=== PATIENT | male | born 1955 | race Caucasian/White ===

== ENCOUNTER 2024-09-28 07:15 | Inpatient (IN) | payer OTHER, SELFPAY ==
[2024-09-28] VITALS (26 sets, daily range): BP systolic 95–140; BP diastolic 50–89; BMI 22.9
[2024-09-28 04:53] LABS: % Basophils 0.2 % (0-2); % Eosinophils 0.4 % (0-6); % Immature Granulocytes 0.4 % (0-0.5); % Lymphocytes 11.3 % (20.5-51.1); % Monocytes 15.5 % (1.7-9.3); % Neutrophils 72.2 % (42.2-75.2); Absolute Lymphocytes 1.2 10^3/uL (1.2-3.4); Absolute Monocytes 1.6 10^3/uL (0.1-0.6); Absolute Neutrophils 7.4 10^3/uL (1.4-6.5); Hematocrit 37.2 % (39.0-52.0); Hemoglobin 13.2 g/dL (13.0-18.0); Mean Corp Hgb Conc. 35.5 g/dL (33.0-37.0); Mean Corpuscular Hgb 31.2 pg (27.0-31.0); Mean Corpuscular Volume 87.9 fL (80.0-94.0); Nucleated Red Blood Cells % 0 % (-); Platelet Count 163 10^3/uL (130-400); Red Blood Cell Count 4.23 10^6/uL (4.70-6.10); Red Cell Dist. Width 13.3 % (11.5-14.5); White Blood Cell Count 10.2 10^3/uL (4.8-10.8)
[2024-09-28 05:00] LABS: ALT (SGPT) 34 U/L (0-50); AST (SGOT) 115 U/L (17-59); Albumin 3.8 g/dl (3.5-5.0); Alkaline Phosphatase 61 U/L (38-126); Blood Urea Nitrogen 19 mg/dl (9-20); Calcium 9.4 mg/dl (8.4-10.2); Carbon Dioxide 24 mmol/L (22-30); Chloride 108 mmol/L (98-107); Estimated Creatinine Clearance 59 ml/min; Glucose 196 mg/dl (70-99); Potassium 3.9 mmol/L (3.5-5.1); Sodium 141 mmol/L (135-145); Total Bilirubin 0.7 mg/dl (0.2-1.3); Total Protein 6.3 g/dl (6.3-8.2); eGFR > 60.00
--- NOTE | 2024-09-28 05:30 | ED.GENMED ---
History of Present Illness
General
Chief Complaint: Chest Pain
Source: patient and ambulance crew
Exam Limitations: none
Time Seen by Provider: 09/28/24 05:29
Nursing documentation reviewed up to this point in time: agreed with
History of Present Illness
History of Present Illness:
Pleasant 68-year-old male presents to the emergency department with substernal chest pain that is present for the last 2 days. He states that it feels like that he has gas. He did not come into the emergency department because he thought that the
gas would resolve. Last evening the pain increased so he called 911. Patient states that he was using a rowing machine on Sunday morning when the pain developed. He went out to dinner on Sunday night and stated that the pain worsened. Patient
denies previous cardiac history. Has not seen a psychology assistant. He does have a history of hypertension. He is diabetic.
Past History
Past History
ED Past Medical History: HTN, NIDDM and Other (Kidney stones, Melanoma L upper arm)
ED Past Surgical History: None
Social History
Tobacco: Non-smoker
Alcohol: None
Personal:
Living: with family
Review of Systems
Review of Systems
Allergies reviewed?: Yes
All Other Systems: ROS reviewed and negative except as documented in HPI and ROS
Constitutional: Reports no symptoms
EENT: Reports no symptoms
Respiratory: Reports no symptoms
Cardiac: Reports chest pain
ABD/GI: Reports no symptoms
: Reports no symptoms
Musculoskeletal: Reports no symptoms
Skin: Reports no symptoms
Neurological: Reports no symptoms
Endocrine: Reports no symptoms
Hematologic/Lymphatic: Reports no symptoms
Psychiatric: Reports no symptoms
Phy Exam
General Physical Exam
General Presentation: well appearing and mild distress
General age: appears stated age
General Skin: warm and dry
General Habitus: normal
General Mental: alert
General Hydration: appears well hydrated
ENT Exam
ENT Exam: EOMI, pharynx normal, neck supple and normocephalic
Eye Exam
Eye Exam: PERRL, cornea clear and conjunctiva normal
Cardiovascular Exam
Cardiovascular Exam: regular rate/rhythm, no edema, no murmur and normal peripheral pulses
Pulmonary Exam
Pulmonary Exam: lungs clear, no respiratory distress, no rales, no crackles, no rhonchi, no stridor, no wheezing and no cough
Gastrointestinal Exam
Gastrointestinal Exam: normal bowel sounds, non tender, soft, no organomegaly, no pulsatile mass and non distended
Neurological Exam
Neurological Exam: alert, oriented x3, no motor deficits and speech normal
Musculoskeletal Exam
Musculoskeletal Exam: full ROM and no edema
Skin Exam
Skin Exam: normal color, warm/dry, no rash and no petechia
Psychiatric Exam
Psychiatric Exam: normal mood/affect
Scores
Heart Score for Chest Pain Patients
STEMI patient?: No
History: Highly Suspicious
ECG: Nonspecific Repolarization
Age: >/= 65 years
Risk Factors: >/= 3 Risk Factors or History of CAD
Troponin: >/= 3 x Normal Limit
Heart Score for Chest Pain Patients: 9
Heart Score Risk: 72.7 % MACE over next 6 weeks
Course
Orders/Labs/Results
Orders:
Orders
09/28/24 04:21
Electrocardiogram (*1) Urgent
Reason for Study: Chest Pain
09/28/24 04:22
EKG- Treatment ONCE
09/28/24 04:36
Complete Blood Count/With Diff Urgent
Comprehensive Metabolic Panel Urgent
Troponin I Urgent
09/28/24 05:29
EKG [Electrocardiogram (*1)] Urgent
Reason for Study: Chest Pain
EKG- Treatment ONCE
Aspirin 325 mg PO NOW STA
Heparin 4,000 units IV NOW STA
09/28/24 05:31
PTT Urgent
09/28/24 05:43
Nitroglycerin Sublingual [Nitrostat (Sublingual)] 0.4 mg SL NOW STA
09/28/24 05:[address] Non Medication Order As Directed
Physician Order: PTT 6 hours after initial start of Heparin infusion
Above order entered?: Yes
09/28/24 05:48
CR Chest Portable - 1 View Urgent
Comment:
Reason For Exam: cp
Reason Study Needs to be Portable: Patient Unstable
09/28/24 Breakfast
NPO
Allow oral meds: Yes
Allow clear liquids: Sips of Clears
Flush (0.9% Sodium Chloride) [Flush (Nss)] See Dose Instructions IV PER PROTOCOL
Heparin 35640 Units/250 ml 25,000 units in 250 ml IV PER PROTOCOL
Weight to be used for heparin protocol in kilograms (kg):: 72.3
Protocol:: Cardiac Tx/Acute Coronary
PTT Goal Range to be used:: PTT 73 to 111 seconds
Order type:: Initial
INITIAL Infusion Dose (UNITS/KG/hr) & then follow protocol:: 15 units/kg/hr
Infusion Dose in UNITS/hr & then follow protocol (UNITS/hr):: 1,100
INFUSION RATE in mL/hr & then follow protocol (mL/hr):: 11
PTT less than or equal to 64 seconds:: Increase rate by 200 units/hr (+ 2 mL/hr)
PTT 64.1 to 72.9 seconds:: Increase rate by 100 units/hr (+ 1 mL/hr)
PTT 73 to 111 seconds:: Target Range. No change in rate.
PTT 111.1 to 130.9 seconds:: Decrease rate by 100 units/hr (- 1 mL/hr)
PTT 131 to 199.9 seconds:: HOLD for 1 hr. Then decrease rate by 200 units/hr (- 2 mL/hr)
PTT greater than or equal to 200 seconds:: HOLD for 2 hrs & Notify Provider. Then decrease by 200 units/hr (-
2 mL/hr)
Lab follow-up:: Each change, PTT q6h until 2 consecutive are therapeutic. Then PTT
daily.
Nitroglycerin Sublingual [Nitrostat (Sublingual)] 0.4 mg SL NOW STA
09/28/24 06:34
Heparin 1000 Units/500 ml [Heparin] 1,000 units in 500 ml .ROUTE .STK-MED
Heparin Sodium,Porcine/Ns/Pf [Heparin 2000 Units/1000 ml] 2,000 unit in 1,000 ml .ROUTE .STK-MED
Lidocaine HCl/Pf [Xylocaine-Mpf 1% Vial] 100 mg .ROUTE .STK-MED ONE
Verapamil Injectable [Isoptin/Verapamil Injection] 5 mg .ROUTE .STK-MED ONE
09/28/24 06:35
Nitroglycerin [Tridil] 1,500 mcg .ROUTE .STK-MED ONE
09/28/24 06:42
Fentanyl Citrate/Pf [Sublimaze] 100 mcg .ROUTE .STK-MED ONE
Midazolam HCl [Versed] 2 mg .ROUTE .STK-MED ONE
09/28/24 06:45
Heparin 10,000 units .ROUTE .STK-MED ONE
09/28/24 06:51
Admit/Transfer Patient As Directed
Co-Sign Provider:
Level of Care: Inpatient admission
Assign to:: IVU
Physician / Group: hospitalist
Diagnosis: NSTEMI
Reason for Hospitalization: NSTEMI
Expected length of stay greater than two midnights?: Yes
ELOS- Estimated Length of Stay in days: 2
I certify the patient meets the requirements for IP care: Yes
Code Status As Directed
Resuscitation Status: Full Code
PRN Pain Medication Management As Directed
May give lesser potent ordered pain med per pt: Yes
preference::
Protocol:: Medication orders for pain may be administered in a
manner that supports deferring to patient preference
when the pt is:
- Requesting an ordered lesser potent pain medication.
Least to most potent pain medications are defined
as: acetaminophen < NSAID < tramadol < opioids
(morphine, oxycodone, hydromorphone).
- Requesting a lesser dose of the same medication IF
ORDERED.
- Requesting a less intrusive route of administration
if both routes are prescribed by the provider (PO <
IV).
09/28/24 08:18
Electrocardiogram (*1) Q6H
Reason for Study: Chest Pain
Comment: at admission and Q3H for total of 3, to be done with each troponin
Acetaminophen [Tylenol] 650 mg PO Q4HPRN PRN
Docusate Sodium [Colace] 100 mg PO BID
Insulin Aspart Corrective Low [Novolog Flexpen-Low Resistance] See Protocol SC AC
Mag Hydrox/Al Hydrox/Simeth [Maalox] 30 ml PO Q4HPRN PRN
Nitroglycerin Sublingual [Nitrostat (Sublingual)] 0.4 mg SL [id number] PRN
Ondansetron Injectable [Zofran] 4 mg IV Q6HPRN PRN
09/28/24 08:18
CARDIOLOGY CONSULT Routine
Consulting Provider: Tessy Epstein
Was physician already notified: Yes
Heparin Protocol- PTT Orders As Directed
PTT per Heparin protocol: -Obtain CBC and baseline PTT - if not already collected.
-Obtain PTT 6 hours from start of infusion. Then, every 6 hours until 2 consecutive
PTT's are therapeutic. Then, PTT Daily.
-With each rate change, obtain PTT every 6 hours until 2 consecutive PTT's are
therapeutic. Then, PTT Daily.
Activity As Directed
Activity Level: With Assistance
Bedside Glucose Monitoring As Directed
Frequency: Q6H
INT (Intravenous Needle Therapy) As Directed
Comment: maintain peripheral IV access
Intake/ Output As Directed
Frequency: Per unit guidelines
Notify MD As Directed
Notify physician if: PTT is greater than or equal to 200.
Pneumatic Compression Sleeves As Directed
Type: Knee high
Vital Signs As Directed
Frequency: q4h
Weight As Directed
Frequency: Daily
O2 Therapy [RESP] Routine
Nasal Cannula Liter Flow: 2 LPM
Titrate/Wean O2 to maintain O2 sat greater than (%): 95
Pulse Ox/spot Check [RESP] Routine
Quantity: 1
Special Instructions: on admission and then every shift if on oxygen
DX Deep Vein Thrombosis Video Routine
09/28/24 08:53
Basic Metabolic Panel Routine
Cardiovascular Evaluation Routine
Troponin I Q3H
Comment: at admit & Q3H for 3 total including ED draws, obtain ECG with each level
09/28/24 11:47
PTT Urgent
09/28/24 14:18
Electrocardiogram (*1) Q6H
Reason for Study: Chest Pain
Comment: at admission and Q3H for total of 3, to be done with each troponin
09/28/24 18:00
Atorvastatin [Lipitor] 40 mg PO QPM
09/28/24 20:18
Electrocardiogram (*1) Q6H
Reason for Study: Chest Pain
Comment: at admission and Q3H for total of 3, to be done with each troponin
09/29/24 08:00
Aspirin Chewable [Low Strength Aspirin] 81 mg PO DAILY
09/30/24 06:00
Complete Blood Count/No Diff Q2D
Comment: notify provider: Platelet count < 130,000 or decrease by 50% from baseline
10/02/24 06:00
Complete Blood Count/No Diff Q2D
Comment: notify provider: Platelet count < 130,000 or decrease by 50% from baseline
10/04/24 06:00
Complete Blood Count/No Diff Q2D
Comment: notify provider: Platelet count < 130,000 or decrease by 50% from baseline
10/06/24 06:00
Complete Blood Count/No Diff Q2D
Comment: notify provider: Platelet count < 130,000 or decrease by 50% from baseline
10/08/24 06:00
Complete Blood Count/No Diff Q2D
Comment: notify provider: Platelet count < 130,000 or decrease by 50% from baseline
10/10/24 06:00
Complete Blood Count/No Diff Q2D
Comment: notify provider: Platelet count < 130,000 or decrease by 50% from baseline
10/12/24 06:00
Complete Blood Count/No Diff Q2D
Comment: notify provider: Platelet count < 130,000 or decrease by 50% from baseline
10/14/24 06:00
Complete Blood Count/No Diff Q2D
Comment: notify provider: Platelet count < 130,000 or decrease by 50% from baseline
Abnormal Lab Results
09/28/24
04:36
RBC 4.23 L 10^6/uL
(4.70-6.10)
Hct 37.2 L %
(39.0-52.0)
MCH 31.2 H pg
(27.0-31.0)
MPV 11.0 H fL
(7.4-10.4)
Absolute Neuts (auto) 7.4 H 10^3/uL
(1.4-6.5)
Absolute Monos (auto) 1.6 H 10^3/uL
(0.1-0.6)
Lymphocytes % 11.3 L %
(20.5-51.1)
Monocytes % 15.5 H %
(1.7-9.3)
Chloride 108 H mmol/L
(98-107)
Glucose 196 H mg/dl
(70-99)
AST 115 H U/L
(17-59)
Troponin I 20.200 H* ng/ml
09/28/24 04:36
09/28/24 04:36
Vital Signs
Initial and Last Documented VS:
Initial Vital Signs
Temp Pulse Resp BP Pulse Ox
97.8 F 74 18 140/76 100
09/28/24 04:18 09/28/24 04:18 09/28/24 04:18 09/28/24 04:18 09/28/24 04:18
Last Documented Vital Signs
Temp Pulse Resp BP Pulse Ox
98.5 F 57 16 106/59 99
09/28/24 22:06 09/28/24 22:30 09/28/24 22:06 09/28/24 22:05 09/28/24 22:06
*Critical Care Note
Total Time (30-74mins, 75-104mins- exclusive of procedures): 41 (Critical care statement: A total of 41 minutes of critical care time was provided for this patient. This time is separate from time utilized to perform the aforementioned documented
procedures. Aggregate critical care time includes only time during which I was engaged in work directl)
Update Note
Update Note:
Spoke with Dr. Sadie Epstein, and Dr. Vitaliy Daugherty. The plan is to get the patient chest pain free. He has already received aspirin and heparin. He is getting nitroglycerin. His pain is currently rated at '0.25 out of 10'.
6:03 AM�at the advice of Dr. Epstein, heart risk non-STEMI Child Day Care Teacher activated.
Patient's pain is still less than 1 despite multiple nitroglycerin
ED Attending Note
-
Portions of this chart may have been created with voice recognition software.� Occasional wrong word or��sound alike� substitutions may have occurred due to the inherent limitations of voice recognition software.
Discharge Plan
Departure
Patient Disposition: RESTORATIVE ART EMBALMER
Date of Disposition: 09/28/24
Time of Disposition: 06:06
Presentation/result/management discussed w/ accepting MD/DO: Hospitalist
Condition: Fair
Discharge Problem:
Non-ST elevated myocardial infarction (non-STEMI)
Interventions
Interventions:
*Risk Screen - Suicide Last Done: 09/28/24 10:52
*General Assessment Last Done: 09/28/24 04:35
*Neglect/Abuse Screening Last Done: 09/28/24 04:18
*ED- Fall Risk Assessment Last Done: 09/28/24 04:35
*ED COVID-19 Vaccine History Last Done: 09/28/24 04:35
*Nursing Disposition Last Done: 09/28/24 07:16
BP-Jivcyg-Kuzgwqxbjy Assessment Last Done: 09/28/24 05:06
ED- Cardiac Assessment Last Done: 09/28/24 05:06
ED-Musculoskeletal Assessment Last Done: 09/28/24 05:06
Discharge Date and Time
Discharge Date/Time: 09/28/24 07:00
[2024-09-28] MEDS: ASPIRIN 325 MG PO (05:47)
[2024-09-28] MEDS: NITROSTAT (SUBLINGUAL) 0.4 MG SL ×2 (05:47→06:01)
[2024-09-28 05:48] LABS: APTT 28.8 Sec (23.4-35.0)
[2024-09-28] MEDS: HEPARIN 4000 UNITS IV (05:48)
[2024-09-28] MEDS: HEPARIN 25000 UNITS/250 ML IV ×2 (06:03→12:18)
--- NOTE | 2024-09-28 06:43 | HPS.HSE ---
Family Physician
-
Family Physician: Anand Mercado
Chief Complaint
-
Chest pain
History of Present Illness
This is a 68-year-old male with past medical history significant for hsp-hhmbqbe-tkigsjsua diabetes, hypertension, Parkinson presenting to the emergency department following a 1 day history of intermittent chest pain.
The patient reported that he had a vigorous rowing exercise in the morning. Afterwards he developed what he called epigastric discomfort which he thought was squeezing type pain. Patient thought this may be related to his heartburn and took some
heartburn remedies. He did have some improvement and decided not to be evaluated in the hospital. Later on during the day and through the night he continued to have pain in his chest. He then felt weak and not his usual self. He denied having
any diaphoresis. He denies any radiation of the pain to his back neck jaws or arms. Denies feeling dizzy or lightheaded.
Patient denies history of exertional chest pain or exertional dyspnea. He denies any recent episodes of palpitations lightheadedness dizziness. He denies any lower extremity swelling. He denies orthopnea or PND. He reports family history with
mother and father with MIs in the 70s. He reports that his last A1c was 9. He denies personal history of coronary artery disease. Denies alcohol use. Denies tobacco.
This pain was improved after sublingual nitroglycerin. He reports that his pain was as high as a 2 out of 10 and currently describes the pain that is 0.1 out of 10. He still feels that there is something painful going on but was mostly negligible.
On arrival in the emergency department blood pressure was in the 110s over 60s with a pulse in the 60s. He was satting 98% on room air and was afebrile. ECG shows T wave inversions in the inferior and lateral leads. His troponin was 20. CBC was
unremarkable stop electrolytes BUN/creatinine were normal. Glucose was 190 but otherwise unremarkable.
Space Technologist activated.
Medical History
Past Medical History
Past Medical History: Reports HTN, NIDDM and Other (Parkinson disease)
Past Surgical History: Reports Other (Hernia repair)
Social History
Tobacco: Non-smoker
Alcohol: Occasional
Drug: None
Personal:
Living: With Family
Employment: Retired
Family History
Family History: Not pertinent
Allergies / Home Medications
Allergies reflects when Allergies were last updated in [facility].
Home Medications with original date entered in [facility]
Allergy/Medication List:
Allergies
Allergy/AdvReac Type Severity Reaction Status Date / Time
No Known Allergies Allergy Verified 09/09/20 07:24
Home Medications
benazepril 5 mg tablet (Lotensin) 5 mg PO DAILY 02/18/20
metformin 500 mg tablet 500 mg PO BID 02/18/20
amlodipine 5 mg tablet 5 mg PO DAILY 09/28/24
empagliflozin 10 mg tablet (Jardiance) 10 mg PO DAILY 09/28/24
Review of Systems
-
History Source: Patient
Constitutional: Reports No Symptoms
EENT: Reports No Symptoms
Respiratory: Reports No Symptoms
Cardiac: Reports Chest Pain
Abdomen/GI: Reports No Symptoms
: Reports No Symptoms
Musculoskeletal: Reports No Symptoms
Skin: Reports No Symptoms
Neurological: Reports No Symptoms
Endocrine: Reports No Symptoms
Hematologic/Lymphatic: Reports No Symptoms
Psych: Reports No Symptoms
Physical Exam
Vital Signs
Vital Signs
Temp Pulse Resp BP Pulse Ox
97.8 F 68 9 109/60 98
09/28/24 04:18 09/28/24 06:00 09/28/24 06:00 09/28/24 06:01 09/28/24 06:00
Physical Exam
General: Well Developed, Well Nourished, No Apparent Distress and Comfortable
HEENT: NormoCephalic, Anicteric, Moist mucous membranes and Atraumatic
Respiratory: Clear
Cardiac: S1/S2 and Regular Rhythm
Breast: Deferred by me
GI: Soft, Non Tender, Non Distended and Normal Bowel Sounds
Rectal: Deferred by Provider
Genito-urinary: Deferred by me
Musculoskeletal: No Clubbing, No Cyanosis and No Edema
Skin: Warm and Dry
Neuro: AO x 3 and Nonfocal/grossly intact
Hematologic/Lymphatic: No Lymphadenopathy
Psych: Calm
Laboratory Results
-
09/28/24 04:36
09/28/24 04:36
Laboratory Results
APTT 28.8 Sec (23.4-35.0) 09/28/24 05:31
Total Bilirubin 0.7 mg/dl (0.2-1.3) 09/28/24 04:36
AST 115 U/L (17-59) H 09/28/24 04:36
ALT 34 U/L (0-50) 09/28/24 04:36
Alkaline Phosphatase 61 U/L (38-126) 09/28/24 04:36
Troponin I 20.200 ng/ml H* 09/28/24 04:36
Data Reviewed
-
Medical Tests (Nuc Med, Echo, EKG etc): Image Personally Visualized and interpreted
Lab Data: Labs Reviewed by me
Old Records: Reviewed
Impression/Plan
-
IMPRESSION:
68-year-old male with history of ivo-dxuhahu-iflpkxrcb diabetes coming in with chest pain found to have elevated troponin of 20 consistent with NSTEMI. Patient is currently chest pain-free with a level that is mostly negligible at 0.1 out of 10.
ECG shows T wave inversions in the inferior leads without any recent priors to compare but compared to older priors this is a significant change. He also has PVCs. BPs in the low 100s after sublingual nitroglycerin. Electrolyte BUN/creatinine are
stable. CBC is unremarkable.
PLAN:
NSTEMI -hemodynamically stable and currently chest pain-free
-Admit to IVU
-Continue aspirin and statin
-N.p.o.
-Space Technologist activated
-Holding antihypertensives
-Interventional cardiology aware taking patient to the Space Technologist immediately
- Echo
- Lipid panel and A1c
Hypertension
-Holding amlodipine and RHIANNON inhibitor for now, restart RHIANNON inhibitor once stable after cath
Diabetes
-Check A1c as above
-Hold metformin sliding scale insulin for now
-Hold Jardiance, restart once stable left cath
DVT prophylaxis -currently on heparin drip
CODE STATUS�full code
--- NOTE | 2024-09-28 07:06 | ITS.CL.CATH ---
Cannery Worker - Catheterization
Cardiac Catheterization
Procedure Report:
LEFT HEART CATHETERIZATION
Date of Procedure: September 28, 2024
Referring: [facility] emergency department
PROCEDURES:
1. Left heart catheterization, coronary angiogram.
2. Moderate sedation
INDICATION: Noe is a 68-year-old gentleman with past medical history of hypertension, hyperlipidemia, xbm-ijramgk-cihyvugxz type 2 diabetes mellitus, mild Parkinson's disease not on chronic medications, non-smoker, prior hernia surgery, melanoma
who presents today with off-and-on substernal chest discomfort that started Sunday going into Sunday after using a rowing machine. He has newly started using the rowing machine for aerobic exercise and has used this 4 times over the last 3 weeks.
He did his normal rowing on Sunday and later that day started appreciating some substernal chest discomfort that he was not sure was potentially related to gas pain given he also had a large [place] meal around similar timing. He then at some
point also noted very mild right jaw pain which made him concerned that it may be cardiac in nature and therefore he presented to the emergency room for evaluation. He received 2 sublingual nitroglycerin in the emergency room and became chest
pain-free he tells me. He has ongoing ' acid reflux' in his abdominal region which was concerning for the emergency room for ongoing cardiac pain and therefore patient was activated as a high risk NSTEMI. He was given full dose aspirin along with
unfractionated heparin and 2 sublingual nitro's in the emergency room. ECG showed sinus rhythm with Q waves inferiorly and posteriorly with nonspecific ST-T wave changes, not meeting STEMI criteria. Initial troponin I was elevated at 20.
ACCESS: Right radial artery, 6Fr. sheath, under US guidance
Ultrasound was utilized for vascular access. The radial artery was visualized under ultrasound, and the vessel was patent and pulsatile. An image was stored permanently in the patient's medical record. Under direct ultrasound guidance, a 6 Greek
sheath was inserted into the artery using a micropuncture kit through a modified Seldinger technique.
HEMODYNAMICS : (mmHg)
AO (s/d) : 85/50
LVEDP : 22
CORONARY FINDINGS
DOMINANCE: Right
LEFT MAIN: The left main artery is a medium caliber vessel which gives rise to the left anterior descending artery and the left circumflex artery. There is 50 to 60% diffuse mid to distal left main stenosis.
LEFT ANTERIOR DESCENDING: The left anterior descending artery is a medium caliber vessel which gives rise to multiple small caliber diagonal branches as it courses to the anterior interventricular groove and wraps around the apex. Proximal to mid
LAD has smooth 70-75% stenosis with distal LAD appearing to be a good bypass target. There is robust jmly-cc-zndhu collaterals.
CIRCUMFLEX: The left circumflex artery is a medium caliber vessel which gives rise to 1 major obtuse marginal branch. Mid left circumflex has a 80 to 85% stenosis. Proximal OM1 has diffuse 50 to 60% stenosis. Distal OM is a good bypass target.
RIGHT CORONARY ARTERY: The right coronary artery is a medium caliber, dominant vessel with 100% proximal RCA chronic total occlusion with robust ryoi-rq-afzgf collaterals.
SEDATION: 37 minutes of procedural sedation was utilized. An independent medical information specialist was present to assist with and help manage the patient's level of consciousness and physiologic status.
RADIATION SUMMARY: Fluoro Time (min): 1.9, Dose (mGy): 325.1, DAP (Gy.cm2) : 24 point
Closure Device: Vascular band over right radial artery, 10 cc of air.
CONCLUSIONS
1. Significant multivessel coronary artery disease involving the left main, LAD, mid circumflex and RCA CHANNEL TURNER.
2. Significantly elevated LVEDP at 22 mmHg.
RECOMMENDATIONS
1. Continue management for acute coronary syndrome with daily baby aspirin, high intensity statin, beta-harry as tolerated and IV unfractionated heparin.
2. Wean radial band per protocol.
3. Check full echocardiogram to assess biventricular function and rule out any significant valvular abnormalities. Trend troponins and EKGs while closely monitoring on telemetry.
4. Consult CT surgery for consideration for coronary artery bypass grafting with bypasses to LAD, OM, RPDA
5. Continued aggressive management of cardiovascular risk factors.
6. Eventual referral for outpatient cardiac rehab.
Tessy Epstein MD, FACC, [facility]
--- NOTE | 2024-09-28 07:11 | CON.CAR ---
Consultation
Consultation Request
Date/Time Consultation Requested: September 28, 2024
Date/Time Consultation Performed: September 28, 2024
Requesting Provider: [facility]
Performing Provider: Tessy Epstein
Reason for Consultation: CP
Medical History
-
Chief Complaint: Chest Pain
History of Present Illness:
Noe is a 68-year-old gentleman with past medical history of hypertension, hyperlipidemia, rtr-ozgyrtb-dembvvpag type 2 diabetes mellitus, mild Parkinson's disease not on chronic medications, non-smoker, prior hernia surgery, melanoma who presents
today with off-and-on substernal chest discomfort that started Sunday going into Sunday after using a rowing machine. He has newly started using the rowing machine for aerobic exercise and has used this 4 times over the last 3 weeks. He did his
normal rowing on Sunday and later that day started appreciating some substernal chest discomfort that he was not sure was potentially related to gas pain given he also had a large [place] meal around similar timing. He then at some point also noted
very mild right jaw pain which made him concerned that it may be cardiac in nature and therefore he presented to the emergency room for evaluation. He received 2 sublingual nitroglycerin in the emergency room and became chest pain-free he tells me.
He has ongoing ' acid reflux' in his abdominal region which was concerning for the emergency room for ongoing cardiac pain and therefore patient was activated as a high risk NSTEMI. He was given full dose aspirin along with unfractionated heparin
and 2 sublingual nitro's in the emergency room. ECG showed sinus rhythm with Q waves inferiorly and posteriorly with nonspecific ST-T wave changes, not meeting STEMI criteria. Initial troponin I was elevated at 20.
Past Medical History
Past Medical History: HTN, Hypercholesterolemia and NIDDM
Social History
Tobacco: Non-Smoker
Alcohol: None
Drug: None
Personal:
Living: With Family
Employment: Retired ([employer])
Family History
Family History: CAD (At the age of 75)
Allergies / Home Medications
Allergy/AdvReac Type Severity Reaction Status Date / Time
No Known Allergies Allergy Verified 09/09/20 07:24
�Medication �Instructions �Recorded �Confirmed �Type
benazepril 5 mg tablet (Lotensin) 5 mg PO DAILY 02/18/20 09/28/24 History
metformin 500 mg tablet 500 mg PO BID 02/18/20 09/28/24 History
amlodipine 5 mg tablet 5 mg PO DAILY 09/28/24 09/28/24 History
empagliflozin 10 mg tablet 10 mg PO DAILY 09/28/24 09/28/24 History
(Jardiance)
Review of Systems
-
All other systems: Negative unless noted
Physical Exam
Vital Signs
Temp Pulse Resp BP Pulse Ox
97.8 F 68 9 109/60 98
09/28/24 04:18 09/28/24 06:00 09/28/24 06:00 09/28/24 06:01 09/28/24 06:00
Lab Results
09/28/24 04:36
09/28/24 04:36
Troponin I 20.200 ng/ml H* 09/28/24 04:36
Physical Exam
General: Well Developed, Well Nourished, No Apparent Distress and Comfortable
Respiratory: Clear and Non Labored Respirations
Cardiac: S1/S2 and Regular Rhythm; Negative Murmur, Peripheral Edema or JVD
GI: Soft, Non Tender, Non Distended and Normal Bowel Sounds
Musculoskeletal: No Clubbing, No Cyanosis and No Edema
Skin: Warm and Dry
Neuro: Alert and AO x 3
Psych: Calm
Impression / Plan
-
Noe is a 68-year-old gentleman with past medical history of hypertension, hyperlipidemia, wso-ztumolt-wpxopxcyz type 2 diabetes mellitus, mild Parkinson's disease not on chronic medications, non-smoker, prior hernia surgery, melanoma who presents
today with off-and-on substernal chest discomfort that started Sunday going into Sunday after using a rowing machine. He has newly started using the rowing machine for aerobic exercise and has used this 4 times over the last 3 weeks. He did his
normal rowing on Sunday and later that day started appreciating some substernal chest discomfort that he was not sure was potentially related to gas pain given he also had a large [place] meal around similar timing. He then at some point also noted
very mild right jaw pain which made him concerned that it may be cardiac in nature and therefore he presented to the emergency room for evaluation. He received 2 sublingual nitroglycerin in the emergency room and became chest pain-free he tells me.
He has ongoing ' acid reflux' in his abdominal region which was concerning for the emergency room for ongoing cardiac pain and therefore patient was activated as a high risk NSTEMI. He was given full dose aspirin along with unfractionated heparin
and 2 sublingual nitro's in the emergency room. ECG showed sinus rhythm with Q waves inferiorly and posteriorly with nonspecific ST-T wave changes, not meeting STEMI criteria. Initial troponin I was elevated at 20.
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
Impression:
Concern for high risk NSTEMI however he tells me he has been chest pain-free since after 2 sublingual nitroglycerin
Hypertension
Hyperlipidemia
Rqb-fjlpudo-odfoafule type 2 diabetes mellitus
Mild Parkinson's disease, not on chronic medication
Melanoma
Non-smoker
Prior hernia repair
Retired
Family history of CAD at the age of 75
Recommendations:
1. As discussed with the emergency room continue treatment for presumed acute coronary syndrome in the setting of initial troponin of 20 with full dose aspirin, IV heparin, high intensity statin. Hold off on a second antiplatelet agent until after
the heart catheterization given his history of diabetes until we rule out multivessel coronary artery disease.
2. Given in the emergency room there was concern about ongoing chest discomfort, decision was made to bring patient to the heart catheterization lab urgently due to concern for high risk NSTEMI and ongoing chest discomfort.
3. Continue to trend troponins and EKGs.
4. Full echocardiogram to assess biventricular function and rule out any significant valvular abnormalities.
5. Aggressive management of cardiovascular risk factors.
6. Further recommendations based on findings on the heart catheterization.
Tessy Epstein MD, [facility], [facility]
Data Reviewed
-
EKG: Tracing Personally Visualized and interpreted
Radiology: Report Reviewed by me
Medical Tests (Nuc Med, Echo etc): Image Personally Visualized and interpreted
Labs: Labs Reviewed by me
Old Records: Reviewed
--- NOTE | 2024-09-28 07:16 | EDRN ---
Report to manager laboratory and patient transported upstairs to cathlab.
[2024-09-28 07:31] LABS: ACT-LR - POC 199 Seconds (116-155)
--- NOTE | 2024-09-28 08:39 | PTCARENOTE ---
Rec'd Pt 0815, s/p card cath, A,A+Ox3. Denies pain. R radial band in place. good radial pulse. VSS
[2024-09-28 09:16] LABS: PT 14.5 Sec (11.4-14.6)
[2024-09-28 09:30] LABS: APTT > 200.0 Sec (23.4-35.0)
[2024-09-28 10:01] LABS: Blood Urea Nitrogen 18 mg/dl (9-20); Calcium 9.6 mg/dl (8.4-10.2); Carbon Dioxide 24 mmol/L (22-30); Chloride 108 mmol/L (98-107); Estimated Creatinine Clearance 54 ml/min; Glucose 180 mg/dl (70-99); HDL Cholesterol 45 mg/dl; LDL Cholesterol, Calculated 103 mg/dl; Potassium 4.4 mmol/L (3.5-5.1); Sodium 141 mmol/L (135-145); Total Cholesterol 157 mg/dl (50-199); Triglyceride 45 mg/dl (10-149); Very Low Density Lipoprotein 9 mg/dl (0-30)
[2024-09-28] MEDS: COLACE 100 MG PO ×2 (10:14→19:48)
[2024-09-28] MEDS: CRESTOR 40 MG PO ×2 (10:14→10:17)
[2024-09-28] MEDS: NOVOLOG FLEXPEN-LOW RESISTANCE 1 UNITS SC (10:14)
[2024-09-28] MEDS: NSS 1000 IV (10:22)
[2024-09-28] MEDS: LASIX 40 MG IV (10:32)
--- NOTE | 2024-09-28 11:53 | W.PN.HOSP.TC ---
Today's Communication/Plan
-
- follow up cardiology
- restart meds tomm
Assessment / Plan
Assessment / Plan
NSTEMI status post catheterization day 1:
- Patient's vitals are stable, monitor on telemetry
- Cath report shows significant coronary artery disease involving the left main, LAD, mid circumflex and RCA, significantly elevated left ventricular diastolic pressure 22 mmHg
- Continue aspirin 81 for secondary prevention of cardiovascular events
- High intensity statin to reduce LDL and stabilize coronary plaques
- Metoprolol succinate 25 Mg for reducing the heart rate and the blood pressure thereby reducing overall workload on the heart, prevent arrhythmias
- Heparin for DVT prophylaxis
- Nitroglycerin, Zofran as needed
-Echo to assess biventricular function is pending
-Trend troponins (most recent troponin is 25 and elevated) and EKGs
- Cardiology is following
Essential hypertension:
-Blood pressures 104/89
- Hold amlodipine and RHIANNON inhibitor's for now, will restart once patient is stable after cath
Bru-hpxxrhy-nvtqlmsks diabetes type 2:
- A1c of 8, patient needs tighter glucose control as he is now in secondary prevention category
- Jardiance and metformin are on hold, will restart after patient is stable after cath
DVT prophylaxis heparin
Full code
Anticipated Discharge: 24 - 48 hours
Subjective/Interval History
-
Date of Service: September 28, 2024
Patient is s/p catheterization this afternoon.
68-year-old male with a past medical history of hypertension, ewo-zkxheau-eicqsokvk diabetes mellitus, Parkinson's disease he reported substernal chest discomfort and that started Sunday after using a row machine at home. The pain was an
uncomfortable sensation which he rated as a 2 out of 10. He thought the pain was related to gas and took some medication to relieve what he thought was gas. The pain got worse on Sunday, 4 of 10, with exertional dyspnea and mild radiation to the
jaw, weakness which prompted him to present to the emergency room for evaluation. He received 2 nitroglycerin in the emergency room and the chest pain went away. Initial troponin 1 elevated at 20. EKG did not meet STEMI criteria however patient
was complaining of ongoing abdominal pain, which was concerning for NSTEMI and and thus Button Reclaimer was activated.
Objective Data
-
Labs:
Laboratory Results
09/28/24 09/28/24 09/28/24
04:36 05:31 08:53
WBC 10.2
Hgb 13.2
Hct 37.2 L
Plt Count 163
PT 14.5
INR 1.10
APTT 28.8 > 200.0 H*
Sodium 141 141
Potassium 3.9 4.4
Chloride 108 H 108 H
Carbon Dioxide 24 24
BUN 19 18
Creatinine 1.2 1.3
Glucose 196 H 180 H
Calcium 9.4 9.6
Total Bilirubin 0.7
AST 115 H
ALT 34
Alkaline Phosphatase 61
09/28/24
11:47
WBC
Hgb
Hct
Plt Count
PT
INR
APTT Pending
Sodium
Potassium
Chloride
Carbon Dioxide
BUN
Creatinine
Glucose
Calcium
Total Bilirubin
AST
ALT
Alkaline Phosphatase
Vital Signs:
Vital Signs
Temp Pulse Resp BP Pulse Ox
97.2 F 55 20 104/89 100
09/28/24 11:41 09/28/24 09:45 09/28/24 11:41 09/28/24 09:30 09/28/24 11:41
I&O
09/27/24 09/28/24 09/29/24
06:59 06:59 06:59
Intake Total 324 / 324
Output Total 400 / 400
Balance -76 / -76
Review of Systems
-
History Source: Patient
Constitutional: Denies Fever or Fatigue
Respiratory: Reports No Symptoms
Cardiac: Reports No Symptoms
Abdomen/GI: Reports No Symptoms
Musculoskeletal: Reports No Symptoms
Neuro: Reports No Symptoms
Physical Exam
-
General: Well Developed and Well Nourished
Respiratory: Clear to Auscultation
Cardiac: Regular Rhythm and S1/S2
GI: Soft, Nontender and Nondistended
Musculoskeletal: No Clubbing, No Cyanosis and No Edema
Skin: Warm and Dry
Neuro: Awake, Alert, Oriented and AO x 3
Psych: Calm
Data Reviewed
-
Labs: Labs Reviewed by me and Discussed with Physician
[2024-09-28 12:08] LABS: APTT 36.8 Sec (23.4-35.0)
[2024-09-28] MEDS: TOPROL XL 25 MG PO (12:34)
--- NOTE | 2024-09-28 13:14 | W.PN.UPDATE ---
Update Note
Progress Note Update
I saw and evaluated the patient. I reviewed the resident�s note and agree with findings and plan as documented in the resident�s note.
Currently denies chest pain:
Gen: NAD, AAOx3.
Eyes: EOMI, PERRLA, no scleral icterus.
Neck: supple.
CV: RRR, +S1/S2, no m/r/g.
Resp: CTAB, no rales, wheezes, or rhonchi.
Abd: +BS, soft, NT, ND
Skin: No rashes.
Neuro: CN 2-12 intact, non-focal.
Psych: Normal mood and affect.
CXR: No acute disease of the chest.
Cardiac cath:
1. 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
2. Significantly elevated LVEDP at 22 mmHg.
Acute NSTEMI:
-ECG (read by me): SR with sinus arrhythmia @ 64, TWi II, III, IVF, no acute ST changes
-cath above, c/s CT surgery
-trend trop
-cont heparin gtt
-cont ASA/BB/statin
-check echo
Other problems:
Essential HTN: cont BB
DM2: a1c 8.0, SSI (change to mod resistance)/accuchecks. Start Lantus 10U.
Parkinson's disease
FULL/Heparin gtt
--- NOTE | 2024-09-28 13:55 | CONSULT.CT ---
Consultation
-
Date/Time Consultation Requested: 09/28/24
Date/Time Consultation Performed: 09/28/24
Requesting Provider: Tessy Epstein
Performing Provider: Racheal DE LEON
Reason for Consultation: CABG evaluation
Patient History
Physicians
Family Physician: Anand Mercado
Outpatient Typesetting Machine Operator/Tender: none prior to admission
Inpatient Typesetting Machine Operator/Tender: Tessy Epstein
History of Present Illness
68-year-old male with past medical history of hypertension, hyperlipidemia, type 2 diabetes mellitus, mild Parkinson's disease not on chronic medications, melanoma was admitted to [facility] ER on 09/28/26 with complaint of intermittent substernal chest
discomfort that started Sunday evening after using a rowing machine and eating a large meal. Today patient experienced very mild right jaw pain and epigastric pain associated with substernal discomfort. Denies, nausea, vomiting, dizziness, or
peripheral edema. Patient's chest pain resolved in the emergency room after administration of 2 sublingual nitroglycerin tablets. Patient ruled in for NSTEMI with initial troponin I 20. Patient taken to Slip Cover Estimator for left heart cath which reported
triple-vessel disease. A TTE is pending at this time. Patient currently pain-free on IV heparin.
Pertinent negatives: Denies CVA/TIA, dysphagia, asthma/COPD, radiation to the chest, liver or kidney issues, vein stripping
Past Medical History
Past Medical History: Cancer (melanoma left upper arm), HTN, Hypercholesterolemia, NIDDM (oral agents-MFM, Jardiance) and Other (Nephrolithiasis, mild Parkinson's versus essential tremor)
Past Surgical History
Past Surgical History: Other (Right inguinal hernia repair, right lithotripsy, left upper extremity melanoma resection)
Family History
Mother: N/A
Father: N/A
Social History
Alcohol: None
Drug: None
Tobacco: Non-Smoker
Personal:
Living: With Spouse
Employment: Retired ([employer])
Allergies
Allergy/AdvReac Type Severity Reaction Status Date / Time
No Known Allergies Allergy Verified 09/09/20 07:24
Home Medications
�Medication �Instructions �Recorded �Confirmed �Type
benazepril 5 mg tablet (Lotensin) 5 mg PO DAILY 02/18/20 09/28/24 History
metformin 500 mg tablet 500 mg PO BID 02/18/20 09/28/24 History
amlodipine 5 mg tablet 5 mg PO DAILY 09/28/24 09/28/24 History
empagliflozin 10 mg tablet 10 mg PO DAILY 09/28/24 09/28/24 History
(Jardiance)
Review of Systems
-
History Source: Patient
General: Reports No Symptoms
HEENT: Reports No Symptoms
Respiratory: Reports No Symptoms
Cardiac: Reports Chest Pain (On admission, currently resolved)
Abdomen/GI: Reports Indigestion (Sensation on admission, currently resolved)
: Reports No Symptoms
Musculoskeletal: Reports No Symptoms
Skin: Reports No Symptoms
Neurological: Reports No Symptoms
Vascular: Reports No Symptoms
Physical Exam
Vital Signs
Temp 97.2 F 09/28/24 11:41
Temp route: Oral 09/28/24 11:41
Pulse 73 09/28/24 12:45
Rhythm: Normal sinus rhythm 09/28/24 10:44
With- PVC's Monomorphic 09/28/24 10:44
Resp Rate 20 09/28/24 11:41
Blood pressure 104/82 09/28/24 12:45
Blood pressure extremity used: Left upper arm 09/28/24 11:41
Position: Lying 09/28/24 11:41
MAP (cuff-Chip Monitor) 91 09/28/24 12:45
SaO2 98 09/28/24 12:45
Oxygen Mode of Delivery Room air 09/28/24 11:41
Acceptable pain level during hospitalization? 0 09/28/24 04:18
Can the patient verbally communicate their pain? Yes 09/28/24 10:44
Pain scale ratin 09/28/24 10:38
Actual Weight 72.3 kg 09/28/24 04:35
Body Mass Index (BMI) 22.9 09/28/24 04:35
Labs
09/28/24 04:36
09/28/24 08:53
PT 14.5 Sec (11.4-14.6) 09/28/24 08:53
APTT 36.8 Sec (23.4-35.0) H 09/28/24 11:47
Hemoglobin A1c 8.0 % (4.0-5.6) H 09/28/24 08:53
Troponin I Cancelled 09/28/24 14:18
Diagnostic Studies
LHC 09/28/24 via R radial (Dr. Epstein):
DOMINANCE: Right
LEFT MAIN: 50-60% diffuse mid to distal left main stenosis.
LEFT ANTERIOR DESCENDING: Proximal to mid LAD has smooth 70-75% stenosis with distal LAD appearing to be a good bypass target. There is robust druk-ze-ntjtr collaterals.
CIRCUMFLEX: Mid left circumflex has a 80-85% stenosis. Proximal OM1 has diffuse 50-60% stenosis. Distal OM is a good bypass target.
RIGHT CORONARY ARTERY: 100% proximal RCA chronic total occlusion with robust tndl-re-hmwoy collaterals.
TTE 09/28/24:
EF 45-50%.
Trace AI, mild MR, mild TR, trace PI
Exam
General: Well Developed, Well Nourished and No Apparent Distress
HEENT: Normocephalic, Anicteric, Moist Mucous Membranes and PERRLA
Neck: Trachea Midline
Respiratory: Clear
Cardiac: S1/S2 and Regular Rhythm
GI: Soft, Non Tender, Non Distended and Normal Bowel Sounds
Rectal: Deferred by Provider
Skin: Warm and Dry
Neuro: AO x 3, No Motor Deficits and Tremors (intermittent B/L intentional hand tremor)
Extremities: Pulses (+1/4 B/L DP pulses)
Lymph: No Lymphadenopathy
Psych: Calm
Assessment / Plan
-
68-year-old male admitted with chest pain/epigastric pain and ruled in for NSTEMI (troponin 20). Left heart catheter revealed triple-vessel coronary disease.
- Surgeon to review imaging and discuss risk/benefit of CABG
- Preop diagnostics ordered
-Jardiance will need to be held 3 days prior to surgery
-Benazepril will need to be held 2 days prior to surgery
Data Reviewed
-
EKG: Report Reviewed by me and Discussed with Physician
Slip Cover Estimator: Report Reviewed by me and Discussed with Physician
Echo: Report Reviewed by me and Discussed with Physician
Radiology: Report Reviewed by me and Discussed with Physician
Labs: Labs Reviewed by me and Discussed with Physician
Old Records: Reviewed
[2024-09-28 14:33] LABS: Glucose - Point of Care 220 mg/dl (70-99)
[2024-09-28] MEDS: NOVOLOG FLEXPEN-LOW RESISTANCE SC (14:34)
[2024-09-28] MEDS: LANTUS 0.1 UNITS SC (14:34)
[2024-09-28] MEDS: TYLENOL 650 MG PO ×2 (15:28→22:14)
[2024-09-28 16:07] LABS: Glucose - Point of Care 193 mg/dl (70-99)
[2024-09-28] MEDS: NOVOLOG FLEXPEN-MODERATE RESISTANCE 1 UNITS SC (16:08)
--- NOTE | 2024-09-28 16:16 | PTCARENOTE ---
Pt c/o cramping in L thigh, requested Tylenol. Med with Tylenol 650 mg po as ordered with relief noted.
[2024-09-28 18:11] LABS: APTT 43.6 Sec (23.4-35.0)
[2024-09-28 22:04] LABS: Glucose - Point of Care 132 mg/dl (70-99)
--- NOTE | 2024-09-28 23:19 | PTCARENOTE ---
Pt rec'd at shift change awake,alert no c/o cp. Heparin at 1300 units/hr. Right radial site DDI. Education regarding preop testing given to pt.
[2024-09-29 01:30] LABS: APTT 68.3 Sec (23.4-35.0)
[2024-09-29 04:54] VITALS: BP 104/63
[2024-09-29] MEDS: HEPARIN 25000 UNITS/250 ML IV ×2 (05:15→22:47)
[2024-09-29 05:18] VITALS: BMI 21.5
[2024-09-29 06:57] VITALS: BP 105/68
[2024-09-29 07:02] LABS: Glucose - Point of Care 124 mg/dl (70-99)
[2024-09-29 07:31] LABS: % Basophils 0.4 % (0-2); % Eosinophils 0.6 % (0-6); % Immature Granulocytes 0.4 % (0-0.5); % Lymphocytes 16.2 % (20.5-51.1); % Neutrophils 67.4 % (42.2-75.2); Absolute Eosinophils 0.1 10^3/uL (0-0.7); Absolute Lymphocytes 1.4 10^3/uL (1.2-3.4); Absolute Monocytes 1.3 10^3/uL (0.1-0.6); Absolute Neutrophils 5.8 10^3/uL (1.4-6.5); Hematocrit 36.1 % (39.0-52.0); Hemoglobin 12.7 g/dL (13.0-18.0); Mean Corp Hgb Conc. 35.2 g/dL (33.0-37.0); Mean Platelet Volume 12.1 fL (7.4-10.4); Nucleated Red Blood Cells % 0 % (-); Platelet Count 135 10^3/uL (130-400); Red Cell Dist. Width 13.2 % (11.5-14.5); White Blood Cell Count 8.5 10^3/uL (4.8-10.8)
--- NOTE | 2024-09-29 07:47 | W.PN.UPDATE ---
Update Note
Progress Note Update
I saw and evaluated the patient. I reviewed the resident�s note and agree with findings and plan as documented in the resident�s note.
Denies CP/SOB.
Gen: NAD, AAOx3.
Eyes: EOMI, PERRLA, no scleral icterus.
Neck: supple.
CV: RRR, +S1/S2, no m/r/g.
Resp: CTAB, no rales, wheezes, or rhonchi.
Abd: +BS, soft, NT, ND
Skin: No rashes.
Neuro: CN 2-12 intact, non-focal.
Psych: Normal mood and affect.
CXR: No acute disease of the chest.
Cardiac cath:
1. 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
2. Significantly elevated LVEDP at 22 mmHg.
Acute NSTEMI:
-ECG (read by me): SR with sinus arrhythmia @ 64, TWi II, III, IVF, no acute ST changes
-cath above
-CT surgery following
-trop trending down
-cont heparin gtt
-cont ASA/BB/statin
-check echo
Other problems:
Essential HTN: cont BB
DM2: a1c 8.0, SSI/accuchecks/Lantus
Parkinson's disease
FULL/Heparin gtt
[2024-09-29 07:49] LABS: APTT 85.2 Sec (23.4-35.0)
[2024-09-29 08:06] LABS: ALT (SGPT) 31 U/L (0-50); AST (SGOT) 72 U/L (17-59); Albumin 3.8 g/dl (3.5-5.0); Alkaline Phosphatase 60 U/L (38-126); Blood Urea Nitrogen 28 mg/dl (9-20); Calcium 9.2 mg/dl (8.4-10.2); Carbon Dioxide 22 mmol/L (22-30); Chloride 105 mmol/L (98-107); Estimated Creatinine Clearance 52 ml/min; Glucose 130 mg/dl (70-99); HDL Cholesterol 41 mg/dl; LDL Cholesterol, Calculated 88 mg/dl; Potassium 3.8 mmol/L (3.5-5.1); Sodium 139 mmol/L (135-145); Total Bilirubin 0.9 mg/dl (0.2-1.3); Total Cholesterol 149 mg/dl (50-199); Total Protein 6.1 g/dl (6.3-8.2); Triglyceride 101 mg/dl (10-149); Very Low Density Lipoprotein 20 mg/dl (0-30)
--- NOTE | 2024-09-29 08:11 | W.PN.CARDCBS ---
Addendum entered and electronically signed by Shiv Zimmerman MD 09/29/24 12:50:
I saw and examined the patient.
The STORE MGR or PA's note was reviewed and I agree with the note.
Comment: General: Well developed, well nourished in NAD.
Neck: Supple, no JVD, HJR, carotids +2 B/L, no bruits bilaterally.
Heart: Non displaced PMI, RRR, no murmurs, No S3, S4, no rubs.
Lungs: Clear to auscultation bilaterally, no wheeze, rhonchi, rubs bilaterally,
normal expiratory phase.
Extremities: No clubbing, cyanosis or edema bilaterally.
Neuro: Grossly nonfocal, awake, alert and oriented x3.
Ejection fraction 45 to 50%, inferior wall hypokinesis, basal inferolateral akinesis.
Stable cardiology status. Continue IV heparin. For CABG later this week. Discussed with patient and at bedside.
Original Note:
Today's Communication / Plan
-
-echo today
-tentative plan for CABG later this week
Impression / Plan
-
Noe is a 68-year-old gentleman with past medical history of hypertension, hyperlipidemia, lsn-nzwjfva-cqiowhegu type 2 diabetes mellitus, mild Parkinson's disease not on chronic medications, non-smoker, prior hernia surgery, melanoma who
presented to ED 09/28/2024 with off-and-on substernal chest discomfort that started Sunday going into Sunday after using a rowing machine. He has newly started using the rowing machine for aerobic exercise and has used this 4 times over the last 3
weeks. He did his normal rowing on Sunday and later that day started appreciating some substernal chest discomfort that he was not sure was potentially related to gas pain given he also had a large [place] meal around similar timing. He then at
some point also noted very mild right jaw pain which made him concerned that it may be cardiac in nature and therefore he presented to the emergency room for evaluation. He received 2 sublingual nitroglycerin in the emergency room and became chest
pain-free he tells me. He has ongoing ' acid reflux' in his abdominal region which was concerning for the emergency room for ongoing cardiac pain and therefore patient was activated as a high risk NSTEMI. He was given full dose aspirin along with
unfractionated heparin and 2 sublingual nitro's in the emergency room. ECG showed sinus rhythm with Q waves inferiorly and posteriorly with nonspecific ST-T wave changes, not meeting STEMI criteria. Initial troponin I was elevated at 20.
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
PCP: Anand Mercado
Impression:
NSTEMI
MV CAD
Hypertension
Hyperlipidemia
Fgz-tryhtkn-teyueumtk type 2 diabetes mellitus
Mild Parkinson's disease, not on chronic medication
Melanoma
Non-smoker
Prior hernia repair
Retired
Family history of CAD at the age of 75
Cardiovascular diagnostic testing:
Left heart cath 09/28/2024:
Left main: 56% mid to distal disease
LAD: Proximal to mid LAD 7075% stenosis with distal LAD good bypass target, robust pdhy-jw-mquvv collaterals
Left circumflex: Mid left circumflex 80 to 85% stenosis. Proximal OM1 diffuse 50 to 60% stenosis. Distal OM good bypass target.
RCA: 100% proximal RCA CAN CRIMPER with robust qcfm-jf-gmgmt collaterals
Plan:
- Cath with multivessel CAD, CT surgery evaluation for CABG
- Troponin peak 26.8, trending down 20.9
- Continue aspirin, high intensity statin, beta-harry
-Echo today
- Jardiance to be held for 3 days prior to surgery
- RHIANNON inhibitor to be held 2 days prior to surgery
-cont Heparin gtt
-Aggressive management of cardiovascular risk factors
-EKG NSR with first degree AVB, inf OK, PACs
-telem personally reviewed: NSR HRs 50-70s, pacs, pvcs
Progress Note - Account Resolution Expert
Subjective
Date of Service: September 29, 2024
-no CP
-'feel better than I've felt in a long time'
Objective
Labs:
09/29/24 07:17
09/29/24 07:17
Labs
Hgb 12.7 g/dL (13.0-18.0) L 09/29/24 07:17
Hct 36.1 % (39.0-52.0) L 09/29/24 07:17
Plt Count 135 10^3/uL (130-400) 09/29/24 07:17
PT 14.5 Sec (11.4-14.6) 09/28/24 08:53
INR 1.10 09/28/24 08:53
APTT 85.2 Sec (23.4-35.0) H 09/29/24 07:17
Sodium 139 mmol/L (135-145) 09/29/24 07:17
Potassium 3.8 mmol/L (3.5-5.1) 09/29/24 07:17
BUN 28 mg/dl (9-20) H 09/29/24 07:17
Creatinine 1.3 mg/dL (0.7-1.3) 09/29/24 07:17
Glucose 130 mg/dl (70-99) H 09/29/24 07:17
Troponins
09/28/24 09/28/24 09/28/24
04:36 08:15 08:53
Troponin I 20.200 H* Cancelled 25.000 H*
09/28/24 09/28/24 09/28/24
11:18 14:18 14:22
Troponin I Cancelled Cancelled 26.000 H*
09/28/24 09/29/24
20:38 07:17
Troponin I 26.800 H* 20.900 H*
Vital Signs and I&O:
Vital Signs
Temp Pulse Resp BP Pulse Ox
97.7 F 63 16 105/68 100
09/29/24 06:59 09/29/24 07:30 09/29/24 06:59 09/29/24 06:57 09/29/24 06:59
Vital Signs
Temp Pulse Resp BP Pulse Ox
97.7 F 63 16 105/68 100
09/29/24 06:59 09/29/24 07:30 09/29/24 06:59 09/29/24 06:57 09/29/24 06:59
Intake & Output
09/27/24 09/28/24 09/29/24 09/30/24
06:59 06:59 06:59 06:59
Intake Total 324 / 324
Output Total 2845 / 2845
Balance -2521 / -2521
Physical Exam
Physical Exam
GEN: No distress, awake, Ox3
HEENT: supple, anicteric, mmm
LUNGS: CTA, no wheezes/rales
CV: Reg, S1/S2, no murmur
ABD: soft, BS+, NT/ND
EXT: No edema
NEURO: Gross non-focal
SKIN: No rash
--- NOTE | 2024-09-29 08:14 | W.PN.HOSP.TC ---
Today's Communication/Plan
-
- f/u with cardiology and cardiovascular surgery
Assessment / Plan
Assessment / Plan
NSTEMI status post catheterization day 1:
- Patient's vitals are stable, monitor on telemetry
- Cath report shows significant coronary artery disease involving the left main, LAD, mid circumflex and RCA, significantly elevated left ventricular diastolic pressure 22 mmHg
- Continue aspirin 81 for secondary prevention of cardiovascular events
- High intensity statin to reduce LDL and stabilize coronary plaques
- Metoprolol succinate 25 Mg for reducing the heart rate and the blood pressure thereby reducing overall workload on the heart, prevent arrhythmias
- Heparin for DVT prophylaxis
- Nitroglycerin, Zofran as needed
-Echo to assess biventricular function is pending
-Trend troponins (most recent troponin is 28 and elevated) and EKGs
- Cardiology is following
- Cardiovascular surgeon is yet to discuss plan for CABG
Essential hypertension:
-Blood pressures 105/68
- Hold amlodipine and RHIANNON inhibitor's for now, will restart once patient is stable after CABG
Bar-ssugkmw-lgmxpayec diabetes type 2:
- A1c of 8, patient needs tighter glucose control as he is now in secondary prevention category
- Jardiance and metformin are on hold for anticipated CABG, patient is on insulin for now
DVT prophylaxis heparin
Full code
Anticipated Discharge: 24 - 48 hours
Subjective/Interval History
-
Date of Service: September 29, 2024
No acute medical complaints.
Objective Data
-
Labs:
Laboratory Results
09/29/24 09/29/24
01:08 07:17
WBC 8.5
Hgb 12.7 L
Hct 36.1 L
Plt Count 135
APTT 68.3 H 85.2 H
Sodium 139
Potassium 3.8
Chloride 105
Carbon Dioxide 22
BUN 28 H
Creatinine 1.3
Glucose 130 H
Calcium 9.2
Total Bilirubin 0.9
AST 72 H
ALT 31
Alkaline Phosphatase 60
Vital Signs:
Vital Signs
Temp Pulse Resp BP Pulse Ox
97.7 F 63 16 105/68 100
09/29/24 06:59 09/29/24 07:30 09/29/24 06:59 09/29/24 06:57 09/29/24 06:59
I&O
09/28/24 09/29/24 09/30/24
06:59 06:59 06:59
Intake Total 324 / 324
Output Total 2845 / 2845
Balance -2521 / -2521
Review of Systems
-
History Source: Patient
All other systems: Reviewed and negative
Physical Exam
-
General: Well Developed
Respiratory: Clear to Auscultation
Cardiac: Regular Rhythm and S1/S2
GI: Soft, Nontender, Nondistended and Normal Bowel Sounds
Musculoskeletal: No Clubbing, No Cyanosis and No Edema
Skin: Warm and Dry
Neuro: Awake, Alert, Oriented and AO x 3
Psych: Calm
Data Reviewed
-
Labs: Labs Reviewed by me and Discussed with Physician
[2024-09-29] MEDS: TOPROL XL 25 MG PO (08:17)
[2024-09-29] MEDS: LOW STRENGTH ASPIRIN 81 MG PO (08:18)
[2024-09-29] MEDS: LANTUS 0.1 UNITS SC (08:18)
[2024-09-29] MEDS: COLACE 100 MG PO ×2 (08:18→20:36)
[2024-09-29] MEDS: NOVOLOG FLEXPEN-MODERATE RESISTANCE SC ×2 (08:34→12:32)
--- NOTE | 2024-09-29 08:34 | PTCARENOTE ---
Rec'd pt this shift awake and alert in bed. Pt NSR with 1st degree HB and PAC's. Pt on RA, lungs clear. ABO sent. AM meds given. Heparin infusing at 1400 units/hr. See worklist for VS/I and O and assessments.
--- NOTE | 2024-09-29 11:37 | CM ---
Chart reviewed. Patient is independent of ADLS, lives with his in a 1 STH, 1 YARY, 0 DME. Patient is being worked up for a CABG. Timing to TBD. Plan is for the patient to return home. CM to follow
[2024-09-29 11:52] LABS: Urine Albumin 1+ (Neg - Trace); Urine Bilirubin Negative (Negative); Urine Character Clear (Clear); Urine Color Yellow; Urine Glucose 4+ (Negative); Urine Ketone 2+ (Negative); Urine Leukocyte Negative (Negative); Urine Nitrite Negative (Negative); Urine Occult Blood Negative (Negative); Urine Urobilinogen Negative (Neg - 1+)
[2024-09-29 11:56] VITALS: BP 104/65
[2024-09-29 12:27] LABS: Urine Mucus Few
[2024-09-29 12:28] LABS: Urine Bacteria Few (Negative); Urine Red Blood Cell 0-2 /HPF (0-2); Urine White Cell 0-2 /HPF (0-5)
[2024-09-29 12:32] LABS: Glucose - Point of Care 140 mg/dl (70-99)
[2024-09-29 13:35] LABS: Glucose - Point of Care 131 mg/dl (70-99)
--- NOTE | 2024-09-29 14:08 | CM ---
Reviewed preoperative and postoperative instructions and restrictions, along with showering guidelines. Gave patient a Cardiac Surgery Book. Patient is agreeable to a home visit by CT Transitional RN. Plan is for the patient to return home with
CT Transitional RN.
[2024-09-29 14:25] LABS: APTT 75.7 Sec (23.4-35.0)
--- NOTE | 2024-09-29 15:01 | PTCARENOTE ---
pt sent for CT chest and ultrasound of carotids. Pt NSR with 1st degree HB and PAC's. Urine sent. Heparin remains at 1400 units/hr. Pt denies chest pain, denies sob.
[2024-09-29 15:22] VITALS: BP 119/65
--- NOTE | 2024-09-29 16:26 | W.PN.UPDATE ---
Update Note
Progress Note Update
STS RISK SCORE
Procedure Type:�Isolated CABG
Perioperative Outcome Estimate %
Operative Mortality 2.06%
Morbidity & Mortality 8.43%
Stroke 1.72%
Renal Failure 2.08%
Reoperation 2.93%
Prolonged Ventilation 3.95%
Deep Sternal Wound Infection 0.128%
Long Hospital Stay (>14 days) 6.32%
Short Hospital Stay (<6 days)* 40.7%
Clinical Summary
Planned Surgery: Isolated CABG, Urgent, First cardiovascular surgery
Demographics: 68 year old, male, 72.3kg, 178cm, BMI: 22.8 kg/m�
Lab Values: Creatinine: 1.3 mg/dL, Hematocrit: 36.1%, WBC Count: 8.5 10�/�L, Platelet Count: 276471 cells/�L
PreOp Medications: Oral diabetes control
Substance Abuse: Never smoker
Risk Factors / Comorbidities: Diabetes Mellitus , Hypertension
Cardiac Status: Acute heart failure, NYHA Class II, Ejection Fraction = 47%
Coronary Artery Disease: 3 vessels diseased, Proximal LAD Stenosis >=70%, Non-ST Elevation MN, MN: 1 to 7 Days
Valve Disease: Trivial/Trace AR, Mild MR, Mild TR
[2024-09-29 16:56] LABS: Glucose - Point of Care 183 mg/dl (70-99)
[2024-09-29] MEDS: NOVOLOG FLEXPEN-MODERATE RESISTANCE 1 UNITS SC (16:58)
--- NOTE | 2024-09-29 17:31 | W.PN.UPDATE ---
Update Note
Progress Note Update
Plan for surgery on , I will meet with Mr. Harvey Sunday to review and discuss.
--- NOTE | 2024-09-29 21:30 | PTCARENOTE ---
Received pt resting in bed, aaox3, family at bedside, pain free. NSR/SB on the monitor with 1st degree HB. Heparin infusing at 1400 units/hr. Pt ambulating in the room without issues, showered. Call matos within reach. POC ongoing.
[2024-09-29 22:44] VITALS: BP 110/65
[2024-09-29 22:47] LABS: Glucose - Point of Care 133 mg/dl (70-99)
[2024-09-30] VITALS (10 sets, daily range): BP systolic 95–130; BP diastolic 52–67; BMI 21.6
[2024-09-30 04:06] LABS: Hematocrit 33.3 % (39.0-52.0); Hemoglobin 11.6 g/dL (13.0-18.0); Mean Corp Hgb Conc. 34.8 g/dL (33.0-37.0); Mean Corpuscular Hgb 30.9 pg (27.0-31.0); Mean Corpuscular Volume 88.6 fL (80.0-94.0); Platelet Count 131 10^3/uL (130-400); Red Blood Cell Count 3.76 10^6/uL (4.70-6.10); Red Cell Dist. Width 13.1 % (11.5-14.5); White Blood Cell Count 7.9 10^3/uL (4.8-10.8)
--- NOTE | 2024-09-30 04:17 | PTCARENOTE ---
Pt with second degree Mobitz type 1 on am ecg 0327. Cardiac PA Ed Boatang made aware. Pt without complaint b/p /
[2024-09-30 04:32] LABS: ALT (SGPT) 24 U/L (0-50); AST (SGOT) 38 U/L (17-59); Albumin 3.4 g/dl (3.5-5.0); Alkaline Phosphatase 60 U/L (38-126); Blood Urea Nitrogen 36 mg/dl (9-20); Calcium 9.2 mg/dl (8.4-10.2); Carbon Dioxide 22 mmol/L (22-30); Chloride 106 mmol/L (98-107); Direct Bilirubin 0.2 mg/dl (0.0-0.4); Estimated Creatinine Clearance 52 ml/min; Glucose 131 mg/dl (70-99); Magnesium 1.9 mg/dl (1.6-2.3); Potassium 3.7 mmol/L (3.5-5.1); Sodium 138 mmol/L (135-145); Total Bilirubin 0.6 mg/dl (0.2-1.3); Total Protein 5.7 g/dl (6.3-8.2)
[2024-09-30 06:07] LABS: APTT 62.5 Sec (23.4-35.0)
--- NOTE | 2024-09-30 07:26 | W.PN.CT ---
Today's Communication / Plan
-
-Cont. current medical management per primary team
-Cont. current meds (ASA, Heparin gtt, Crestor)
-Placed BB on hold this AM as pt noted to be bradycardic (35 bpm) with AM EKG showing 2nd deg HB/Mobitz 1)
-Will replete K, 3.7
-Avoid RHIANNON-I/ARBs/CCB 48hrs prior to CABG
-Ongoing preop workup/medical optimization
-Tentatively on schedule for 10/02/[address] Alanis
-Will cont. to closely monitor
Assessment / Plan
-
Assessment:
-Severe 3v CAD including 50-60% distal LM
-NSTEMI (peak trop 26.8)
-Family history of CAD at the age of 73
-LVEF 45-50%
-No significant valvular disease
-Hypertension
-Hyperlipidemia
-T2DM (hgb A1C 8.0)
-Mild Parkinson's disease/essential tremors, not on chronic medication
-Melanoma
-Non-smoker
-S/p Right inguinal herniorrhaphy
-S/p Right lithotripsy
-S/p Left upper extremity melanoma resection
Discussed patient care with: Cardiology, Nursing, Respiratory Therapy, Pharmacy and Care Team
Subjective
-
Date of Service: September 30, 2024
No major issues overnight. Denies CP/SOB
Objective Data
-
Lab Results
09/30/24 03:40
09/30/24 03:49
PT 14.5 Sec (11.4-14.6) 09/28/24 08:53
INR 1.10 09/28/24 08:53
APTT 62.5 Sec (23.4-35.0) H 09/30/24 04:26
Vital Signs
Vital Signs
Temp Pulse Resp BP Pulse Ox
98.9 F 42 18 109/60 96
09/30/24 03:46 09/30/24 06:40 09/30/24 03:46 09/30/24 06:40 09/30/24 03:46
CT Intake/Output/Weight
09/29/24 09/30/24 09/30/24
18:59 06:59 18:59
Intake Total 1782 / 1782
Output Total 600 / 800 200 / 800
Balance 1182 / 982 -200 / 982
SaO2: 96 (RA)
Physical Exam
-
General: Awake, Oriented and AOx3
Cardiovascular: Regular rate & rhythm (bradycardia)
Respiratory: Clear
Extremities: No Edema
Data Reviewed
-
Lab Results: Results Reviewed
Medications: Active Meds Reviewed
Chest X-Ray: Report Reviewed and Image Reviewed
ECG: Report Reviewed and Image Reviewed
[2024-09-30 07:31] LABS: Glucose - Point of Care 132 mg/dl (70-99)
--- NOTE | 2024-09-30 08:22 | W.PN.UPDATE ---
Update Note
Progress Note Update
I saw and evaluated the patient. I reviewed the resident�s note and agree with findings and plan as documented in the resident�s note.
Denies CP/SOB.
Gen: NAD, AAOx3.
Eyes: EOMI, PERRLA, no scleral icterus.
Neck: supple.
CV: bob, reg rhythm, +S1/S2, no m/r/g.
Resp: CTAB anteriorly, no rales, wheezes, or rhonchi.
Abd: +BS, soft, NT, ND
Skin: No rashes.
Neuro: remains CN 2-12 intact, non-focal.
Psych: Normal mood and affect.
CXR: No acute disease of the chest.
Cardiac cath:
1. 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
2. Significantly elevated LVEDP at 22 mmHg.
Echo: EF 45-50%. Inferior wall is hypokinetic. Basal inferolateral akinesis. G1DD. Mild MR.
Acute NSTEMI:
-ECG (read by me): SR with sinus arrhythmia @ 64, TWi II, III, IVF, no acute ST changes
-cath/echo above
-CT surgery following, plan for CABG 10/02/24
-trop trending down
-cont heparin gtt
-cont ASA/statin
-BB stopped with bob/Mobitz I
Other problems:
Essential HTN: cont BB
DM2: a1c 8.0, SSI/accuchecks/Lantus
Parkinson's disease
FULL/Heparin gtt
--- NOTE | 2024-09-30 08:45 | W.PN.HOSP.TC ---
Today's Communication/Plan
-
- f/u cardiology and cardiothoracic surgery
- Hold required medications before surgery
- Monitor patients heart rate and vitals
Assessment / Plan
Assessment / Plan
NSTEMI status post catheterization day 1:
- Patient's vitals are stable, monitor on telemetry
- Cath report shows significant coronary artery disease involving the left main, LAD, mid circumflex and RCA, significantly elevated left ventricular diastolic pressure 22 mmHg
- Continue aspirin 81 for secondary prevention of cardiovascular events, hold 48 hours before surgery
- High intensity statin to reduce LDL and stabilize coronary plaques, hold 48 hours before surgery
- Heparin for DVT prophylaxis
- Nitroglycerin, Zofran as needed
-Echo shows left ventricular ejection fraction of 45-50%. Stage 1 diastolic dysfunction.
-Trend troponin (most recent troponin is 20.9 and trending down)
- Most recent EKG shows sinus rhythm with 2nd degree AV block, so beta harry held
- Cardiology is following
- Cardiovascular surgeon is planning for surgery on , will meet and dicuss with patient today
Essential hypertension:
-Blood pressures 105/68
- Hold amlodipine and RHIANNON inhibitor's for now, will restart once patient is stable after CABG
Cmf-tugjjds-dpgbosklp diabetes type 2:
- A1c of 8, patient needs tighter glucose control as he is now in secondary prevention category
- Jardiance and metformin are on hold for anticipated CABG, patient is on insulin for now
- glucose is 131 and well controlled
DVT prophylaxis heparin
Full code
Anticipated Discharge: 24 - 48 hours
Subjective/Interval History
-
Date of Service: September 30, 2024
No acute medical complaints.
Objective Data
-
Labs:
Laboratory Results
09/30/24 09/30/24 09/30/24
03:40 03:49 04:26
WBC 7.9
Hgb 11.6 L
Hct 33.3 L
Plt Count 131
APTT Cancelled 62.5 H
Sodium 138
Potassium 3.7
Chloride 106
Carbon Dioxide 22
BUN 36 H
Creatinine 1.3
Glucose 131 H
Calcium 9.2
Total Bilirubin 0.6
AST 38
ALT 24
Alkaline Phosphatase 60
09/30/24
12:30
WBC
Hgb
Hct
Plt Count
APTT Pending
Sodium
Potassium
Chloride
Carbon Dioxide
BUN
Creatinine
Glucose
Calcium
Total Bilirubin
AST
ALT
Alkaline Phosphatase
Vital Signs:
Vital Signs
Temp Pulse Resp BP Pulse Ox
98.5 F 42 20 109/60 96
09/30/24 07:30 09/30/24 06:40 09/30/24 07:30 09/30/24 06:40 09/30/24 07:34
I&O
09/29/24 09/30/24 10/01/24
06:59 06:59 06:59
Intake Total 324 / 324 1782 / 1782 408 / 408
Output Total 2845 / 2845 800 / 800 150 / 150
Balance -2521 / -2521 982 / 982 258 / 258
Review of Systems
-
History Source: Patient
All other systems: Reviewed and negative
Physical Exam
-
General: Well Developed
Respiratory: Clear to Auscultation
Cardiac: Regular Rhythm and S1/S2
GI: Soft, Nontender, Nondistended and Normal Bowel Sounds
Musculoskeletal: No Clubbing, No Cyanosis and No Edema
Skin: Warm and Dry
Neuro: Awake, Alert, Oriented, AO x 3 and Other (tremor in left hand )
Psych: Calm
Data Reviewed
-
Labs: Labs Reviewed by me and Discussed with Physician
[2024-09-30] MEDS: KCL 20 MEQ PO (09:12)
[2024-09-30] MEDS: COLACE 100 MG PO ×2 (09:13→21:52)
[2024-09-30] MEDS: LOW STRENGTH ASPIRIN 81 MG PO (09:13)
[2024-09-30] MEDS: NOVOLOG FLEXPEN-MODERATE RESISTANCE SC (09:13)
[2024-09-30] MEDS: LANTUS 0.1 UNITS SC (09:18)
--- NOTE | 2024-09-30 11:54 | W.PN.CARDCBS ---
Addendum entered and electronically signed by Reji Pérez MD 09/30/24 12:10:
I saw and examined the patient.
The Funeral Planning Counselor's note was reviewed and I agree with the note.
Comment: Briefly, 68-year-old man past medical history of hypertension, hyperlipidemia and hob-rlerdjn-lokaiwdas diabetes presents with substernal chest discomfort relieved with sublingual nitroglycerin. Troponin initally 20.2 and he was taken
urgently for cardiac catheterization as high risk NSTEMI which revealed multivessel CAD.
Resting comfortably in bed this morning, no further chest discomfort
Agree with aspirin and high intensity statin
Beta-harry on hold for bradycardia and 2nd degree AV block - CTM on tele
Given mildly reduced LVEF 45 to 50% plan for eventual RHIANNON/ARB
Tentative plan for surgical revascularization later this week
Rest per Augusta Myers
Original Note:
Today's Communication / Plan
-
Will review telemetry with EP. Holding beta-harry
Continue aspirin, statin, IV heparin
Tentatively planned for CABG 10/02/2024
Impression / Plan
-
Noe is a 68-year-old gentleman with past medical history of hypertension, hyperlipidemia, uta-fywrtta-onkarwjfo type 2 diabetes mellitus, mild Parkinson's disease not on chronic medications, non-smoker, prior hernia surgery, melanoma who
presented to ED 09/28/2024 with off-and-on substernal chest discomfort that started Sunday going into Sunday after using a rowing machine. He has newly started using the rowing machine for aerobic exercise and has used this 4 times over the last 3
weeks. He did his normal rowing on Sunday and later that day started appreciating some substernal chest discomfort that he was not sure was potentially related to gas pain given he also had a large [place] meal around similar timing. He then at
some point also noted very mild right jaw pain which made him concerned that it may be cardiac in nature and therefore he presented to the emergency room for evaluation. He received 2 sublingual nitroglycerin in the emergency room and became chest
pain-free he tells me. He has ongoing ' acid reflux' in his abdominal region which was concerning for the emergency room for ongoing cardiac pain and therefore patient was activated as a high risk NSTEMI. He was given full dose aspirin along with
unfractionated heparin and 2 sublingual nitro's in the emergency room. ECG showed sinus rhythm with Q waves inferiorly and posteriorly with nonspecific ST-T wave changes, not meeting STEMI criteria. Initial troponin I was elevated at 20.
No outpatient medical transcription
PCP: Anand Mercado
Impression:
NSTEMI
MV CAD by cath 09/28/24
ICM, EF 45-50% by echo 09/28/24
Hypertension
Hyperlipidemia
Fef-ftdrruy-nftynttzh type 2 diabetes mellitus
Mild Parkinson's disease, not on chronic medication
Melanoma
Non-smoker
Prior hernia repair
Retired
Family history of CAD at the age of 75
Left heart cath 09/28/2024:
Left main: 56% mid to distal disease
LAD: Proximal to mid LAD 7075% stenosis with distal LAD good bypass target, robust frty-yy-kyene collaterals
Left circumflex: Mid left circumflex 80 to 85% stenosis. Proximal OM1 diffuse 50 to 60% stenosis. Distal OM good bypass target.
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
ECHO 09/28/24: EF 45 to 50%, hypokinesis of inferior wall and basal inferolateral akinesis, mild septal hypertrophy, stage I diastolic dysfunction, mild MR
Plan:
- He presented with chest pain and ruled in for NSTEMI with peak troponin of 26.8. Cath on 09/28 showed multivessel CAD and is tentatively planned for CABG 10/02/2024
- He was started on Toprol 25mg daily, however on telemetry overnight noted to have Wenckebach as well as brief 2-1 AV block. Relatively asymptomatic. Heart rates remain in 40s.
- Will discuss with EP as with upcoming CABG, has indication for beta-harry moving forward.
- Continue IV heparin, aspirin, statin
- Echocardiogram with EF 45 to 50%
- Cr stable at 1.3
- K repleted
- CUS negative for significant carotid stenosis
- Prior to admission was on amlodipine 5 mg daily, benazepril 5 mg daily, Jardiance 10 mg daily, metformin 500 mg twice daily. Presently on hold with upcoming surgery
- Discussed with nursing. Discussed with CT surgery
Progress Note - Set Painter
Subjective
Date of Service: September 30, 2024
Reported some fatigue after walking. No chest pain
Objective
Labs:
09/30/24 03:40
09/30/24 03:49
Labs
Hgb 11.6 g/dL (13.0-18.0) L 09/30/24 03:40
Hct 33.3 % (39.0-52.0) L 09/30/24 03:40
Plt Count 131 10^3/uL (130-400) 09/30/24 03:40
PT 14.5 Sec (11.4-14.6) 09/28/24 08:53
INR 1.10 09/28/24 08:53
APTT 62.5 Sec (23.4-35.0) H 09/30/24 04:26
Sodium 138 mmol/L (135-145) 09/30/24 03:49
Potassium 3.7 mmol/L (3.5-5.1) 09/30/24 03:49
BUN 36 mg/dl (9-20) H 09/30/24 03:49
Creatinine 1.3 mg/dL (0.7-1.3) 09/30/24 03:49
Glucose 131 mg/dl (70-99) H 09/30/24 03:49
Troponins
09/28/24 09/28/24 09/28/24
04:36 08:15 08:53
Troponin I 20.200 H* Cancelled 25.000 H*
09/28/24 09/28/2409/28/25
11:18 14:18 14:22
Troponin I Cancelled Cancelled 26.000 H*
09/28/24 09/29/24
20:38 07:17
Troponin I 26.800 H* 20.900 H*
Vital Signs and I&O:
Vital Signs
Temp Pulse Resp BP Pulse Ox
98.6 F 44 16 100/54 100
09/30/24 11:21 09/30/24 09:45 09/30/24 11:21 09/30/24 07:27 09/30/24 11:21
Vital Signs
Temp Pulse Resp BP Pulse Ox
98.6 F 44 16 100/54 100
09/30/24 11:21 09/30/24 09:45 09/30/24 11:21 09/30/24 07:27 09/30/24 11:21
Intake & Output
09/28/24 09/29/24 09/30/24 10/01/24
07:59 07:59 07:59 07:59
Intake Total 324 / 324 2190 / 2190
Output Total 2845 / 2845 950 / 950 400 / 400
Balance -2521 / -2521 1240 / 1240 -400 / -400
Physical Exam
Physical Exam
GEN: No distress, awake, alert, oriented x3
HEENT: supple, anicteric, mmm, EOMI
LUNGS: CTA bilaterally, no wheezes/rales
CV: Reg and bradycardia, S1/S2, no murmur
ABD: soft, BS+, NT/ND
EXT: No cyanosis, clubbing, Edema
NEURO: Gross non-focal
SKIN: Warm, pink, dry. No rash. Right wrist site clean dry and intact, NTTP
--- NOTE | 2024-09-30 11:54 | CM ---
Chart reviewed. Patient is independent of ADLS, lives with his in a 1 STH, 1 YARY, 0 DME. Patient going for a CABG on 10/02. Plan is for the patient to return home with CT Transitional RN. CM to follow
[2024-09-30 12:33] LABS: Glucose - Point of Care 233 mg/dl (70-99)
--- NOTE | 2024-09-30 13:02 | PTCARENOTE ---
Discussed upcoming CT surgery w/ pt and his . Discussed CT surgery team will be in to discuss further questions. Will monitor.
[2024-09-30 13:11] LABS: APTT 68.3 Sec (23.4-35.0)
--- NOTE | 2024-09-30 13:25 | W.PN.UPDATE ---
Update Note
Progress Note Update
d/w EP. would plan for BB washout and continued observation of rhythm at this time. would recommend temp pacing wires be placed for this patient at time of CABG. will continue to monitor post op, however may need eventual PPM. d/w CT surgery
[2024-09-30] MEDS: NOVOLOG FLEXPEN-MODERATE RESISTANCE 3 UNITS SC (13:53)
[2024-09-30] MEDS: HEPARIN 25000 UNITS/250 ML IV (15:21)
--- NOTE | 2024-09-30 16:58 | W.PN.UPDATE ---
Update Note
Progress Note Update
Patient met with Dr. Alanis this afternoon. Consent obtained. Surgery is scheduled for October 02.
--- NOTE | 2024-09-30 17:00 | PTCARENOTE ---
Pt noted to be in second degree heart block, types 1 and 2. Pt also noted to be in 3rd degree heart block. Cardiology MD notified and evaluated pt. External defibrillation pads applied. Pt asymptomatic. VSS. Will monitor.
[2024-09-30 17:17] LABS: Glucose - Point of Care 178 mg/dl (70-99)
[2024-09-30] MEDS: NOVOLOG FLEXPEN-MODERATE RESISTANCE 1 UNITS SC (17:34)
--- NOTE | 2024-09-30 17:41 | W.PN.UPDATE ---
Update Note
Progress Note Update
Attending addendum: Nurse Anushka Upton brought me a telemetry strip from Mr. Harvey. He is now in intermittent complete heart block. I reviewed rhythm strips with Dr. Castrejon. We will keep him at bed rest and continue to monitor. No
immediate indication for transvenous pacing. Reviewed with CT surgery
[2024-09-30] MEDS: CRESTOR 40 MG PO (18:12)
--- NOTE | 2024-09-30 19:25 | PTCARENOTE ---
Assumed care of pt from prev nsg shift; Pt AAOx3 w/no c/o CP or SOB. Pt's VSS w/HR in the 50's & BP 115/61 this evening. Pt is SB w/2nd deg AVB, Mobitz type 1 on telemetry monitoring. MD's are aware. Pt is on bedrest per cardiology & pt has
defib/pacer pads in place. Pt w/R radial site CHRISTIN w/no signs or symptoms of bleeding or hematoma. Pt w/IV Heparin drip infusing as ordered through a patent IV line. Pt w/call matos within reach & plan of care ongoing w/no addtl needs at this time.
[2024-09-30 20:21] LABS: APTT 98.5 Sec (23.4-35.0)
[2024-09-30] MEDS: MAALOX 30 ML PO (21:52)
[2024-09-30 22:50] LABS: Glucose - Point of Care 204 mg/dl (70-99)
[2024-10-01] VITALS (7 sets, daily range): BP systolic 103–141; BP diastolic 61–73; BMI 21.7
[2024-10-01] MEDS: MYLICON 80 MG PO ×2 (02:16→14:24)
[2024-10-01 02:59] LABS: APTT 104.4 Sec (23.4-35.0)
[2024-10-01 03:26] LABS: ALT (SGPT) 31 U/L (0-50); AST (SGOT) 32 U/L (17-59); Albumin 3.5 g/dl (3.5-5.0); Alkaline Phosphatase 67 U/L (38-126); Blood Urea Nitrogen 39 mg/dl (9-20); Calcium 9.1 mg/dl (8.4-10.2); Carbon Dioxide 21 mmol/L (22-30); Chloride 108 mmol/L (98-107); Direct Bilirubin 0.3 mg/dl (0.0-0.4); Estimated Creatinine Clearance 52 ml/min; Glucose 147 mg/dl (70-99); Magnesium 2.1 mg/dl (1.6-2.3); Sodium 138 mmol/L (135-145); Total Bilirubin 0.6 mg/dl (0.2-1.3); Total Protein 5.9 g/dl (6.3-8.2)
[2024-10-01] MEDS: HEPARIN 25000 UNITS/250 ML IV ×2 (05:32→20:20)
--- NOTE | 2024-10-01 06:32 | W.PN.CT ---
Today's Communication / Plan
-
-Cont. current medical management per primary team
-Cont. current meds (ASA, Heparin gtt, Crestor)
-Placed BB on hold given EKG changes of bradycardia/2nd deg AVB (Mobitz 1), and CHB
-Currently appears to be 1st deg HB with markedly prolonged VT interval
-Avoid RHIANNON-I/ARBs/CCB 48hrs prior to CABG
-Ongoing preop workup/medical optimization
-For CABG +/- SANTOSH clip by Dr. Alanis tomorrow 10/02/24
-Will cont. to closely monitor
Assessment / Plan
-
Assessment:
-Severe 3v CAD including 50-60% distal LM
-NSTEMI (peak trop 26.8)
-Family history of CAD at the age of 73
-LVEF 45-50%
-No significant valvular disease
-Hypertension
-Hyperlipidemia
-T2DM (hgb A1C 8.0)
-Mild Parkinson's disease/essential tremors, not on chronic medication
-Melanoma
-Non-smoker
-Preop bradycardia, Mobitz 1, CHB
-S/p Right inguinal herniorrhaphy
-S/p Right lithotripsy
-S/p Left upper extremity melanoma resection
Discussed patient care with: Cardiology, Nursing, Pharmacy and Care Team
Subjective
-
Date of Service: October 01, 2024
No issues overnight. Denies CP/SOB
Objective Data
-
Lab Results
09/30/24 03:40
10/01/24 02:31
PT 14.5 Sec (11.4-14.6) 09/28/24 08:53
INR 1.10 09/28/24 08:53
APTT 104.4 Sec (23.4-35.0) H 10/01/24 02:31
Vital Signs
Vital Signs
Temp Pulse Resp BP Pulse Ox
97.8 F 56 18 113/73 98
10/01/24 04:19 10/01/24 03:00 10/01/24 04:19 10/01/24 02:19 10/01/24 04:19
CT Intake/Output/Weight
09/30/24 09/30/24 10/01/24
06:59 18:59 06:59
Intake Total 1255 / 2415 1160 / 2415
Output Total 200 / 800 1350 / 2250 900 / 2250
Balance -200 / 982 -95 / 165 260 / 165
SaO2: 98 (RA)
Physical Exam
-
General: Awake, Oriented and AOx3
Cardiovascular: Regular rate & rhythm and No Murmurs
Respiratory: Clear
Extremities: No Edema
Data Reviewed
-
Lab Results: Results Reviewed
Medications: Active Meds Reviewed
Chest X-Ray: Report Reviewed and Image Reviewed
ECG: Report Reviewed and Image Reviewed
[2024-10-01 07:57] LABS: Glucose - Point of Care 127 mg/dl (70-99)
[2024-10-01 08:22] LABS: Hematocrit 37.3 % (39.0-52.0); Mean Corp Hgb Conc. 34.9 g/dL (33.0-37.0); Mean Corpuscular Hgb 31.2 pg (27.0-31.0); Mean Corpuscular Volume 89.4 fL (80.0-94.0); Mean Platelet Volume 11.7 fL (7.4-10.4); Platelet Count 154 10^3/uL (130-400); Red Blood Cell Count 4.17 10^6/uL (4.70-6.10); Red Cell Dist. Width 13.2 % (11.5-14.5); White Blood Cell Count 7.1 10^3/uL (4.8-10.8)
--- NOTE | 2024-10-01 09:03 | W.PN.UPDATE ---
Update Note
Progress Note Update
I saw and evaluated the patient. I reviewed the resident�s note and agree with findings and plan as documented in the resident�s note.
Denies CP/SOB.
Gen: NAD, AAOx3.
Eyes: EOMI, PERRLA, no scleral icterus.
Neck: supple.
CV: RRR, +S1/S2, no m/r/g.
Resp: remains CTAB anteriorly, no rales, wheezes, or rhonchi.
Abd: +BS, soft, NT, ND
Skin: No rashes.
Neuro: continues to remains CN 2-12 intact, non-focal.
Psych: Normal mood and affect.
CXR: No acute disease of the chest.
Cardiac cath:
1. 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
2. Significantly elevated LVEDP at 22 mmHg.
Echo: EF 45-50%. Inferior wall is hypokinetic. Basal inferolateral akinesis. G1DD. Mild MR.
Acute NSTEMI:
-ECG (read by me): SR with sinus arrhythmia @ 64, TWi II, III, IVF, no acute ST changes
-cath/echo above
-CT surgery following, plan for CABG +/- SANTOSH clip by Dr. Alanis 10/02/24
-trop trending down
-cont heparin gtt
-cont ASA/statin
-BB stopped with bob/Mobitz I/CHB. Note, pt had tele strip with CHB 09/30/24PM. As per Dr. Stout no indication for TVP at this moment. Zol pads in place.
-discussed with Dr. Pérez
Other problems:
Essential HTN: cont BB
DM2: a1c 8.0, SSI/accuchecks/Lantus
Parkinson's disease
FULL/Heparin gtt
Total time spent on today's encounter was 50 minutes which included time spent in counseling the patient/family regarding diagnosis and treatment plan as listed above, goals of care, and symptom management. Case was discussed with nursing staff,
specialists, and care coordinators/case management. All labs and imaging personally reviewed by me. Remainder the time spent in detailed review of previous records, lab data, imaging, and other medical provider documentation.
[2024-10-01] MEDS: NOVOLOG FLEXPEN-MODERATE RESISTANCE SC (09:33)
[2024-10-01] MEDS: LOW STRENGTH ASPIRIN 81 MG PO (09:34)
[2024-10-01] MEDS: COLACE 100 MG PO ×2 (09:34→20:20)
[2024-10-01] MEDS: LANTUS 0.1 UNITS SC (09:36)
--- NOTE | 2024-10-01 10:50 | W.PN.HOSP.TC ---
Today's Communication/Plan
-
- f/u cardiothoracic surgery
Assessment / Plan
Assessment / Plan
NSTEMI status post catheterization day 1:
- Patient's vitals are stable, monitor on telemetry
- Cath report shows significant coronary artery disease involving the left main, LAD, mid circumflex and RCA, significantly elevated left ventricular diastolic pressure 22 mmHg
- Continue aspirin 81 for secondary prevention of cardiovascular events, hold 48 hours before surgery
- High intensity statin to reduce LDL and stabilize coronary plaques, hold 48 hours before surgery
- Heparin for DVT prophylaxis
- Nitroglycerin, Zofran as needed
-Echo shows left ventricular ejection fraction of 45-50%. Stage 1 diastolic dysfunction.
-Trend troponin (most recent troponin is 20.9 and trending down)
- Most recent EKG shows sinus rhythm with 2nd degree AV block, so beta harry held
- Cardiology is following
- Cardiovascular surgeon is planning for surgery on October 02 CABG
Essential hypertension:
-Blood pressures 103/72 and well controlled
-Hold amlodipine and RHIANNON inhibitor's for now, will restart once patient is stable after CABG
Yer-kldxryd-jvxffllfu diabetes type 2:
- A1c of 8, patient needs tighter glucose control as he is now in secondary prevention category
- Jardiance and metformin are on hold for anticipated CABG, patient is on insulin for now
- glucose is 131 and well controlled
DVT prophylaxis heparin
Full code
Anticipated Discharge: 24 - 48 hours
Subjective/Interval History
-
Date of Service: October 01, 2024
patient has no acute medical complaints.
Objective Data
-
Labs:
Laboratory Results
10/01/24 10/01/24
02:31 08:14
WBC 7.1
Hgb 13.0
Hct 37.3 L
Plt Count 154
APTT 104.4 H
Sodium 138
Potassium 4.0
Chloride 108 H
Carbon Dioxide 21 L
BUN 39 H
Creatinine 1.3
Glucose 147 H
Calcium 9.1
Total Bilirubin 0.6
AST 32
ALT 31
Alkaline Phosphatase 67
Vital Signs:
Vital Signs
Temp Pulse Resp BP Pulse Ox
98.6 F 54 20 103/72 98
10/01/24 06:51 10/01/24 07:45 10/01/24 06:51 10/01/24 06:50 10/01/24 09:27
I&O
09/30/24 10/01/24 10/02/24
06:59 06:59 06:59
Intake Total 1782 / 1782 2415 / 2415
Output Total 800 / 800 2250 / 2250
Balance 982 / 982 165 / 165
Review of Systems
-
History Source: Patient
All other systems: Reviewed and negative
Physical Exam
-
General: Well Developed
Respiratory: Clear to Auscultation
Cardiac: Regular Rhythm and S1/S2
GI: Soft, Nontender, Nondistended and Normal Bowel Sounds
Musculoskeletal: No Clubbing, No Cyanosis and No Edema
Skin: Warm and Dry
Neuro: Awake, Alert, Oriented, AO x 3 and Other (tremor in left hand )
Psych: Calm
Data Reviewed
-
Labs: Labs Reviewed by me and Discussed with Physician
--- NOTE | 2024-10-01 10:50 | W.PN.CARDCBS ---
Addendum entered and electronically signed by Reji Pérez MD 10/01/24 12:42:
I saw and examined the patient.
The Metal Drawer's note was reviewed and I agree with the note.
Comment: Briefly, 68-year-old man past medical history of hypertension, hyperlipidemia and lta-hhpudwf-qkgsluvyi diabetes presents with substernal chest discomfort relieved with sublingual nitroglycerin. Troponin initally 20.2 and he was taken
urgently for cardiac catheterization as high risk NSTEMI which revealed multivessel CAD.
Noted to have 2:1 AV block earlier this hospitalization, but last evening developed transient complete heart block
Was conducting one-to-one in sinus rhythm this morning at the time of my evaluation and resting comfortably in bed with no cardiac complaints
Discussed with EP
Continue to hold beta-harry
Monitor on telemetry
Temporary pacemaker wire placement at the time of surgery and hopefully AV block will resolve with revascularization
Cont aspirin and high intensity statin
Given mildly reduced LVEF 45 to 50% plan for eventual RHIANNON/ARB
Tentative surgical revascularization later this week
Rest per Augusta Myers
Original Note:
Today's Communication / Plan
-
follow rhythm
planned for CABG in AM
Impression / Plan
-
Noe is a 68-year-old gentleman with past medical history of hypertension, hyperlipidemia, jth-wghxfsl-wzgqekgmx type 2 diabetes mellitus, mild Parkinson's disease not on chronic medications, non-smoker, prior hernia surgery, melanoma who
presented to ED 09/28/2024 with off-and-on substernal chest discomfort that started Sunday going into Sunday after using a rowing machine. He has newly started using the rowing machine for aerobic exercise and has used this 4 times over the last 3
weeks. He did his normal rowing on Sunday and later that day started appreciating some substernal chest discomfort that he was not sure was potentially related to gas pain given he also had a large English meal around similar timing. He then at
some point also noted very mild right jaw pain which made him concerned that it may be cardiac in nature and therefore he presented to the emergency room for evaluation. He received 2 sublingual nitroglycerin in the emergency room and became chest
pain-free he tells me. He has ongoing ' acid reflux' in his abdominal region which was concerning for the emergency room for ongoing cardiac pain and therefore patient was activated as a high risk NSTEMI. He was given full dose aspirin along with
unfractionated heparin and 2 sublingual nitro's in the emergency room. ECG showed sinus rhythm with Q waves inferiorly and posteriorly with nonspecific ST-T wave changes, not meeting STEMI criteria. Initial troponin I was elevated at 20.
No outpatient supervisor burling and joining
PCP: Anand Mercado
Impression:
NSTEMI
MV CAD by cath 09/28/24
ICM, EF 45-50% by echo 09/28/24
Hypertension
Hyperlipidemia
Sxp-ewjepcn-pjcqcnsed type 2 diabetes mellitus
Mild Parkinson's disease, not on chronic medication
Melanoma
Non-smoker
Prior hernia repair
Retired
Family history of CAD at the age of 75
Left heart cath 09/28/2024:
Left main: 56% mid to distal disease
LAD: Proximal to mid LAD 7075% stenosis with distal LAD good bypass target, robust xsqo-tz-kcjlx collaterals
Left circumflex: Mid left circumflex 80 to 85% stenosis. Proximal OM1 diffuse 50 to 60% stenosis. Distal OM good bypass target.
RCA: 100% proximal RCA PROVIDER RELATIONS COORDINATOR with robust xwsa-mn-gtkkz collaterals
ECHO 09/28/24: EF 45 to 50%, hypokinesis of inferior wall and basal inferolateral akinesis, mild septal hypertrophy, stage I diastolic dysfunction, mild MR
Plan:
- He presented with chest pain and ruled in for NSTEMI with peak troponin of 26.8. Cath on 09/28 showed multivessel CAD and is tentatively planned for CABG 10/02/2024
- He was started on Toprol 25mg daily, however on telemetry was then noted to have Wenckebach as well as brief 2-1 AV block, asymptomatic. remains with occasional episodes however overall burden decreasing, HRs currently in 80s.
- will need to follow rhythm closely post op. requested CT surgery place temp pacing wires at time of procedure 10/02 and may require permanent pacemaker. he has indication for BB moving forward.
- Continue IV heparin, aspirin, statin
- Echocardiogram with EF 45 to 50%
- Cr stable at 1.3
- CUS negative for significant carotid stenosis
- Prior to admission was on amlodipine 5 mg daily, benazepril 5 mg daily
- he expressed concern that his sugars are higher than preadmission. we discussed that OP Jardiance 10 mg daily and metformin 500 mg twice daily and presently on hold. follow sugars. continue ssi
- Discussed with nursing
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
Subjective
Date of Service: October 01, 2024
no issues overnight. no lightheadedness or dizziness
Objective
Labs:
10/01/24 08:14
10/01/24 02:31
Labs
Hgb 13.0 g/dL (13.0-18.0) 10/01/24 08:14
Hct 37.3 % (39.0-52.0) L 10/01/24 08:14
Plt Count 154 10^3/uL (130-400) 10/01/24 08:14
PT 14.5 Sec (11.4-14.6) 09/28/24 08:53
INR 1.10 09/28/24 08:53
APTT 104.4 Sec (23.4-35.0) H 10/01/24 02:31
Sodium 138 mmol/L (135-145) 10/01/24 02:31
Potassium 4.0 mmol/L (3.5-5.1) 10/01/24 02:31
BUN 39 mg/dl (9-20) H 10/01/24 02:31
Creatinine 1.3 mg/dL (0.7-1.3) 10/01/24 02:31
Glucose 147 mg/dl (70-99) H 10/01/24 02:31
Troponins
09/28/24 09/28/24 09/28/24
08:15 14:22 20:38
Troponin I Cancelled 26.000 H* 26.800 H*
09/29/24
07:17
Troponin I 20.900 H*
Vital Signs and I&O:
Vital Signs
Temp Pulse Resp BP Pulse Ox
98.6 F 54 20 103/72 98
10/01/24 06:51 10/01/24 07:45 10/01/24 06:51 10/01/24 06:50 10/01/24 09:27
Vital Signs
Temp Pulse Resp BP Pulse Ox
98.6 F 54 20 103/72 98
10/01/24 06:51 10/01/24 07:45 10/01/24 06:51 10/01/24 06:50 10/01/24 09:27
Intake & Output
09/29/24 09/30/24 10/01/24 10/02/24
07:59 07:59 07:59 07:59
Intake Total 324 / 324 2190 / 2190 2006
Output Total 2845 / 2845 950 / 950 2099 / 2099
Balance -2521 / -2521 1240 / 1240 -93 / -93
Physical Exam
Physical Exam
GEN: No distress, awake, alert, oriented x3
HEENT: supple, anicteric, mmm, EOMI
LUNGS: CTA bilaterally, no wheezes/rales
CV: Reg, S1/S2, no murmur
ABD: soft, BS+, NT/ND
EXT: No cyanosis, clubbing, Edema
NEURO: Gross non-focal
SKIN: Warm, pink, dry. No rash.
--- NOTE | 2024-10-01 11:24 | CM ---
Chart reviewed. Patient is going for a CABG 10/02. Patient is independent of ADLS, lives with his in a 1 STH, 1 YARY, 0 DME. Plan is for the patient to return home with CT Transitional RN. CM to follow
[2024-10-01 12:06] LABS: Glucose - Point of Care 240 mg/dl (70-99)
[2024-10-01] MEDS: NOVOLOG FLEXPEN-MODERATE RESISTANCE 3 UNITS SC (12:55)
[2024-10-01 16:47] LABS: Glucose - Point of Care 258 mg/dl (70-99)
[2024-10-01] MEDS: CRESTOR 40 MG PO (17:57)
[2024-10-01] MEDS: NOVOLOG FLEXPEN-MODERATE RESISTANCE 5 UNITS SC (17:57)
--- NOTE | 2024-10-01 19:38 | PTCARENOTE ---
Pt maintained bedrest today, OOB to commode once. Telemetry shows second degree type one heart block with rates as low as 27-60. He is asymptomatic, Augusta Myers NP aware. Simethicone given once for 'gas' and anxiety with good effect. Heparin
infusion at a therapeutic level. Plan for CVOR prep tonight.
--- NOTE | 2024-10-01 19:58 | W.PN.UPDATE ---
Update Note
Progress Note Update
-preop B-harry is contraindicated d/t complete heart block
[2024-10-01 22:10] LABS: Glucose - Point of Care 137 mg/dl (70-99)
[2024-10-01] MEDS: XANAX 0.25 MG PO (23:05)
--- NOTE | 2024-10-01 23:15 | PTCARENOTE ---
Assumed care of pt from prev nsg shift at 191; Pt AAOx3 w/no c/o CP or SOB. Pt's VSS w/HR in the 40's-50's & BP 128/61 this evening. Pt is SB w/2nd deg AVB, Mobitz type 1 on telemetry monitoring-MD's are aware. 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
symptoms of bleeding or hematoma. Pt w/IV Heparin drip infusing as ordered through a patent IV line.
At 2200, pt shaved & complete bed bath done for CT surgery in the AM. Pt OOB briefly for linens to be changed & CHG bath then completed in the chair. CT Surgery PA in to see pt. Pt ordered a one time dose of PO Xanax tonight for anxiety pre-surgery.
Administered as ordered. Pt w/call matos within reach & plan of care ongoing w/no addtl needs at this time.
[2024-10-02] VITALS (35 sets, daily range): BP systolic 72–129; BP diastolic 24–90; BMI 21.4
[2024-10-02 05:09] LABS: Glucose - Point of Care 127 mg/dl (70-99)
[2024-10-02 05:38] LABS: APTT 123.6 Sec (23.4-35.0)
[2024-10-02 05:39] LABS: Hematocrit 37.9 % (39.0-52.0); Hemoglobin 13.1 g/dL (13.0-18.0); Mean Corp Hgb Conc. 34.6 g/dL (33.0-37.0); Mean Corpuscular Volume 89.6 fL (80.0-94.0); Mean Platelet Volume 12.5 fL (7.4-10.4); Platelet Count 165 10^3/uL (130-400); Red Blood Cell Count 4.23 10^6/uL (4.70-6.10); Red Cell Dist. Width 13.1 % (11.5-14.5); White Blood Cell Count 6.3 10^3/uL (4.8-10.8)
[2024-10-02] MEDS: PROTONIX 40 MG PO (05:57)
[2024-10-02] MEDS: MAGNESIUM OXIDE 500 MG PO (05:57)
[2024-10-02] MEDS: BACTROBAN 2% OINTMENT 1 APPLIC NASAL ×2 (05:57→20:07)
--- NOTE | 2024-10-02 06:10 | W.CVOR.SURPR ---
CVOR Surgeon Immed Pre Op
-
I have examined this patient prior to performance of the scheduled procedure.
The patient's condition is unchanged from the time of the dictated/written History and
Physical and the patient is able to undergo the scheduled procedure.
CABG + SANTOSH Clip
[2024-10-02 06:19] LABS: Blood Urea Nitrogen 31 mg/dl (9-20); Calcium 9.3 mg/dl (8.4-10.2); Carbon Dioxide 25 mmol/L (22-30); Chloride 106 mmol/L (98-107); Estimated Creatinine Clearance 55 ml/min; Glucose 132 mg/dl (70-99); Potassium 4.4 mmol/L (3.5-5.1); Sodium 140 mmol/L (135-145); eGFR > 60.00
--- NOTE | 2024-10-02 07:18 | PTCARENOTE ---
2nd complete CHG bed bath completed for pt & pt transferred to CV bed w/new linens; CHG wipes completed. Pt's in to see him at 0600. Pt's IV Heparin placed on hold at 0630 when pt called to OR. Pt transported in bed to CVOR at 0630 with chart &
IV Ancef x2 doses as ordered. Pt's belongings incl cell phone & glasses transferred to room 8747.
[2024-10-02 07:39] LABS: ACT+ - POC 109 Seconds (82-134)
[2024-10-02 07:48] LABS: Urine Albumin Negative (Neg - Trace); Urine Bilirubin Negative (Negative); Urine Character Clear (Clear); Urine Color Yellow; Urine Glucose 4+ (Negative); Urine Ketone 1+ (Negative); Urine Leukocyte Negative (Negative); Urine Nitrite Negative (Negative); Urine Occult Blood Negative (Negative); Urine Specific Gravity 1.015 (<1.030); Urine Urobilinogen Negative (Neg - 1+)
--- NOTE | 2024-10-02 08:46 | CM ---
CM following for DC planning needs.
Pt. in OR today for CT Surgery.
Reviewed initial assessment. Pt. resides w/ spouse in a private, 1 STH w/ YARY. Functionally, patient is indep. w/ ADLs, mobility without the use of any assisted device.
Antic. DC to home w/ CT Transitional Care RN.
Will follow closely.
[2024-10-02 09:02] LABS: ACT+ - POC 402 Seconds (82-134)
[2024-10-02 09:11] LABS: ACT+ - POC 467 Seconds (82-134)
[2024-10-02 09:25] LABS: B.E. - POC -4.7 mmol/L; Glucose - POC 238 mg/dl (70-99); HCO3 - POC 21 mmol/L (21-28); Hematocrit - POC 34 % PCV (42-52); Hemodilution- POC No; Hemoglobin Calculated - POC 11.5; Ionized Calcium - POC 1.21 mmol/L (1.15-1.33); Lactate - POC 0.31 mmol/L (0.36-0.75); O2 Saturation %Calculated-POC 99.8 % (94-98); PCO2 - POC 41 mmHg (35-48); PO2 - POC 265 mmHg (83-108); Potassium - POC 4.2 mmol/L (3.5-5.1); Sodium - POC 141 mmol/L (136-145); Specimen Type - POC Arterial; pH - POC 7.32 (7.35-7.45)
[2024-10-02 09:35] LABS: ACT+ - POC 409 Seconds (82-134)
[2024-10-02 10:00] LABS: ACT+ - POC 424 Seconds (82-134)
[2024-10-02 10:05] LABS: B.E. - POC -0.9 mmol/L; Glucose - POC 209 mg/dl (70-99); HCO3 - POC 23 mmol/L (21-28); Hematocrit - POC 29 % PCV (42-52); Hemodilution- POC Yes; Ionized Calcium - POC 1.02 mmol/L (1.15-1.33); Lactate - POC < 0.30 mmol/L (0.36-0.75); O2 Saturation %Calculated-POC 99.9 % (94-98); PCO2 - POC 36 mmHg (35-48); PO2 - POC 350 mmHg (83-108); Potassium - POC 5.1 mmol/L (3.5-5.1); Sodium - POC 138 mmol/L (136-145); Specimen Type - POC Arterial; pH - POC 7.42 (7.35-7.45)
[2024-10-02 10:05] LABS: B.E. - POC -2.5 mmol/L; Glucose - POC 151 mg/dl (70-99); HCO3 - POC 21 mmol/L (21-28); Hematocrit - POC 36 % PCV (42-52); Hemodilution- POC No; Hemoglobin Calculated - POC 12.2; Ionized Calcium - POC 1.24 mmol/L (1.15-1.33); Lactate - POC < 0.30 mmol/L (0.36-0.75); O2 Saturation %Calculated-POC 99.9 % (94-98); PCO2 - POC 31 mmHg (35-48); PO2 - POC 321 mmHg (83-108); Potassium - POC 3.9 mmol/L (3.5-5.1); Sodium - POC 143 mmol/L (136-145); Specimen Type - POC Arterial; pH - POC 7.44 (7.35-7.45)
[2024-10-02 10:37] LABS: B.E. - POC -1.3 mmol/L; Glucose - POC 176 mg/dl (70-99); HCO3 - POC 24 mmol/L (21-28); Hematocrit - POC 32 % PCV (42-52); Hemodilution- POC Yes; Hemoglobin Calculated - POC 10.9; Lactate - POC 0.96 mmol/L (0.36-0.75); O2 Saturation %Calculated-POC 99.8 % (94-98); PCO2 - POC 41 mmHg (35-48); PO2 - POC 244 mmHg (83-108); Potassium - POC 4.3 mmol/L (3.5-5.1); Sodium - POC 140 mmol/L (136-145); Specimen Type - POC Arterial; pH - POC 7.37 (7.35-7.45)
[2024-10-02 10:43] LABS: ACT+ - POC 126 Seconds (82-134)
[2024-10-02 10:47] LABS: B.E. - POC -2.4 mmol/L; Glucose - POC 149 mg/dl (70-99); HCO3 - POC 22 mmol/L (21-28); Hematocrit - POC 30 % PCV (42-52); Hemodilution- POC Yes; Hemoglobin Calculated - POC 10.3; Ionized Calcium - POC 1.34 mmol/L (1.15-1.33); Lactate - POC 1.13 mmol/L (0.36-0.75); O2 Saturation %Calculated-POC 99.9 % (94-98); PCO2 - POC 36 mmHg (35-48); PO2 - POC 284 mmHg (83-108); Potassium - POC 3.9 mmol/L (3.5-5.1); Sodium - POC 142 mmol/L (136-145); Specimen Type - POC Arterial
[2024-10-02] MEDS: NOVOLOG FLEXPEN SC ×2 (11:12→17:52)
[2024-10-02] MEDS: NEURONTIN PO (11:12)
--- NOTE | 2024-10-02 11:12 | W.PN.CT.SURG ---
CT Surgery Operative Note
-
CARDIAC SURGERY OPERATIVE REPORT
Preoperative Diagnosis: Multivessel Coronary Artery Disease with NSTEMI and complete heart block
Postoperative Diagnosis: Same, status postcardiac arrest requiring CPR and emergent pericardiotomy with placement of temporary V wire
Procedure(s) Performed:
1. Standard sternotomy with aortic and right atrial cannulation
2. Internal mammary artery harvesting, left, skeletonized
3. Multi arterial coronary artery bypass grafting x 3 (In situ ROE to LAD, Ao to left radial to OM, Ao to RSVG to RPDA)
4. Open chest cardiopulmonary resuscitation with emergent placement of temporary ventricular pacing wire for asystole
5. Endoscopic vein harvesting of right lower extremity and endoscopic left radial artery harvesting
6. Placement of temporary atrial ventricular pacing wires
7. Transesophageal echocardiography
8. Left atrial appendage exclusion [35 mm device, serial #[id number]]
Date of Surgery: 10/02/2024
Comorbidities:
1. NSTEMI with multivessel coronary artery disease
2. Complete heart block
3. Hypertension
4. Parkinson's disease
5. Diabetes mellitus
6. Cardiovascular collapse secondary to asystole
Attending Surgeon: Aron Alanis MD, MS
Assistants: Dixie Tracy PA-C (present and necessary to faculty i on call medical assistant, endoscopic left radial artery harvest, retraction, suction, exposure, suture management, and wound closure under my direction) & Aron Izquierdo PA-C (endo vein harvest)
Anesthesiology: Satish Pires MD and Christin Rock CRNA
Scrub and Circulating RNs: Narcisa Iglesias, GEMMA, Mehran Moraes RN
Butcher Helper: Meryl Feldman CCP
Anesthesia: GETA
EBL: per perfusion records
Products: None
CPB Time: 74 minutes
Aortic Cross Clamp Time: 65 minutes
Indication(s) for Procedures: This is a 68-year-old male who ruled in for an NSTEMI was found to have multivessel coronary disease and was a diabetic. He was also having arrhythmia issues that were new for him. Surgery was offered given his age
and disease pattern, I opted to use the radial graft to the OM. Given his arrhythmias, multidisciplinary team discussion was had preoperatively and the patient was aware that he may very likely need a pacemaker before discharge home.
Conduit(s) Quality:
ROE -excellent/good flow uniform without dissection
RSVG -good/small caliber in size with minimal varicosities but overall decent quality target
Left radial artery excellent /despite being smaller caliber in size it had decent tissue quality and was robust, this was grafted directly off of the aorta
Target(s) Quality:
RCA/PDA -excellent/large caliber vessel, good flow with test dosing of antegrade and biphasic signal on Doppler assessment
OM -excellent/good quality/target, the radial was grafted here with an 8-0 Prolene in secure with a micro core knot could flow with test dosing antegrade using the aid of an Angiocath
LAD -excellent/good quality distal target, the ROE here was grafted with 8-0 Prolene and secured with a micro core knot, there is good visual flow in the LAD territory upon release of the bulldog clamp and good biphasic signals on ultrasound
Findings: His left ventricular ejection fraction preoperatively was 55% although appeared very dyskinetic as he was in a junctional type rhythm. While harvesting the ROE, he went asystolic and required approximately 1 minute of cardiopulmonary
resuscitation. At this point we fully heparinized and open the pericardium and placed a temporary ventricular pacing wire in order to physically pacing. This was able to work and he regained vital signs. Following surgery his EF appeared to be
normal at 60% with no specific regional wall motion abnormalities. The ROE was harvested in a skeletonized fashion. Following bypass grafting, test dose cardioplegia was given down each distal and confirmed patency and hemostasis. All grafts had
excellent biphasic signals including the case. His left atrial appendage was verified to be free of any thrombus or debris preoperatively and given his history of proximal disease and arrhythmias and propensity for developing atrial fibrillation, I
felt it was medically necessary in order to ligate his left atrial appendage as he would possibly be intolerant of anticoagulation.
Description of Procedure: The patient was taken to the operating room. Their identity and procedure to be performed were verified and they were positioned supine on the operating table. Induction via general anesthesia with endotracheal intubation
was performed and central venous access and arterial monitoring were inserted. A preoperative transesophageal echocardiogram was performed to assess cardiac function and valvular function. The patient was then prepped and draped from chin to feet in
a sterile fashion. A preoperative time-out was performed with all members of the team present. A midline chest incision was performed along with median sternotomy. Simultaneous endoscopic access of the right lower extremity for saphenous vein
harvest and left radial endoscopic harvest was obtained along with administration of an initial 5,000 units of IV heparin. A RulTract sternal retractor was positioned to exposure the left internal mammary bed. While harvesting, he went asystolic
and had cardiovascular collapse. The Rultract was removed and I performed CPR with chest compressions while we were performing transcutaneous pacing. I then placed a median sternotomy retractor to open the pericardium and place a temporary
ventricular pacing wire at the base of the right ventricle. This allowed us to capture at 70 bpm and at that point he regained vital signs. The Rultract was then replaced I continued harvesting the mammary in usual fashion. The mammary was
harvested and found to have good flow. A bulldog clamp was applied to the distal end of the mammary after dividing it. It was wrapped in a papaverine soaked RayTec and replaced back into the left hemithorax. The RulTract was exchanged for a median
sternal retractor. The innominate vein was isolated. Full heparinization was given (a total of 65,000 units). I then continued to create a pericardial well. The aortic cannulation site was chosen where it was soft, pliable, and free of calcium.
Cannulation was performed with an arterial cannula in the ascending aorta and a triple-stage venous cannula through the right atrial appendage. The arterial cannula line had an appropriate bounce and correlating pressures with test dosing. Next, a
root vent/antegrade cannula was inserted into the ascending aorta. The ACT was confirmed to be over 400 and retrograde autologous priming was performed before commencing cardiopulmonary bypass. The pulmonary artery was away from the aorta
to facilitate a clamp site. The aortic cross-clamp was placed after decreasing the flow on the bypass and mean arterial pressure. A total of 1.2L initial dose of antegrade Del-Nido cardioplegia solution was given and planned for re-dosing every 75
minutes as necessary. There was rapid electro-mechanical arrest of the heart at 300 cc of cardioplegia. The left ventricle was observed for distention on echocardiogram and manual palpation. Cold slush was placed into a sponge and topically on the
RV while we systemically cooled to 34 degrees centigrade. Once heart was fully arrested was rotated medially and the ligament of Mac was divided using electrocautery. The left atrial appendage was clipped with a 35 mm device flush to the base.
I positioned the heart to expose the distal right coronary at the posterior descending artery. A northwestern [place] blade was used to expose the coronary and perform the arteriotomy. Coronary Hairston scissors were used to enlarge the incision. The saphenous vein
was trimmed and beveled to an appropriate size. The distal anastomosis was performed using 7-0 prolene in an end-to-side fashion. Antegrade cardioplegia was administered into the graft. Appropriate hemostasis and flow were confirmed. The graft was
measured for length to the aorta and cut. A suitable site on the obtuse marginal was chosen. We dissected and prepared the distal target in a similar fashion. An end-to-side anastomosis was created with a 8-0 prolene and secured with a micro core
knot. Antegrade cardioplegia was administered into the graft using an Angiocath into the radial. Appropriate hemostasis and flow were confirmed. The graft was measured for length to the aorta and cut. A suitable target on the mid/distal left
anterior descending was identified. We dissected and prepared the distal target in a similar fashion. We retrieved the ROE from the chest and created a pericardial opening while being cognizant of the phrenic nerve to facilitate the course of the
mammary. The distal end of the mammary was prepped and beveled to size. We verified orientation and length of the ARI and found brisk flow. An end-to-side anastomosis was created with a 8-0 prolene. We temporarily released the bulldog clamp on the
mammary to inspect flow. Perfusion to the LAD territory was visualized and hemostasis was confirmed. The bull clamp was replaced on the mammary. The heart was filled and the root was distended with antegrade cardioplegia to make final assessment of
graft length and orientation. We created 2 aortotomies using a #11 blade then a 4.0mm aortic punch. The proximal anastomoses were created in an end-to-side fashion using 7-0 prolene. At the the same time, we re-warmed to 36.5 degrees centigrade. The
bulldog clamp was removed from the mammary. Temporary atrial pacing wires were placed at the SVC right atrial junction. The patient was placed in a Trendelenburg position and flows on bypass were lowered. The aortic cross clamp was removed and flows
were slowly brought back up. A 30-gauge needle was used to de-air the vein grafts. All bypass grafts were inspected and were free from kinking or twisting. The distal and proximal anastomoses appeared hemostatic. Once transesophageal
echocardiography appeared satisfactory for de-airing, the flows were temporarily lowered for root vent removal. After verifying acceptable parameters, we initiated weaning from cardiopulmonary bypass. Once we were off cardiopulmonary bypass, the
venous cannula was clamped and removed. A test dose of protamine was administered and the patient was monitored for any adverse reaction before resuming protamine. Once half of the protamine dose was delivered, pump suckers were turned off and the
systolic blood pressure was lowered for aortic decannulation. The aortic cannula was removed and pursestrings were tied down. All cannulation sites were oversewn with a 4-0 prolene. The mammary bed was inspected and hemostasis was confirmed. Once
the mediastinum was hemostatic, 19Fr Boey drain was placed in the left pleural cavity and two 24Fr Obey drains were placed within the pericardium. The sternum was approximated with 4 #7 single and 3 #8 double stainless steel wires. Fascia was
approximated with #1 vicryl suture. The subcutaneous, dermis and epidermis were closed in layers in a running fashion. The skin wound was cleansed and dressed.
All instrument, sponge, and needle counts were confirmed to be correct x 2 at the end of the operation. The patient was transferred to the cardiac intensive care unit in critical but stable condition.
I, Dr. Aron Alanis, was present, scrubbed for, and performed all critical elements of this procedure.
Aron Alanis MD, MS
Cardiothoracic Surgeon
[facility]
This operative dictation was created using the [employer] dictation system. Please excuse any grammatical, typographical, or 'sound alike' errors
[2024-10-02] MEDS: LANTUS SC (11:14)
[2024-10-02] MEDS: NOVOLOG FLEXPEN-MODERATE RESISTANCE SC (11:14)
[2024-10-02 11:35] LABS: Glucose - Point of Care 151 mg/dl (70-99)
--- NOTE | 2024-10-02 11:39 | W.PN.CARDCBS ---
Addendum entered and electronically signed by Carter Smith MD 10/02/24 14:37:
Plan for permanent pacemaker on October 03, 2024 provided uneventful postoperative course over the next 12 hours.
Addendum entered and electronically signed by Carter Smith MD 10/02/24 14:35:
Patient seen and examined
Patient also evaluated interoperatively by Dr. Castrejon and myself after we were asked to evaluate by CT surgical team. Events of the operating room noted with asystole prior to going on bypass during takedown of the patient's ROE and radial
grafts. The heart was exposed and temporary atrial and ventricular wires were placed along with CPR. The patient is now awake alert and feeling well in the CT ICU. He is currently atrial and ventricularly paced with occasional ventricular
conducted beats.
Discussed intraoperatively plan for epicardial wires intraoperatively and endocardial device tomorrow as long as his epicardial wires remain stable.
Discussed with patient at bedside plan for right sided pacemaker placement including 1 of thousand risk of ME stroke and a 1% risk of pneumothorax tamponade infection or bleeding. He is left-handed and has his left radial site wrapped. I
also discussed with nursing at the bedside plans for removal of the patient's Pender-Sophia catheter later this evening so that we could utilize the right sided deltopectoral groove and subclavian vein for implant.
Exam:
Alert and oriented x 3
Nonfocal neurologically
Right IJ cordis
Right IJ Pender-Sophia catheter
Mediastinal tubes as noted
Sternum intact
Left radial harvest site wrapped with intact distal perfusion.
Right sided antecubital IV.
Cor regular no murmur
Sternum clear dry and intact
Abdomen soft nontender positive bowel sounds
Trace extremity edema
Causey catheter in place
Impression:
NSTEMI
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
s/p asystole with cardiovascular collapse requiring open chest cardiopulmonary resuscitation and emergent placement of temp V wire
ICM, EF 45-50% by echo 09/28/24
Hypertension
Hyperlipidemia
Ney-bvydxhd-xpupjumeg type 2 diabetes mellitus
Mild Parkinson's disease, not on chronic medication
Melanoma
Non-smoker
Prior hernia repair
Retired
Family history of CAD at the age of 73
Left heart cath 09/28/2024:
Left main: 56% mid to distal disease
LAD: Proximal to mid LAD 7075% stenosis with distal LAD good bypass target, robust khme-hf-utlhr collaterals
Left circumflex: Mid left circumflex 80 to 85% stenosis. Proximal OM1 diffuse 50 to 60% stenosis. Distal OM good bypass target.
RCA: 100% proximal RCA BRACELET MAKER NOVELTY with robust yvxn-ck-cjzgh collaterals
ECHO 09/28/24: EF 45 to 50%, hypokinesis of inferior wall and basal inferolateral akinesis, mild septal hypertrophy, stage I diastolic dysfunction, mild MR
Plan:
- He presented with chest pain and ruled in for NSTEMI with peak troponin of 26.8. Cath on 09/28 showed multivessel CAD and is tentatively planned for CABG 10/02/2024
- Preoperatively patient was noted to have varying degrees of av block, initially felt to be secondary to toprol administration however continued even after stopping medication.
- Patient underwent CABG x 3 (in situ ROE to LAD, AO to left radial to OM, AO to R SVG to RPDA) and SANTOSH clip on 10/02/2024. During procedure, prior to going on pump, patient had asystole. He underwent open chest cardiopulmonary resuscitation with
emergent placement of a temporary V wire
- Just extubated
- continue to avoid av kate blocking agents for now
- on levo@2. CI 1.49. wean pressors as able
- Echocardiogram preop with EF 45 to 50%
- hgb 11.4
- continue post op care
- Prior to admission was on amlodipine 5 mg daily, benazepril 5 mg daily
- Discussed with nursing
Original Note:
Today's Communication / Plan
-
Continue postop care
For pacemaker in a.m.
Impression / Plan
-
Noe is a 68-year-old gentleman with past medical history of hypertension, hyperlipidemia, yea-qigvjue-rfpuojqol type 2 diabetes mellitus, mild Parkinson's disease not on chronic medications, non-smoker, prior hernia surgery, melanoma who
presented to ED 09/28/2024 with off-and-on substernal chest discomfort that started Sunday going into Sunday after using a rowing machine. He has newly started using the rowing machine for aerobic exercise and has used this 4 times over the last 3
weeks. He did his normal rowing on Sunday and later that day started appreciating some substernal chest discomfort that he was not sure was potentially related to gas pain given he also had a large Romanian meal around similar timing. He then at
some point also noted very mild right jaw pain which made him concerned that it may be cardiac in nature and therefore he presented to the emergency room for evaluation. He received 2 sublingual nitroglycerin in the emergency room and became chest
pain-free he tells me. He has ongoing ' acid reflux' in his abdominal region which was concerning for the emergency room for ongoing cardiac pain and therefore patient was activated as a high risk NSTEMI. He was given full dose aspirin along with
unfractionated heparin and 2 sublingual nitro's in the emergency room. ECG showed sinus rhythm with Q waves inferiorly and posteriorly with nonspecific ST-T wave changes, not meeting STEMI criteria. Initial troponin I was elevated at 20.
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
PCP: Anand Mercado
Impression:
NSTEMI
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
s/p asystole with cardiovascular collapse requiring open chest cardiopulmonary resuscitation and emergent placement of temp V wire
ICM, EF 45-50% by echo 09/28/24
Hypertension
Hyperlipidemia
Erf-psflfhb-yugxzdjpp type 2 diabetes mellitus
Mild Parkinson's disease, not on chronic medication
Melanoma
Non-smoker
Prior hernia repair
Retired
Family history of CAD at the age of 73
Left heart cath 09/28/2024:
Left main: 56% mid to distal disease
LAD: Proximal to mid LAD 7075% stenosis with distal LAD good bypass target, robust uxht-rx-dpwuu collaterals
Left circumflex: Mid left circumflex 80 to 85% stenosis. Proximal OM1 diffuse 50 to 60% stenosis. Distal OM good bypass target.
RCA: 100% proximal RCA BRACELET MAKER NOVELTY with robust tuir-xk-lhuxr collaterals
ECHO 09/28/24: EF 45 to 50%, hypokinesis of inferior wall and basal inferolateral akinesis, mild septal hypertrophy, stage I diastolic dysfunction, mild MR
Plan:
- He presented with chest pain and ruled in for NSTEMI with peak troponin of 26.8. Cath on 09/28 showed multivessel CAD and is tentatively planned for CABG 10/02/2024
- Preoperatively patient was noted to have varying degrees of av block, initially felt to be secondary to toprol administration however continued even after stopping medication.
- Patient underwent CABG x 3 (in situ ROE to LAD, AO to left radial to OM, AO to R SVG to RPDA) and SANTOSH clip on 10/02/2024. During procedure, prior to going on pump, patient had asystole with cardio vascular collapse. He underwent open chest
cardiopulmonary resuscitation with emergent placement of a temporary V wire
- remains intubated, sedated
- underlying rhythm remains asystole. currently in paced rhythm on tele. arrangements made for permanent ppm placement in AM, d/w EP and CT surgery
- continue to avoid av kate blocking agents for now
- on levo@2. CI 1.49. wean as able
- Echocardiogram preop with EF 45 to 50%
- hgb 11.4
- continue post op care
- Prior to admission was on amlodipine 5 mg daily, benazepril 5 mg daily
- Discussed with nursing
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
Subjective
Date of Service: October 02, 2024
Intubated, sedated
Objective
Labs:
Labs
Hgb 13.1 g/dL (13.0-18.0) 10/02/24 05:08
Hct 37.9 % (39.0-52.0) L 10/02/24 05:08
Plt Count 165 10^3/uL (130-400) 10/02/24 05:08
PT 14.5 Sec (11.4-14.6) 09/28/24 08:53
INR 1.10 09/28/24 08:53
APTT 123.6 Sec (23.4-35.0) H 10/02/24 05:08
Sodium 140 mmol/L (135-145) 10/02/24 05:08
Potassium 4.4 mmol/L (3.5-5.1) 10/02/24 05:08
BUN 31 mg/dl (9-20) H 10/02/24 05:08
Creatinine 1.2 mg/dL (0.7-1.3) 10/02/24 05:08
Glucose 132 mg/dl (70-99) H 10/02/24 05:08
Vital Signs and I&O:
Vital Signs
Temp Pulse Resp BP Pulse Ox
98.3 F 83 18 116/71 100
10/02/24 04:54 10/02/24 06:41 10/02/24 04:54 10/02/24 04:50 10/02/24 04:54
Vital Signs
Temp Pulse Resp BP Pulse Ox
98.3 F 83 18 116/71 100
10/02/24 04:54 10/02/24 06:41 10/02/24 04:54 10/02/24 04:50 10/02/24 04:54
Intake & Output
09/30/24 10/01/24 10/02/2425
07:59 07:59 07:59 07:59
Intake Total 2190 / 2190 2006 / 2006 720 / 720 0 / 0
Output Total 950 / 950 2099 / 2099 870 / 870 0 / 0
Balance 1240 / 1240 -93 / -93 -150 / -150 0 / 0
Physical Exam
Physical Exam
GEN: No distress, intubated, sedated
HEENT: supple, mmm
LUNGS: CTA bilaterally, no wheezes/rales
CV: Reg, S1/S2, no murmur, + rub
ABD: soft, BS+, NT/ND
EXT: No cyanosis, clubbing, edema
NEURO: sedated
SKIN: Warm, pink, dry. No rash. CTs in place. temp wires in place.
: angelique
[2024-10-02] MEDS: LR 250 ML IV ×3 (11:45→18:00)
[2024-10-02 11:52] LABS: Hematocrit 31.7 % (39.0-52.0); Hemoglobin 11.4 g/dL (13.0-18.0); Platelet Count 136 10^3/uL (130-400)
[2024-10-02 11:54] LABS: B.E. -0.8 mmol/L; HCO3 23.4 mmol/L (21-28); Ionized Calcium 1.31 mMOL/L (1.15-1.33); O2 Saturation % 98.8 % (94-98); O2 Therapy vent; PCO2 36 mmHg (35-48); PO2 144 mmHg (83-108); Sodium 136 mMOL/L (136-145); pH 7.42 (7.35-7.45)
[2024-10-02 11:58] LABS: INR 1.16; PT 15.3 Sec (11.4-14.6)
--- NOTE | 2024-10-02 12:00 | CON.INTV ---
Consultation
Consultation Request
Date/Time Consultation Requested: 10/02/2024-11:30 AM
Date/Time Consultation Performed: 10/02/[id number] 5-12 noon
Requesting Provider: Dr. Alanis
Performing Provider: Dr. Cary
Reason for Consultation: postoperative ventilator/critical care management
Medical History
-
Chief Complaint: CAD
History of Present Illness:
68-year-old male with history of hypertension, diabetes, Parkinson's, and multivessel CAD underwent CABG and temporary atrial ventricular pacing wires and mold inspector consulted for postoperative ventilator/critical care management 10/02/2024.Patient
is sedated on the ventilator and review of systems was unobtainable. Operative records were reviewed reviewed including need for open chest cardiopulmonary resuscitation and emergent placement of temporary ventricular pacing wires for asystole,
chest tube, pressors, and ventilator were reviewed.
Past Medical History
Past Medical History: None ( CAD. Hypertension. Diabetes. Parkinson's. Hernia repair)
Social History
Tobacco: Non-smoker
Alcohol: Occasional
Drug: None
Personal:
Living: With Family
Occupational Exposures: No known asbestos exposure
Environmental Exposures: no known tuberculosis exposure
Family History
Family History: Reviewed & Not Pertinent
Allergies / Home Medications
Allergies
Allergy/AdvReac Type Severity Reaction Status Date / Time
No Known Allergies Allergy Verified 09/09/20 07:24
Home Medications
�Medication �Instructions �Recorded �Confirmed �Last Taken �Type
benazepril 5 mg tablet (Lotensin) 5 mg PO DAILY Blood Pressure 02/18/20 09/28/24 09/08/20 06:30 History
metformin 500 mg tablet 500 mg PO BID Diabetes 02/18/20 09/28/24 09/08/20 20:00 History
amlodipine 5 mg tablet 5 mg PO DAILY Blood Pressure 09/28/24 09/28/24 Unknown History
empagliflozin 10 mg tablet 10 mg PO DAILY Diabetes 09/28/24 09/28/24 Unknown History
(Jardiance)
Review of Systems
-
Unable to Obtain full review of systems at this time due to: Other ( per HPI)
Vitals / Labs / Diagnostic Testing
Vital Signs
Temp Pulse Resp BP Pulse Ox
96.8 F L 70 14 95/63 99
10/02/24 11:25 10/02/24 11:40 10/02/24 11:25 10/02/24 11:30 10/02/24 11:40
Laboratory Results
10/02/24 10/02/24
05:08 11:34
PT 15.3 H
INR 1.16
APTT 123.6 H
pH 7.42
pCO2 36
pO2 144 H
HCO3 23.4
O2 Delivery Level vent
Diagnostic Testing:
Physical Exam
-
Exam:
well-nourished and well-developed in no apparent distress
HEENT-atraumatic, normocephalic, oral tracheal intubation
Heart-regular rate and rhythm-no murmurs, rubs or gallops
Chest-clear to auscultation, no wheezes, crackles, median sternotomy bandage is not removed
Abdomen soft nondistended
Extremities-no cyanosis, clubbing, edema and good peripheral pulses
Integument-intact, no rashes, lesions or ecchymosis
Neurologically not alert, not oriented, not moving any of his extremities sedated on a ventilator
Assessment
-
68-year-old male with history of hypertension, diabetes, Parkinson's, and multivessel CAD underwent CABG and temporary atrial ventricular pacing wires and mold inspector consulted for postoperative ventilator/critical care management 10/02/2024.
Multivessel CAD with NSTEMI and preoperative mildly reduced EF-45-50%
Status post CABG x 3-ROE-LAD, AO to left radial to OM, AO to RSVG to RPDA, open chest CPR with emergent placement temporary pacing wires for asystole-Dr. Alanis 10/02/2024
Complete heart block
Mild anemia
Mild hyperglycemia
Conditions present prior to admission:
CAD.
Hypertension.
Diabetes.
Parkinson's.
Hernia repair
Plan
Ventilator settings reviewed
FiO2 will be weaned
Minute ventilation will be adjusted
Arterial blood gases will be monitored
Spontaneous breathing trial will be attempted with hopeful extubation after anesthesia/sedation wear off
Pulmonary artery catheter parameters will be followed
Pressors/antihypertensive/inotropes/diuretics will be provided as needed
Monitor chest tube output
Monitor hemoglobin
Monitor platelet count and coags
Transfuse blood product if needed
CT surgery following chest tubes
Temporary pacemaker placed IntraOp for complete heart block-will likely need permanent pacemaker
Monitor blood sugar
Insulin drip per protocol
Aspiration precautions
VAP prevention protocol
DVT prophylaxis
Early nutrition
Early mobilization
Critical care statement: A total of 55 minutes of critical care time was provided for this patient today. This includes management of ventilator, spontaneous breathing trial, arterial blood gases, pressors, of unstable vital signs, evaluation of the
patient at bedside, reviewing the patient's pertinent medical records including radiographs, microbiology, laboratory evaluations, and discussion with primary team and critical care nursing.
Diagnostic data:
Chest x-ray 09/28/24-NAD
Chest x-ray 10/02/2024-postoperative tubes and lines in place, NAD
CT chest 09/29/24-no acute pathology in the chest, nonobstructing left renal stone
Echocardiogram 09/28/24-EF 45-50%, inferior wall hypokinesis, mild septal hypertrophy 1.3 cm, stage I diastolic dysfunction
Cardiac catheterization 09/28/24-significant multivessel CAD involving left main, LAD, mid circumflex and RCA
Data Reviewed
-
EKG: Report reviewed by me
Radiology: Report reviewed by me
CT Scan: Report reviewed by me
Labs: Labs reviewed by me
Old Records: Reviewed
Critical Care Time (in minutes): 55
[2024-10-02 12:05] LABS: Blood Urea Nitrogen 26 mg/dl (9-20); Estimated Creatinine Clearance 67 ml/min; Glucose 146 mg/dl (70-99); Magnesium 3.2 mg/dl (1.6-2.3)
[2024-10-02 12:10] LABS: Mixed Venous O2 Saturation 66.8 %
[2024-10-02 12:20] LABS: Glucose - Point of Care 155 mg/dl (70-99)
--- NOTE | 2024-10-02 12:31 | PTCARENOTE ---
Patient received from [facility] at 1125; Sedated and intubated; 100% AV paced rhythm on monitor; VSS; Friction rub present; Epicardial AV wires present with settings DDI 70/12/0.5 70/10/0.8; +1 DP and +2 radial pulses present; Lungs diminished
throughout; ETT size 8 positioned and secured at 24 cm right lip; Ventilator settings SIMV 14/500/5/5 FiO2 40%; CTx3 to -20 cm wall suction draining bloody drainage - no air leak, tidaling, or crepitus noted; Hypoactive BS; Causey catheter in place
draining clear, yellow urine; Sternal incision glued, approximated, and CHRISTIN - CDI, right groin puncture site glued, approximated, ecchymotic, and TASTE TESTER - CDI, right leg wrapped in RHIANNON wrap - CDI, left arm wrapped in RHIANNON wrap - CDI; Right radial A-line
in place, Fluker Sophia present in [facility] Cordis at 42 cm - all lines zeroed and leveled; PIV x1 - #20 right forearm; Levo, insulin, and precedex infusing - see nursing flowsheets for further details; CI<2 - CVNP Racheal Son notified and MVO2 sent; see
nursing documentation for further details.
CO: 2.75
CI: 1.49
SVR: 1,716
[2024-10-02] MEDS: ANCEF 10 IV ×2 (13:11)
[2024-10-02] MEDS: NSS 500 IV (13:11)
[2024-10-02] MEDS: COLACE PO (13:15)
[2024-10-02] MEDS: LOW STRENGTH ASPIRIN PO (13:16)
[2024-10-02] MEDS: TYLENOL PO (13:17)
--- NOTE | 2024-10-02 13:19 | W.PN.UPDATE ---
Update Note
Progress Note Update
68-year-old male was admitted 09/26/2024 with substernal pressure chest pain and ruled in for NSTEMI. Patient developed Mobitz type I and then episode of brief complete heart block later in the evening. No transvenous pacer required preop. Patient
taken to the OR on 10/02/2024 for CABG
IV fluids: 1100
U.O.:� 400
Blood:� none
Wires:� A + V wires>DDDI 70BPM-100% pacing d/t CHB
Drips: levophed @ 2, Precedex
�
NEURO: sedated, pupils +2mm B/L
RESP: #8OT @23cm> 500/40%/14/5. Lungs clear B/L. 2 mediastinal (0cc on arrival) and L pleural (cc on arrival) chest tubes to -20cm suction. Sanguineous drainage, no air leak, no crepitus
CV: RRR +S1, S2, no S3, no�rub, no murmur. Dermabond to median sternotomy. RIJ w/[place] locked @ XXcm. PA 31/15; CVP 13; C.O 3.08/CI 1.66; MVO2 66.8%
ABD: round, soft, no BS
EXT: no edema, +2/4 DP pulses B/L, no femoral bruit, RLE RHIANNON wrap intact; LUE RHIANNON wrap intact w/ecchymosis above wrap (above elbow). Right radial A-line intact
: Causey with clear yellow urine
�
A/P: POD #0 s/p Open chest cardiopulmonary resuscitation with emergent placement of temporary ventricular pacing wire for asystole during take down of ROE, CABG x 3 (ROE to LAD, left radial to OM, RSVG to RPDA), Left atrial appendage exclusion [35
mm device]
MAYA: report pending
- wean and extubate
# CAD
- hold on Beta-harry/prophylactic Amio as CHB with 100% AV pacing
- will require ASA/Plavix, statin
- will need Norvasc for radial patency after PPM inserted
# CHB
- required 1 minute CPR intra-op
- for PPM 5/[address] Harvey
- hold rate lowering agents
�
# acute surgical blood loss anemia-expected
- trend CBC
�
# T2DM (A1C 8)
- insulin infusion x 48h
- home regimen: SOSA, Susana
- diabetes CHIEF AIRLINE RADIO OPERATOR consulted
�
# Hypertension
- resume�ACEI as BP permits
--- NOTE | 2024-10-02 13:20 | PTCARENOTE ---
RT in room and patient placed on CPAP trial. EPOC ABG due at 1350
[2024-10-02 13:55] LABS: B.E. - POC -2.2 mmol/L; Blood Urea Nitrogen - POC 24 mg/dl (3-120); Chloride - POC 109 mmol/L (96-111); Creatinine - POC 1.11 mg/dl (0.3-1.0); Glucose - POC 153 mg/dl (70-99); HCO3 - POC 20 mmol/L (21-28); Hematocrit - POC 33 % PCV (42-52); Hemodilution- POC No; Hemoglobin Calculated - POC 11.2; Ionized Calcium - POC 1.24 mmol/L (1.15-1.33); Lactate - POC 1.64 mmol/L (0.36-0.75); O2 Saturation %Calculated-POC 99.8 % (94-98); PCO2 - POC 25 mmHg (35-48); PO2 - POC 217 mmHg (83-108); Potassium - POC 3.8 mmol/L (3.5-5.1); Sodium - POC 143 mmol/L (136-145); Specimen Type - POC Arterial; pH - POC 7.51 (7.35-7.45)
--- NOTE | 2024-10-02 13:55 | RESPNOTE ---
patient extubated at this time without incident. 100% on 6L.
--- NOTE | 2024-10-02 14:10 | PTCARENOTE ---
EPOC ABG reviewed with ANCELMO Son at bedside; RT at bedside; Patient extubated at 1355 and placed on 6L NC; IS 1500 ml
[2024-10-02] MEDS: KCL 50 IV (14:19)
[2024-10-02 14:34] LABS: B.E. - POC -2.5 mmol/L; Blood Urea Nitrogen - POC 25 mg/dl (3-120); Chloride - POC 108 mmol/L (96-111); Creatinine - POC 1.15 mg/dl (0.3-1.0); Glucose - POC 137 mg/dl (70-99); HCO3 - POC 22 mmol/L (21-28); Hematocrit - POC 32 % PCV (42-52); Hemodilution- POC No; Hemoglobin Calculated - POC 10.9; Ionized Calcium - POC 1.28 mmol/L (1.15-1.33); Lactate - POC 1.32 mmol/L (0.36-0.75); O2 Saturation %Calculated-POC 99.5 % (94-98); PCO2 - POC 36 mmHg (35-48); PO2 - POC 170 mmHg (83-108); Potassium - POC 3.9 mmol/L (3.5-5.1); Sodium - POC 144 mmol/L (136-145); Specimen Type - POC Arterial; pH - POC 7.39 (7.35-7.45)
[2024-10-02 15:19] LABS: Glucose - Point of Care 145 mg/dl (70-99)
[2024-10-02 15:19] LABS: Glucose - Point of Care 167 mg/dl (70-99)
[2024-10-02] MEDS: LOW STRENGTH ASPIRIN 81 MG PO (15:28)
[2024-10-02 15:47] LABS: Glucose - Point of Care 112 mg/dl (70-99)
--- NOTE | 2024-10-02 16:00 | PTCARENOTE ---
EPOC ABG done at bedside after extubation as per ANCELMO Son; A-line not giving blood return or good waveform - CVMARI Son notified and levo infusion to go by cuff BP instead of arterial BP for now
[2024-10-02 16:07] LABS: Glucose - Point of Care 134 mg/dl (70-99)
[2024-10-02 16:21] LABS: Hematocrit 31.6 % (39.0-52.0); Hemoglobin 10.9 g/dL (13.0-18.0)
[2024-10-02] MEDS: CRESTOR 40 MG PO (17:59)
[2024-10-02] MEDS: ANCEF 5 IV (17:59)
[2024-10-02] MEDS: NEURONTIN 100 MG PO ×2 (17:59→21:14)
[2024-10-02 18:07] LABS: Glucose - Point of Care 88 mg/dl (70-99)
[2024-10-02] MEDS: LEVOPHED 250 IV (19:51)
[2024-10-02 20:04] LABS: Glucose - Point of Care 106 mg/dl (70-99)
[2024-10-02] MEDS: SENOKOT-S 1 TABLET PO (20:07)
[2024-10-02] MEDS: TYLENOL 1000 MG PO (21:14)
--- NOTE | 2024-10-02 21:21 | PTCARENOTE ---
A-line removed by RN at bedside as per CVPA Tsillina; Levo infusion being weaned - see nursing flowsheets for further details
CO: 4.23
CI: 2.29
SVR: 1,115
[2024-10-02 22:02] LABS: Glucose - Point of Care 109 mg/dl (70-99)
[2024-10-02] MEDS: NORVASC 2.5 MG PO (22:15)
--- NOTE | 2024-10-02 22:17 | PTCARENOTE ---
PO Norvasc started as per FABRICIO Wrighta; Patient resting comfortably in bed
CO: 4.37
CI: 2.36
SVR: 1,189
[2024-10-02 23:54] LABS: Glucose - Point of Care 90 mg/dl (70-99)
[2024-10-03] VITALS (30 sets, daily range): BP systolic 84–150; BP diastolic 43–93; BMI 22.1
--- NOTE | 2024-10-03 | PTCARENOTE ---
pt received from previous RN, oriented, in bed. 100% AV paced on the monitor, HR 76. +rub. A&V wires in place, DDI 76/12/10. SBP 100-110s, MAPs 70-80s, Levophed gtt running as ordered. PAP 10-20s/10s. CVP~4. CI >2, SVR ~1400. palpable pulses. pt on
2LNC, 100% POX. lungs diminished. IS encouraged. CTx3, no air leak or crepitus noted. pt abdomen s/n, denies n/v. Causey in place, clear yellow urine. sternal incision HEALTH CARE FACILITIES INSPECTOR, approximated. chest tube site c/d/i. R groin puncture CHRISTIN. RLE RHIANNON bandage in
place. LUE RHIANNON bandage in place. NICHOLE zaragoza/bo maintained. PIV. insulin gtt running as ordered. see worklist for VS, I&O, and assessment.
[2024-10-03] MEDS: ANCEF 5 IV ×3 (02:28→22:43)
[2024-10-03 02:29] LABS: Glucose - Point of Care 116 mg/dl (70-99)
[2024-10-03 03:17] LABS: Mixed Venous O2 Saturation 62.3 %
[2024-10-03] MEDS: LR 250 ML IV ×2 (03:19→06:28)
[2024-10-03 03:21] LABS: Hematocrit 31.8 % (39.0-52.0); Hemoglobin 11.2 g/dL (13.0-18.0); Mean Corp Hgb Conc. 35.2 g/dL (33.0-37.0); Mean Corpuscular Hgb 31.8 pg (27.0-31.0); Mean Corpuscular Volume 90.3 fL (80.0-94.0); Mean Platelet Volume 12.6 fL (7.4-10.4); Platelet Count 152 10^3/uL (130-400); Red Blood Cell Count 3.52 10^6/uL (4.70-6.10); White Blood Cell Count 15.5 10^3/uL (4.8-10.8)
[2024-10-03 03:42] LABS: Blood Urea Nitrogen 26 mg/dl (9-20); Calcium 8.6 mg/dl (8.4-10.2); Carbon Dioxide 21 mmol/L (22-30); Chloride 110 mmol/L (98-107); Estimated Creatinine Clearance 55 ml/min; Glucose 169 mg/dl (70-99); Magnesium 2.1 mg/dl (1.6-2.3); Potassium 5.4 mmol/L (3.5-5.1); Sodium 140 mmol/L (135-145); eGFR > 60.00
[2024-10-03 04:06] LABS: Glucose - Point of Care 87 mg/dl (70-99)
--- NOTE | 2024-10-03 04:33 | PTCARENOTE ---
pt VSS, no changes in assessment. pt washed w/ CHG wipes, gown changed. face washed, oral hygiene performed. chest tube dressing changed. lab work drawn, EKG performed while 100% AV paced per SISSY Jean. 250ml LR bolus given per PA. NICHOLE soriano dc'd as
ordered, [facility] cordis dressing changed.
[2024-10-03 05:14] LABS: Blood Urea Nitrogen 27 mg/dl (9-20); Carbon Dioxide 23 mmol/L (22-30); Chloride 111 mmol/L (98-107); Estimated Creatinine Clearance 51 ml/min; Glucose 81 mg/dl (70-99); Potassium 5.2 mmol/L (3.5-5.1); Sodium 141 mmol/L (135-145)
[2024-10-03] MEDS: TYLENOL 1000 MG PO ×2 (05:48→22:44)
[2024-10-03] MEDS: LOKELMA 10 GRAM PO (06:00)
[2024-10-03 06:14] LABS: Glucose - Point of Care 90 mg/dl (70-99)
--- NOTE | 2024-10-03 06:25 | PTCARENOTE ---
Addendum entered by Sarahi Jaramillo RN 10/03/24 06:25:
per PA, keep angelique in place, order changed.
Original Note:
PA aware of lab results, Lokelma given as ordered, 250ml LR bolus ordered.
--- NOTE | 2024-10-03 07:19 | W.PN.ANS.POP ---
Anesthesia Post Operative
- Anesthesia Post Op Note
Vital Signs Stable-See Nursing Note: Yes
Airway Patent: Yes
Adequate Pain Control: Yes
Change in Mental Status: No
Current Postoperative Nausea & Vomiting: No
Anesthesia Complications: No
General Anesthetic Recall: No
Unplanned Admission: No
Post Op Hydration Adequate: Yes
--- NOTE | 2024-10-03 08:00 | PTCARENOTE ---
resumed care of patient. in bed at time of assessment, AAOx3. Anxious. 100% AV paced on the monitor, HR 76. +rub. A&V wires set to backup DDI . VSS. + pulses. 100% 2L. weaned to RA. 97%. IS 750. lungs diminished. CTx3, no air leak or
crepitus noted. orders to d/c L pleural today. +bs. NPO for PPM today. Causey in place, clear yellow urine. orders to d/c today. All surgical sites c/d/i. NICHOLE zaragoza/bo maintained. PIV. insulin gtt per glycemic protocol. will continue to monitor.
--- NOTE | 2024-10-03 08:15 | W.PN.CT ---
Today's Communication / Plan
-
-pod #1
-AV paced @ 76 overnight, hemodynamically and neurologically intact
-NPO for pacer today for CHB
-CI 2.36, CO 4.37. Drips: Insulin only
-CT outputs: 2 meds 80/200, L pleur 65/85 in 12/24 hrs
-K 5.4, recheck 5.2 this am. Cr 1.3 (at baseline)- gave 10 mg Lokelma. Will recheck @ 10 am
-start BB and Amio after pacer implant
-gave 2.5 po Norvasc last night for radial graft-continue
-deline
-continue insulin
-encourage IS, OOB
Assessment / Plan
-
-s/p CABG x 3 (In situ ROE to LAD, Ao to left radial to OM, Ao to RSVG to RPDA); Open chest cardiopulmonary resuscitation with emergent placement of temporary ventricular pacing wire for asystole; LAAE [35 mm device] by Dr. Alanis on 10/02/24, pod #1
-intraop MAYA: LVEF preop was 55% although appeared very dyskinetic as he was in a junctional type rhythm. Following surgery his EF appeared to be normal at 60% with no specific regional wall motion abnormalities.
-Severe 3v CAD including 50-60% distal LM
-NSTEMI (peak trop 26.8)
-Complete heart block
-Family history of CAD at the age of 73
-LVEF 45-50%
-No significant valvular disease
-Hypertension
-Hyperlipidemia
-T2DM (hgb A1C 8.0)
-Mild Parkinson's disease/essential tremors, not on chronic medication
-Melanoma
-Non-smoker
-Preop bradycardia, Mobitz 1, CHB
-S/p Right inguinal herniorrhaphy
-S/p Right lithotripsy
-S/p Left upper extremity melanoma resection
-Incidental finding of L thyroid nodule - recommended non-emergent biopsy
-Acute postop blood loss anemia
-Acute postop atelectasis
-Acute postop hypovolemia with subsequent hypervolemia
Discussed patient care with: Nursing and Care Team
Subjective
-
Date of Service: October 03, 2024
Objective Data
-
PT 15.3 Sec (11.4-14.6) H 10/02/24 11:34
INR 1.16 10/02/24 11:34
APTT 123.6 Sec (23.4-35.0) H 10/02/24 05:08
Vital Signs
Vital Signs
Temp Pulse Resp BP Pulse Ox
98.2 F 76 16 110/70 100
10/02/24 23:53 10/03/24 00:00 10/02/24 23:53 10/03/24 00:00 10/03/24 00:00
CT Intake/Output/Weight
10/02/24 10/02/24 10/03/24
06:59 18:59 06:59
Intake Total 480 / 720 1323.1 / 1635.4 312.3 / 1635.4
Output Total 420 / 870 570 / 850 280 / 850
Balance 60 / -150 753.1 / 785.4 32.3 / 785.4
SaO2: 100
Physical Exam
-
General: Awake and AOx3
Cardiovascular: Regular rate & rhythm, No Murmurs and Rub
Respiratory: Decreased Breath Sounds
Sternum: Stable
Incision: Clean, Dry and Intact
Extremities: No Edema
Abdomen: soft, nontender, nondistended, + decreased bowel sounds
Data Reviewed
-
Lab Results: Results Reviewed
Medications: Active Meds Reviewed
Chest X-Ray: Report Reviewed and Image Reviewed
ECG: Report Reviewed and Image Reviewed
[2024-10-03 08:20] LABS: Glucose - Point of Care 114 mg/dl (70-99)
--- NOTE | 2024-10-03 08:20 | W.PN.UPDATE ---
Update Note
Progress Note Update
Briefly, patient is a 68-year-old male with a past medical history significant for hypertension, diabetes mellitus type 2, NSTEMI with multivessel CAD status post CABG x 3 with left atrial appendage clip on 10/02/2024 complicated by complete heart
block, asystole with CPR intraoperatively status post temporary AV wires now with complete heart block. Patient stabilized yesterday and doing well overnight. In discussing with patient, in the setting of his complete heart block and LVEF of 45
5-50%, patient to benefit from implantation of dual-chamber pacemaker. Regarding pacemaker, we discussed pacemaker indications and device implant in detail. For implant there is an approximate 1:1000 risk of NH/stroke/ and a 1% risk of
pneumothorax/tamponade/infection/bleeding. We also discussed post procedure implant restrictions including positions to avoid with implant arm for first six weeks after implant as well as driving restrictions. I took time to answer all questions.
Plan to place right-sided device in the setting of left handedness. Discussed with CT surgery team will remove right IJ Cordis if able. I took time to answer all questions. Patient verbalized understanding and agreed with plan. Patient
consented. Remains NPO.
[2024-10-03] MEDS: BACTROBAN 2% OINTMENT 1 APPLIC NASAL ×2 (08:31→20:21)
[2024-10-03] MEDS: NOVOLOG FLEXPEN SC ×3 (08:32→16:51)
--- NOTE | 2024-10-03 08:32 | PN.DE.MGMTRT ---
Insulin Management
- -
10/03/2024: Diabetes Management Consult
68 year old male with PMH: HTN, HLD, NIDDM, Mild Parkinson's disease, not on chronic medication, Melanoma
Patient presented to the ED on with substernal chest discomfort relieved with sublingual nitroglycerin. Troponin initially 20.2 and he was taken urgently for cardiac catheterization as high risk NSTEMI which revealed multivessel CAD. Pt under went
CABG x 3-ROE-LAD, AO to left radial to OM, AO to RSVG to RPDA, open chest CPR with emergent placement temporary pacing wires for asystole.
Pt awake, alert, oriented, sitting up in bed, offers no complaints, able to discuss diabetes management
States he was taking Metformin 500 mg BID and Jardiance 10 mg daily [employer]. He dose not monitor his blood sugars at home. A1C 8.0%, Cr 1.3, eGFR 59.10.
Pt was started on glycemic protocol for optimal glucose control and will remains on current therapy till tomorrow.
will place orders to assist with transition tomorrow assuming pt's condition remains stable and medically appropriate to discontinue insulin infusion.
Discussed current A1C and emphasized importance of optimal glucose control to promote surgical incision wound healing.
Pt was agreeable to addition of Lantus daily.
10/04 Give Lantus 15 units @ 11:00 tomorrow and turn insulin drip off 1 hr after administering Lantus and continue same dose daily in AM.
Resume his oral OP regimen: Metformin at increased dose of 1000 mg daily and Farxiga 10mg (was taking Jardiance 10mg daily at home)
Will follow up with pt on Sunday and provide glucose monitor and insulin instructions.
Diabetes History
- -
Type of Diabetes: 2 requiring insulin
Pre-Admission Diabetes Regimen
10/02/24 10/03/24 10/03/24
11:34 02:24 04:30
Creatinine 1.0 1.2 1.3
Lab Results
Hemoglobin A1c 8.0 % (4.0-5.6) H 09/28/24 08:53
Insulin Pump Settings
IP Diabetes Regimen
10/02/24 10/02/24 10/02/24
11:32 11:34 12:19
Glucose 146 H
POC Glucose 151 H 155 H
10/02/24 10/02/24 10/02/24
13:08 13:55 15:27
Glucose
POC Glucose 167 H 145 H 112 H
10/02/24 10/02/24 10/02/24
16:03 18:05 20:01
Glucose
POC Glucose 134 H 88 106 H
10/02/24 10/02/24 10/03/24
22:00 23:52 02:24
Glucose 169 H
POC Glucose 109 H 90
10/03/24 10/03/24 10/03/24
02:27 04:05 04:30
Glucose 81
POC Glucose 116 H 87
10/03/24 10/03/24
06:13 08:19
Glucose
POC Glucose 90 114 H
Meal type: Lunch
Patient Education
[2024-10-03] MEDS: NSS IV (08:35)
--- NOTE | 2024-10-03 08:52 | W.PN.INTV ---
Addendum entered and electronically signed by Kendrick Cary MD 10/03/24 11:16:
error -disregard statement about postoperative oozing improved with DDAVP, platelets and protamine-that was another patient-this patient did not receive that therapy
Original Note:
Today's Communication / Plan
Recommendations
Wean insulin drip
Monitor chest tube output
Permanent pacemaker today
deline
Subsequently increase activity
Likely transferred to telemetry-material damage appraiser will sign off-please call if respiratory issues arise
Assessment
-
68-year-old male with history of hypertension, diabetes, Parkinson's, and multivessel CAD underwent CABG and temporary atrial ventricular pacing wires and material damage appraiser consulted for postoperative ventilator/critical care management 10/02/2024.
Multivessel CAD with NSTEMI and preoperative mildly reduced EF-45-50%
Status post CABG x 3-ROE-LAD, AO to left radial to OM, AO to RSVG to RPDA, open chest CPR with emergent placement temporary pacing wires for asystole-Dr. Alanis 10/02/2024
Complete heart block
Mild anemia
Mild hyperglycemia
Conditions present prior to admission:
CAD.
Hypertension.
Diabetes.
Parkinson's.
Hernia repair
Plan
tolerated extubation
Wean FiO2
Encourage incentive spirometry
Increase activity
Aspiration precautions
Pulmonary artery catheter and arterial line will be removed
Pressors have been weaned
Continue to monitor chest tube output
Follow hemoglobin
Continue to follow platelet count and coags
Transfuse blood product as needed
CT surgery following chest tubes as well
Postoperative oozing improved with DDAVP, platelets and protamine
Permanent pacemaker today
Follow blood sugar
Insulin supplementation continues as needed
Early nutrition
Early mobilization
DVT prophylaxis
Patient will be transferred to telemetry phase after permanent pacemaker placement and after insulin drip discontinued-call pulmonary if respiratory issues arise
Reviewed the patient's pertinent medical records including radiographs, microbiology, laboratory evaluations, and discussion with primary team, and critical care nursing.
Diagnostic data:
Chest x-ray 09/28/24-NAD
Chest x-ray 10/02/2024-postoperative tubes and lines in place, NAD
CT chest 09/29/24-no acute pathology in the chest, nonobstructing left renal stone
Echocardiogram 09/28/24-EF 45-50%, inferior wall hypokinesis, mild septal hypertrophy 1.3 cm, stage I diastolic dysfunction
Cardiac catheterization 09/28/24-significant multivessel CAD involving left main, LAD, mid circumflex and RCA
Subjective Dataa
Subjective Data
Date of Service:
Date of Service: October 03, 2024
Chief Complaint: [employer] Follow Up and Pulmonary Follow Up
Subjective:
Tolerated extubation, no complaints of shortness of breath, pain controlled, no abdominal pain
Review of Systems
General: Other ( Per HPI)
Objective Data
Data Reviewed
Vital Signs / I&O / Oxygen:
Vital Signs
Temp Pulse Resp BP Pulse Ox
98.4 F 79 23 95/70 100
10/03/24 08:00 10/03/24 08:15 10/03/24 08:15 10/03/24 08:00 10/03/24 08:15
Intake and Output
10/02/24 10/03/24 10/04/24
06:59 06:59 06:59
Intake Total 720 / 720 2324.6 / 2324.6 10.4 / 10.4
Output Total 870 / 870 1160 / 1160 80 / 80
Balance -150 / -150 1164.6 / 1164.6 -69.6 / -69.6
SaO2 [CPAP/PSV] 100
SaO2 [SIMV] 98
SaO2 100
Nasal Cannula flow liters per 2
minute
Physical Exam
General: Respiratory Distress and Comfortable
HEENT: Normocephalic, Anicteric and Moist Mucous Membranes
Cardiovascular: Regular Rhythm and Murmur
Respiratory: Wheeze (n), Crackles (n), Rhonchi (n), Non-Labored Respirations, Accessory Resp Muscle Use (n), Stridor and Chest Tube
GI: Soft, Non Distended and Non Tender
Neurology: Awake, Alert and No Motor Deficits
Skin: Good Color and Cyanosis (n)
Labs/Micro/Reports
Lab Data
10/03/24 02:24
Laboratory Results
10/02/24
11:34
PT 15.3 H
INR 1.16
pH 7.42
pCO2 36
pO2 144 H
HCO3 23.4
O2 Delivery Level vent
[2024-10-03] MEDS: NEURONTIN 100 MG PO ×3 (09:00→22:44)
[2024-10-03] MEDS: LOW STRENGTH ASPIRIN 81 MG PO (09:01)
[2024-10-03] MEDS: MAGNESIUM OXIDE 500 MG PO ×2 (09:01→20:22)
[2024-10-03] MEDS: SENOKOT-S 1 TABLET PO ×2 (09:01→20:22)
[2024-10-03] MEDS: PROTONIX 40 MG PO (09:02)
[2024-10-03 10:34] LABS: Glucose - Point of Care 87 mg/dl (70-99)
[2024-10-03 11:09] LABS: Blood Urea Nitrogen 29 mg/dl (9-20); Calcium 9.1 mg/dl (8.4-10.2); Carbon Dioxide 23 mmol/L (22-30); Chloride 109 mmol/L (98-107); Estimated Creatinine Clearance 53 ml/min; Glucose 88 mg/dl (70-99); Sodium 140 mmol/L (135-145)
--- NOTE | 2024-10-03 11:55 | CM ---
CM following for DC planning needs.
Pt. POD#[address] Surg[address]
Met w/ patient at bedside. Pt. feeling well, reports no issues.
Antic. DC to home with CT Transitional Care RN once stable.
Will remain available for continued support and needs @ DC.
[2024-10-03 12:36] LABS: Glucose - Point of Care 86 mg/dl (70-99)
--- NOTE | 2024-10-03 13:00 | PTCARENOTE ---
sent in bed with airport maintenance laborer RNs for PPM placement. report given.
--- NOTE | 2024-10-03 13:46 | ITS.CL.PACE ---
Logistics Planner - Pacemaker Implant
Pacemaker Implant
Procedure Report:
Primary Care Doctor: Dr Anand Mercado
Procedure Date: 10/03/2024
Name of procedure:
1. Placement of a right sided dual-chamber pacemaker with left bundle area pacing lead for conduction system pacing
2. Subclavian venography
History:
1. Patient is a pleasant 68-year-old male with a history multivessel CAD status post CABG, ischemic cardiomyopathy with LVEF 45-50%, hypertension, hyperlipidemia, diabetes mellitus type 2, family history of heart disease, high degree block/complete
heart block complicated by asystolic pause during CABG requiring urgent temporary epicardial pacing wires.
2. Please refer to H&P for complete history.
Indication:
Complete heart block
Sinus pause/sick sinus syndrome
Methods:
After informed consent was obtained, the patient was brought to the EP laboratory in a postabsorptive, nonsedated state. Peripheral IV access was established. Prophylactic antibiotics were administered prior to incision. Continuous ECG, blood
pressure, and pulse oximetry were initiated. Cardioversion patch electrodes were placed on the patient's chest and back. A grounding patch was applied to the skin. Sedation was administered by anesthesia services.
In order to define the extrathoracic portion of the subclavian vein and exclude significant venous obstruction or anomalous anatomy, subclavian venography was performed prior to the procedure. Using the patient's right peripheral IV, contrast was
injected and images were recorded. The right subclavian vein and SVC were found to be widely patent.
The right chest was prepared and draped in a sterile fashion. A time-out was performed. Local anesthesia was injected in the subcutaneous tissue in the infraclavicular area. An incision was made medial to the deltopectoral groove. The
subcutaneous tissue was dissected the level of the prepectoral fascia. A subcutaneous pocket was created. Under fluoroscopic guidance and with the assistance of the images from the venogram, 2 separate venipunctures were made using micropuncture
and modified Seldinger technique. These were performed in the extrathoracic portion of the subclavian vein. Guidewires were passed and two peel-away sheaths were placed, and used to advance leads into the circulation.
Fluoroscopy was used to determine likely anatomic site for left bundle branch pacing. The Medtronic C315 sheath was used to deliver the Medtronic 3830 Selectsecure pacing lead with the helix exposed just exposed from the sheath tip during continuous
monitoring when pacemapping the septum during gentle clockwise rotation to obtain a paced QRS morphology of a W pattern in lead V1. Once the suspected optimal site was identified, lead deployment was performed with several rapid rotations as paced
QRS morphology was intermittently monitored until a paced QRS complex in lead V1 demonstrated development of an R wave (qR or rSR). Unipolar pacing impedance dropped by approximately 100-200 ohms suggesting it had reached the left ventricular
subendocardial. Stable VEgm injury current is present throughout lead position and at end of case. Final unipolar pacing impedance is 740 Ohms. Unipolar pacing threshold is stable at 1.0 V @ 0.4 ms. The patient had pre-existing narrow QRS. Final
conduction system paced QRS complex duration is 117 ms, LVAT is 46 ms, and peak V5 -> peak V1 timing is 56 ms. The C315 sheath was slit under fluoroscopy ensuring lead position and stability.
Next, the right atrial lead was positioned in the right atrial appendage. Adequate sensing and pacing parameters were found, and no diaphragmatic stimulation was seen with high-output pacing. Both sheaths were split, and the leads were secured to
the fascia with Ethibond ties.
The pocket was flushed with antibiotic solution and hemostasis was assured. The generator was connected to the leads and placed inside the pocket. The device was sutured to the fascia. Antibiotic envelope was used. Surgiflo was applied. The wound
was closed with 3 running layers of absorbable suture, and steri-strips were applied. Dressing applied over steri-strips in standard fashion.
Following the procedure, the patient was taken to the recovery area in stable condition. A chest x-ray to be obtained post procedure as routine.
Lead parameters and device programming:
- RA Lead (Medtronic, Model 5076, #[id number]): Sensing 1.4 mV, Pacing threshold 0.75 V at 0.4 ms, Imp 456 Ohm
- RV Lead (Medtronic, Model 3830, #[id number]): Sensing 3.6 mV, Pacing threshold 0.5 V at 0.4 ms, Imp 675 Ohm
- Device: Medtronic, Model W1DR01 pacemaker (#[id number]), programmed AAI-DDD, mode switch on, LRL 60 UTR 130
Conclusions:
1. Successful placement of a dual-chamber pacemaker with conduction system pacing (LBBAP)
2. Subclavian venography
Recommendations:
- Return to patient room
- Chest x-ray tonight, [facility] in AM.
- IV antibiotics while the patient is admitted.
- OK to resume home medications as indicated
- Pressure dressing to be removed in AM, aquacell to remain until wound check
- Follow-up will be arranged in the office in 7-10 days post-discharge for incision check
Fredi Garcia DO, FACC, RS
Clinical Cardiac Gasket Inspector
cc: Dr Anand Mercado, Dr Aron Alanis; Dr Tessy Epstein
[2024-10-03 15:07] LABS: Glucose - Point of Care 90 mg/dl (70-99)
[2024-10-03] MEDS: NOVOLIN R INSULIN INFUSION 100 IV ×2 (15:56→21:05)
[2024-10-03] MEDS: FERRLECIT 110 MG IV (16:02)
[2024-10-03] MEDS: TYLENOL PO (16:07)
[2024-10-03 18:04] LABS: Glucose - Point of Care 141 mg/dl (70-99)
[2024-10-03] MEDS: CRESTOR 40 MG PO (18:07)
--- NOTE | 2024-10-03 18:19 | PTCARENOTE ---
portable xray done post pacer placement.
[2024-10-03] MEDS: LOPRESSOR 12.5 MG PO (20:22)
[2024-10-03] MEDS: MYLICON 80 MG PO (20:22)
[2024-10-03 20:30] LABS: Glucose - Point of Care 191 mg/dl (70-99)
--- NOTE | 2024-10-03 20:30 | PTCARENOTE ---
Patient received sitting on edge of bed urinating in urinal bottle. Right arm sling off. Voided 100 ml yellow urine. Right arm sling placed back on arm. Patient encouraged to keep arm sling intact. Patient given CHG bath. Linens changed.
Patient assisted back to bed. Chest tube dressing changed. AV Wires remain insulated. Patient A+A+Ox3. No neurological deficits noted. Patient with no c/o headache, dizziness or lightheadedness. No c/o pain or discomfort. Room air. SpO2 98%.
Two Mediastinal chest tubes - Intact and patent - 20 ml serosanguineous drainage - No air leak. PPM. Heart rate 70's. Right anterior chest wall dressing intact. Normoactive bowel sounds. No BM. No c/o nausea. No vomiting. Patient with no
c/o back or flank pain. Sternal incision intact - Surgical adhesive - Open to air. Right groin puncture site intact. Right knee incision intact - Surgical adhesive - Open to air. Left arm radial graft site - Positive Ulnar pulse - Incision
intact - Surgical adhesive - Edema - Positive circulation, sensation and mobility to left upper extremity. Insulin gtt. Assessment as documented.
[2024-10-03 21:14] LABS: Glucose - Point of Care 203 mg/dl (70-99)
[2024-10-03 22:33] LABS: Glucose - Point of Care 158 mg/dl (70-99)
[2024-10-03] MEDS: PACERONE 200 MG PO (22:44)
[2024-10-04] VITALS (11 sets, daily range): BP systolic 97–139; BP diastolic 60–82; PULSE 70; O2SAT 98; BMI 22.5
--- NOTE | 2024-10-04 | PTCARENOTE ---
Patient sleeping without difficulty. No further changes from previous assessment.
[2024-10-04 00:20] LABS: Glucose - Point of Care 148 mg/dl (70-99)
[2024-10-04 01:59] LABS: Glucose - Point of Care 134 mg/dl (70-99)
--- NOTE | 2024-10-04 02:55 | W.PN.CT ---
Addendum entered and electronically signed by Dixon Avalos MD 10/04/24 09:13:
I saw and examined the patient.
The PA's note was reviewed and I agree with the note.
Comment:
POD#2 s/p CABG x 3
Doing well. No overnight events
D/C pacing wires
D/C CTs
UO: 525mL overnight - Creat 1.5 today (baseline 1.3) - light diuresis today
OOB/IS/ambulate
Original Note:
Today's Communication / Plan
-
-pod #2
-s/p pacer implant 10/03
-med CT output 70/130 in 12/24 hrs
-d/c pw and med CTs
-restart Plavix today per Dr. Harvey (ordered)
-continue Norvasc for radial graft.
-follow Cr- 1.5 today (baseline 1.3) and K- 5.0today
-current meds (ASA, Plavix, Crestor, Norvasc, Lopressor, Amio, Farxiga, Insulin, Protonix)
-encourage IS, OOB
Assessment / Plan
-
-s/p CABG x 3 (In situ ROE to LAD, Ao to left radial to OM, Ao to RSVG to RPDA); Open chest cardiopulmonary resuscitation with emergent placement of temporary ventricular pacing wire for asystole; LAAE [35 mm device] by Dr. Alanis on 10/02/24, pod #2
-s/p Successful placement of a Medtronic dual-chamber pacemaker with conduction system pacing (LBBAP) on 10/03/[address] Harvey
-intraop MAYA: LVEF preop was 55% although appeared very dyskinetic as he was in a junctional type rhythm. Following surgery his EF appeared to be normal at 60% with no specific regional wall motion abnormalities.
-Severe 3v CAD including 50-60% distal LM
-NSTEMI (peak trop 26.8)
-Complete heart block
-Family history of CAD at the age of 73
-LVEF 45-50%
-No significant valvular disease
-Hypertension
-Hyperlipidemia
-T2DM (hgb A1C 8.0)
-Mild Parkinson's disease/essential tremors, not on chronic medication
-Melanoma
-Non-smoker
-Preop bradycardia, Mobitz 1, CHB
-S/p Right inguinal herniorrhaphy
-S/p Right lithotripsy
-S/p Left upper extremity melanoma resection
-Incidental finding of L thyroid nodule - recommended non-emergent biopsy
-Acute postop blood loss anemia
-Acute postop atelectasis
-Acute postop hypovolemia with subsequent hypervolemia
Discussed patient care with: Nursing and Care Team
Subjective
-
Date of Service: October 04, 2024
Objective Data
-
PT 15.3 Sec (11.4-14.6) H 10/02/24 11:34
INR 1.16 10/02/24 11:34
APTT 123.6 Sec (23.4-35.0) H 10/02/24 05:08
Vital Signs
Vital Signs
Temp Pulse Resp BP Pulse Ox
97.6 F 76 16 122/69 96
10/03/24 22:40 10/04/24 00:22 10/03/24 23:15 10/04/24 00:22 10/04/24 00:22
CT Intake/Output/Weight
10/03/24 10/03/24 10/04/24
06:59 18:59 06:59
Intake Total 1001.5 / 2324.6 35.4 / 288.0 252.6 / 288.0
Output Total 590 / 1160 200 / 540 340 / 540
Balance 411.5 / 1164.6 -164.6 / -252.0 -87.4 / -252.0
SaO2: 96
Physical Exam
-
General: Awake and AOx3
Cardiovascular: Regular rate & rhythm, No Murmurs and No Rub
Respiratory: Decreased Breath Sounds
Sternum: Stable
Incision: Clean, Dry and Intact
Extremities: No Edema (+1 DPs b/l)
Abdomen: soft, nontender, nondistended, + decreased bowel sounds
Data Reviewed
-
Lab Results: Results Reviewed
Medications: Active Meds Reviewed
Chest X-Ray: Report Reviewed and Image Reviewed
ECG: Report Reviewed and Image Reviewed
[2024-10-04 03:05] LABS: Glucose - Point of Care 99 mg/dl (70-99)
[2024-10-04 04:08] LABS: Glucose - Point of Care 87 mg/dl (70-99)
[2024-10-04 05:10] LABS: Glucose - Point of Care 97 mg/dl (70-99)
[2024-10-04 05:45] LABS: Hematocrit 32.4 % (39.0-52.0); Hemoglobin 10.9 g/dL (13.0-18.0); Mean Corp Hgb Conc. 33.6 g/dL (33.0-37.0); Mean Corpuscular Hgb 30.5 pg (27.0-31.0); Mean Corpuscular Volume 90.8 fL (80.0-94.0); Mean Platelet Volume 12.8 fL (7.4-10.4); Platelet Count 154 10^3/uL (130-400); Red Blood Cell Count 3.57 10^6/uL (4.70-6.10); Red Cell Dist. Width 13.5 % (11.5-14.5)
[2024-10-04] MEDS: ANCEF 5 IV (05:56)
[2024-10-04] MEDS: TYLENOL 1000 MG PO ×3 (05:56→22:18)
--- NOTE | 2024-10-04 06:00 | ECGCV ---
<Mrianda Decker PA-C > notified of ECG critical value identified by electronic interpretation on ECG completed on <10/04/24>, at <0545>.
--- NOTE | 2024-10-04 06:00 | PTCARENOTE ---
Patient A+A+Ox3. No neurological deficits noted. AM lab work collected and sent. EKG completed. Portable CXR completed. Patient given CHG bath and linens changed. OOB to chair. Standing scale weight 71.1 kg. Assessment/Interventions as
documented.
[2024-10-04 06:06] LABS: Glucose - Point of Care 85 mg/dl (70-99)
[2024-10-04 06:14] LABS: Blood Urea Nitrogen 33 mg/dl (9-20); Carbon Dioxide 25 mmol/L (22-30); Chloride 107 mmol/L (98-107); Estimated Creatinine Clearance 46 ml/min; Glucose 102 mg/dl (70-99); Magnesium 2.1 mg/dl (1.6-2.3); Sodium 142 mmol/L (135-145); eGFR 49.77
[2024-10-04] MEDS: MYLICON 80 MG PO (06:22)
--- NOTE | 2024-10-04 07:50 | PTCARENOTE ---
Pt received from outgoing RN, pt oob in a chair POD 2 sp CABG, RA, VSS, POD 1 SP PPM AAI-DDD Rcw pressure dressing removed this AM aquacel dressing cdi. Pt c/o no pain, MSCT x2 in place, Insulin gtt till later this morning.
[2024-10-04 08:16] LABS: Glucose - Point of Care 105 mg/dl (70-99)
[2024-10-04] MEDS: LOW STRENGTH ASPIRIN 81 MG PO (08:16)
[2024-10-04] MEDS: NOVOLOG FLEXPEN 4 UNITS SC (08:16)
[2024-10-04] MEDS: NORVASC 2.5 MG PO (08:16)
[2024-10-04] MEDS: FARXIGA 10 MG PO (08:17)
[2024-10-04] MEDS: SENOKOT-S 1 TABLET PO ×2 (08:17→20:28)
[2024-10-04] MEDS: PLAVIX 75 MG PO (08:17)
[2024-10-04] MEDS: NEURONTIN 100 MG PO ×3 (08:17→22:17)
[2024-10-04] MEDS: MAGNESIUM OXIDE 500 MG PO ×2 (08:17→20:28)
[2024-10-04] MEDS: PACERONE 200 MG PO ×3 (08:17→22:17)
[2024-10-04] MEDS: PROTONIX 40 MG PO (08:17)
[2024-10-04] MEDS: GLUCOPHAGE 1000 MG PO ×2 (08:17→17:19)
[2024-10-04] MEDS: BACTROBAN 2% OINTMENT 1 APPLIC NASAL ×2 (08:18→20:28)
[2024-10-04] MEDS: LOPRESSOR 12.5 MG PO ×2 (08:28→20:28)
[2024-10-04 10:32] LABS: Glucose - Point of Care 205 mg/dl (70-99)
[2024-10-04] MEDS: LASIX 20 MG IV (10:41)
[2024-10-04] MEDS: NSS IV (10:41)
[2024-10-04] MEDS: LANTUS 0.14 UNITS SC (11:00)
--- NOTE | 2024-10-04 11:41 | PTCARENOTE ---
pt reassessment unchanged from previous, dced insulin gtt @ 1200, lantus 14 units @ 1100. Dc ct and wires later today, continue to ambulate with nursing staff.
--- NOTE | 2024-10-04 11:52 | W.PN.CARDCBS ---
Today's Communication / Plan
-
Doing well overall after coronary artery bypass grafting surgery and permanent pacemaker implantation, continue current management
Impression / Plan
-
Noe is a 68-year-old gentleman with past medical history of hypertension, hyperlipidemia, ozh-brjuwqs-ttwzmniim type 2 diabetes mellitus, mild Parkinson's disease not on chronic medications, non-smoker, prior hernia surgery, melanoma who
presented to ED 09/28/2024 with off-and-on substernal chest discomfort that started Sunday going into Sunday after using a rowing machine. He has newly started using the rowing machine for aerobic exercise and has used this 4 times over the last 3
weeks. He did his normal rowing on Sunday and later that day started appreciating some substernal chest discomfort that he was not sure was potentially related to gas pain given he also had a large [place] meal around similar timing. He then at
some point also noted very mild right jaw pain which made him concerned that it may be cardiac in nature and therefore he presented to the emergency room for evaluation. He received 2 sublingual nitroglycerin in the emergency room and became chest
pain-free he tells me. He has ongoing ' acid reflux' in his abdominal region which was concerning for the emergency room for ongoing cardiac pain and therefore patient was activated as a high risk NSTEMI. He was given full dose aspirin along with
unfractionated heparin and 2 sublingual nitro's in the emergency room. ECG showed sinus rhythm with Q waves inferiorly and posteriorly with nonspecific ST-T wave changes, not meeting STEMI criteria. Initial troponin I was elevated at 20.
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
PCP: Anand Mercado
Impression:
NSTEMI
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
s/p asystole with cardiovascular collapse requiring open chest cardiopulmonary resuscitation and emergent placement of temp V wire
ICM, EF 45-50% by echo 09/28/24
Hypertension
Hyperlipidemia
War-joveuhn-ajnxwneuz type 2 diabetes mellitus
Mild Parkinson's disease, not on chronic medication
Melanoma
Non-smoker
Prior hernia repair
Retired
Family history of CAD at the age of 73
Left heart cath 09/28/2024:
Left main: 56% mid to distal disease
LAD: Proximal to mid LAD 7075% stenosis with distal LAD good bypass target, robust [id number] collaterals
Left circumflex: Mid left circumflex 80 to 85% stenosis. Proximal OM1 diffuse 50 to 60% stenosis. Distal OM good bypass target.
RCA: 100% proximal RCA STEEL DIVISION SUPERVISOR with robust [id number]-he-[id number] collaterals
ECHO 09/28/24: EF 45 to 50%, hypokinesis of inferior wall and basal inferolateral akinesis, mild septal hypertrophy, stage I diastolic dysfunction, mild MR
Plan:
He presented with chest pain and ruled in for NSTEMI with peak troponin of 26.8. Cath on 09/28 showed multivessel CAD and underwent CABG 10/02/2024
Preoperatively patient was noted to have varying degrees of av block, initially felt to be secondary to toprol administration however continued even after stopping medication.
Patient underwent CABG x 3 (in situ ROE to LAD, AO to left radial to OM, AO to R SVG to RPDA) and SANTOSH clip on 10/02/2024. During procedure, prior to going on pump, patient had asystole with cardiovascular collapse. He underwent open chest
cardiopulmonary resuscitation with emergent placement of a temporary V wire
Progressive and symptomatic heart block
Underwent implantation of Medtronic dual-chamber permanent pacemaker (conduction system pacing via left bundle branch engagement) on October 03, 2024
Multivessel coronary artery disease with non-ST segment elevation myocardial infarction
Underwent CABG x 3 (in situ ROE to LAD, AO to left radial to OM, AO to R SVG to RPDA)
He also underwent left atrial appendage clipping during this procedure
ECG on 10/04/2024 finds sinus rhythm with first-degree AV delay, inferior infarct subacute and diffuse ST segment elevations suggestive of pericarditis
Hemodynamically stable, off of pressors.
Non-ST segment elevation myocardial infarction
Plavix has been resumed. He is also on aspirin 81 mg daily. He is also on metoprolol tartrate 12.5 mg twice daily. Maintain rosuvastatin 40 mg daily.
Heart failure with mildly reduced ejection fraction
Infarct based with hypokinesis of the inferior and basal inferolateral ace
Has since been revascularized
Resume RHIANNON inhibitor when able
Currently on metoprolol tartrate 12.5 mg twice daily, eventually switched to metoprolol succinate
Jardiance 10 mg daily has been resumed
Hypertension
Amlodipine 5 mg daily has been resumed
Progress Note - Rn Orthopaedic
Subjective
Date of Service: October 04, 2024
He tells me he feels well. No chest pain or shortness of breath.
Objective
Labs:
10/04/24 05:30
10/04/24 05:30
Labs
Hgb 10.9 g/dL (13.0-18.0) L 10/04/24 05:30
Hct 32.4 % (39.0-52.0) L 10/04/24 05:30
Plt Count 154 10^3/uL (130-400) 10/04/24 05:30
PT 15.3 Sec (11.4-14.6) H 10/02/24 11:34
INR 1.16 10/02/24 11:34
APTT 123.6 Sec (23.4-35.0) H 10/02/24 05:08
Sodium 142 mmol/L (135-145) 10/04/24 05:30
Potassium 5.0 mmol/L (3.5-5.1) 10/04/24 05:30
BUN 33 mg/dl (9-20) H 10/04/24 05:30
Creatinine 1.5 mg/dL (0.7-1.3) H 10/04/24 05:30
Glucose 102 mg/dl (70-99) H 10/04/24 05:30
Vital Signs and I&O:
Vital Signs
Temp Pulse Resp BP Pulse Ox
97.9 F 74 18 139/64 99
10/04/24 11:00 10/04/24 11:30 10/04/24 07:54 10/04/24 11:02 10/04/24 11:00
Vital Signs
Temp Pulse Resp BP Pulse Ox
97.9 F 74 18 139/64 99
10/04/24 11:00 10/04/24 11:30 10/04/24 07:54 10/04/24 11:02 10/04/24 11:00
Intake & Output
10/02/24 10/03/24 10/04/24 10/05/24
06:59 06:59 06:59 06:59
Intake Total 720 / 720 2324.6 / 2324.6 535.1 / 535.1 120.4 / 120.4
Output Total 870 / 870 1160 / 1160 795 / 795
Balance -150 / -150 1164.6 / 1164.6 -259.9 / -259.9 110.4 / 110.4
Physical Exam
Physical Exam
Well-appearing no acute distress
Heart regular rate and rhythm normal S1 and S2, no S3 no S4 grade 1/6 apical holosystolic murmur no rubs
Lungs clear to auscultation bilaterally without wheezes rales or rhonchi
Extremities no clubbing cyanosis or edema
Pacemaker implantation site is clean and dry dressing
[2024-10-04 12:03] LABS: Glucose - Point of Care 227 mg/dl (70-99)
[2024-10-04] MEDS: NOVOLOG FLEXPEN-LOW RESISTANCE 2 UNITS SC (12:03)
[2024-10-04] MEDS: NOVOLOG FLEXPEN SC (12:03)
--- NOTE | 2024-10-04 12:23 | PTCARENOTE ---
ANN dced by Ozzie SWAIN
[2024-10-04] MEDS: FERRLECIT 110 MG IV (14:48)
--- NOTE | 2024-10-04 15:50 | PTCARENOTE ---
pt reassessment unchanged from previous, vss, ra, nsr, PIV x2, MSCT dced, IS, ambulating
[2024-10-04 17:19] LABS: Glucose - Point of Care 294 mg/dl (70-99)
[2024-10-04] MEDS: NOVOLOG FLEXPEN-LOW RESISTANCE 3 UNITS SC (17:19)
[2024-10-04] MEDS: CRESTOR 40 MG PO (17:20)
--- NOTE | 2024-10-04 21:00 | PTCARENOTE ---
Patient received OOB in chair. Patient A+A+Ox3. No neurological deficits noted. Patient walked entire unit CVICU/IVU loop without difficulty. Sternal precautions. No c/o pain or discomfort. No c/o SOB. Room air. SpO2 98%. Sinus Rhythm with
First Degree AV Block. Occasional PAC. Occasional A spike noted. Permanent Pacemaker - Right anterior chest wall site - Aquacell dressing intact - AAI-DDD 60-130. Patient with no c/o chest pain, pressure or discomfort. Normoactive bowel sounds.
No BM. No c/o indigestion. No c/o nausea. No vomiting. Voiding without difficulty. Sternal incision intact. Right groin puncture site intact. Right knee incision intact. Positive palpable pulses. Left arm radial graft site - Incision
intact - edema - Positive Ulnar pulse - Positive circulation, sensation and mobility to left upper extremity. Assessment as documented.
[2024-10-04 22:25] LABS: Glucose - Point of Care 161 mg/dl (70-99)
--- NOTE | 2024-10-04 23:00 | PTCARENOTE ---
Patient resting in bed. No c/o pain or discomfort. Voided 250 ml. Accucheck result 161. Assessment as documented.
[2024-10-05] VITALS (8 sets, daily range): BP systolic 105–114; BP diastolic 58–70; BMI 22.4
[2024-10-05 03:59] LABS: Hematocrit 31.1 % (39.0-52.0); Hemoglobin 10.9 g/dL (13.0-18.0); Mean Corpuscular Hgb 31.2 pg (27.0-31.0); Mean Corpuscular Volume 89.1 fL (80.0-94.0); Mean Platelet Volume 12.3 fL (7.4-10.4); Platelet Count 170 10^3/uL (130-400); Red Blood Cell Count 3.49 10^6/uL (4.70-6.10); Red Cell Dist. Width 13.3 % (11.5-14.5); White Blood Cell Count 11.4 10^3/uL (4.8-10.8)
--- NOTE | 2024-10-05 04:15 | PTCARENOTE ---
Patient A+A+Ox3. No neurological deficits noted. Patient voided 200 ml. AM lab work collected and sent. Patient given CHG bath and linens changed. Chest tube dressing changed. Patient back to sleep. Assessment/Interventions as documented.
[2024-10-05 04:18] LABS: Blood Urea Nitrogen 43 mg/dl (9-20); Calcium 9.1 mg/dl (8.4-10.2); Carbon Dioxide 27 mmol/L (22-30); Chloride 105 mmol/L (98-107); Estimated Creatinine Clearance 49 ml/min; Glucose 151 mg/dl (70-99); Potassium 4.5 mmol/L (3.5-5.1); Sodium 138 mmol/L (135-145); eGFR 54.07
--- NOTE | 2024-10-05 05:02 | W.PN.CT ---
Addendum entered and electronically signed by Dixon Avalos MD 10/05/24 09:12:
I saw and examined the patient.
The PA's note was reviewed and I agree with the note.
Comment:
POD#3 s/p CABG x 3; ELAA; POD#2 s/p PPM
No major overnight events.
Creat down to 1.4 (baseline 1.3) - continue diuresis (20mg PO lasix)
D/C cordis
ASA/plavix/norvasc
OOB/IS/ambulate
Likely home tomorrow
Original Note:
Today's Communication / Plan
-
-pod #3
-s/p pacer implant 10/03
-continue Norvasc for radial graft.
-follow Cr- 1.4 today (baseline 1.3) and K- 4.5 today (5.0 yesterday)
- gentle diuresis
-current meds (ASA, Plavix, Crestor, Norvasc, Lopressor, Amio, Farxiga, Insulin, Protonix)
-encourage IS, OOB
Assessment / Plan
-
-s/p CABG x 3 (In situ ROE to LAD, Ao to left radial to OM, Ao to RSVG to RPDA); Open chest cardiopulmonary resuscitation with emergent placement of temporary ventricular pacing wire for asystole; LAAE [35 mm device] by Dr. Alanis, pod #3
-s/p Successful placement of a Medtronic dual-chamber pacemaker with conduction system pacing (LBBAP) on 10/03/[address] Harvey, pod #2
-intraop MAYA: LVEF preop was 55% although appeared very dyskinetic as he was in a junctional type rhythm. Following surgery his EF appeared to be normal at 60% with no specific regional wall motion abnormalities.
-Severe 3v CAD including 50-60% distal LM
-NSTEMI (peak trop 26.8)
-Complete heart block
-Family history of CAD at the age of 73
-LVEF 45-50%
-No significant valvular disease
-Hypertension
-Hyperlipidemia
-T2DM (hgb A1C 8.0)
-Mild Parkinson's disease/essential tremors, not on chronic medication
-Melanoma
-Non-smoker
-Preop bradycardia, Mobitz 1, CHB
-S/p Right inguinal herniorrhaphy
-S/p Right lithotripsy
-S/p Left upper extremity melanoma resection
-Incidental finding of L thyroid nodule - recommended non-emergent biopsy
-Acute postop blood loss anemia
-Acute postop atelectasis
-Acute postop hypovolemia with subsequent hypervolemia
Subjective
Procedure
-s/p CABG x 3 (In situ ROE to LAD, Ao to left radial to OM, Ao to RSVG to RPDA); Open chest cardiopulmonary resuscitation with emergent placement of temporary ventricular pacing wire for asystole; LAAE [35 mm device] by Dr. Alanis on 10/02/24
-s/p Successful placement of a Medtronic dual-chamber pacemaker with conduction system pacing (LBBAP) on 10/03/[address] Harvey
-
Date of Service: October 05, 2024
Objective Data
-
Lab Results
10/05/24 03:44
10/05/24 03:44
PT 15.3 Sec (11.4-14.6) H 10/02/24 11:34
INR 1.16 10/02/24 11:34
APTT 123.6 Sec (23.4-35.0) H 10/02/24 05:08
Vital Signs
Vital Signs
Temp Pulse Resp BP Pulse Ox
98.1 F 74 16 105/58 98
10/05/24 03:30 10/05/24 04:07 10/05/24 03:30 10/05/24 03:30 10/05/24 03:30
CT Intake/Output/Weight
10/04/24 10/04/24 10/05/24
06:59 18:59 06:59
Intake Total 499.7 / 535.1 255.4 / 495.4 240 / 495.4
Output Total 595 / 795 1120 / 1670 550 / 1670
Balance -95.3 / -259.9 -864.6 / -1174.6 -310 / -1174.6
SaO2: 98
Physical Exam
-
General: AOx3
Cardiovascular: Regular rate & rhythm
Respiratory: Decreased Breath Sounds
Sternum: Stable
Incision: Clean, Dry and Intact
Extremities: No Edema
[2024-10-05] MEDS: TYLENOL PO (06:00)
[2024-10-05] MEDS: FARXIGA 10 MG PO (08:02)
[2024-10-05] MEDS: SENOKOT-S 1 TABLET PO ×2 (08:02→19:54)
[2024-10-05] MEDS: PROTONIX 40 MG PO (08:02)
[2024-10-05] MEDS: MAGNESIUM OXIDE 500 MG PO ×2 (08:02→20:09)
[2024-10-05] MEDS: GLUCOPHAGE 1000 MG PO ×2 (08:02→17:28)
[2024-10-05] MEDS: NEURONTIN 100 MG PO ×3 (08:02→22:06)
[2024-10-05] MEDS: PLAVIX 75 MG PO (08:03)
[2024-10-05] MEDS: LOW STRENGTH ASPIRIN 81 MG PO (08:03)
[2024-10-05 08:06] LABS: Glucose - Point of Care 159 mg/dl (70-99)
[2024-10-05] MEDS: PACERONE 200 MG PO ×3 (08:09→22:06)
[2024-10-05] MEDS: LOPRESSOR 12.5 MG PO ×2 (08:09→19:54)
[2024-10-05] MEDS: LANTUS 0.14 UNITS SC (08:10)
[2024-10-05] MEDS: NORVASC 2.5 MG PO (08:10)
[2024-10-05] MEDS: BACTROBAN 2% OINTMENT 1 APPLIC NASAL ×2 (08:12→20:11)
[2024-10-05] MEDS: NOVOLOG FLEXPEN-LOW RESISTANCE 1 UNITS SC ×2 (08:13→18:24)
--- NOTE | 2024-10-05 09:59 | PTCARENOTE ---
Received patient for 7a-7p shift. Pt AAOx3, without complaints. NSR on hospital monitor, VSS. Pt ambulatory in room and toscano without assistance. Tolerating PO intake, voiding without issues. +BM today. Patient denies pain at this time, BG 159
medications administered as ordered. Educated patient on sternal and fall precautions, patient verbalized understanding. Will continue to monitor.
[2024-10-05] MEDS: KCL 10 MEQ PO (11:19)
[2024-10-05] MEDS: LASIX 20 MG PO (11:19)
[2024-10-05] MEDS: NSS IV (12:13)
[2024-10-05 12:36] LABS: Glucose - Point of Care 219 mg/dl (70-99)
[2024-10-05] MEDS: NOVOLOG FLEXPEN-LOW RESISTANCE 2 UNITS SC (12:36)
--- NOTE | 2024-10-05 13:03 | PTCARENOTE ---
Patient reassessed, assessment unchanged from previous. Blood glucose 219- insulin administered per sliding scale. VSS, NSR on clocksmith. Pt ambulatory in toscano without assistance. Will continue to monitor.
[2024-10-05] MEDS: TYLENOL 1000 MG PO ×2 (14:56→22:06)
[2024-10-05] MEDS: FERRLECIT 110 MG IV (14:56)
--- NOTE | 2024-10-05 16:23 | PTCARENOTE ---
Patient reassessed, assessment unchanged from previous. VSS, SR with occasional a-pacing on cafeteria monitor. Medications administered as ordered. Patient ambulatory in room and toscano without assistance. Will continue to monitor.
[2024-10-05] MEDS: CRESTOR 40 MG PO (17:28)
[2024-10-05 18:24] LABS: Glucose - Point of Care 197 mg/dl (70-99)
--- NOTE | 2024-10-05 20:00 | PTCARENOTE ---
Assumed care of patient at 1900. Patient found oob in chair at time of assessment. Patient is AOx4, follows commands appropriately, moves all extremities. Lung sounds are diminished in the bases, saO2 99% on RA. Heart sounds are audible, patient is
SR 1st deg AV block on the monitor with occasional A pacing. Patient has normal palpable R radial, L ulnar and weak but palpable dorsalis pedis pulses. Trace edema present in the bilateral lower extremities. Patient has active BS throughout, reports
+BM during the day, voiding clear yellow in the bathroom. There is a sternal incision approx with surg adhesive CAREER AND GUIDANCE COUNSELOR, R upper chest incision with aquacell dressing that is CDI, L arm incision approx with surg adhesive CAREER AND GUIDANCE COUNSELOR, R groin puncture approx
with surg adhesive CAREER AND GUIDANCE COUNSELOR, RLE incision approx with surg adhesive CAREER AND GUIDANCE COUNSELOR, and ABD dressing over CT wounds that is CDI. Patient has 2xPIV 20G in the R arm. No c/o pain. Call matos within reach.
[2024-10-05 22:02] LABS: Glucose - Point of Care 177 mg/dl (70-99)
[2024-10-06] VITALS (7 sets, daily range): BP systolic 103–142; BP diastolic 54–87; PULSE 80; O2SAT 100; BMI 22.5
--- NOTE | 2024-10-06 | PTCARENOTE ---
Patient reassessed. Remains SR with first deg AV block occasional A pacing. VSS. No c/o pain. Call matos within reach.
[2024-10-06 03:17] LABS: Hematocrit 29.1 % (39.0-52.0); Hemoglobin 10.2 g/dL (13.0-18.0); Mean Corp Hgb Conc. 35.1 g/dL (33.0-37.0); Mean Corpuscular Hgb 31.4 pg (27.0-31.0); Mean Corpuscular Volume 89.5 fL (80.0-94.0); Mean Platelet Volume 12.5 fL (7.4-10.4); Platelet Count 179 10^3/uL (130-400); Red Blood Cell Count 3.25 10^6/uL (4.70-6.10); Red Cell Dist. Width 13.2 % (11.5-14.5); White Blood Cell Count 9.4 10^3/uL (4.8-10.8)
[2024-10-06 03:43] LABS: Blood Urea Nitrogen 54 mg/dl (9-20); Calcium 8.9 mg/dl (8.4-10.2); Carbon Dioxide 26 mmol/L (22-30); Chloride 101 mmol/L (98-107); Estimated Creatinine Clearance 46 ml/min; Glucose 148 mg/dl (70-99); Magnesium 2.3 mg/dl (1.6-2.3); Potassium 4.7 mmol/L (3.5-5.1); Sodium 135 mmol/L (135-145); eGFR 49.77
--- NOTE | 2024-10-06 04:13 | W.PN.CT ---
Today's Communication / Plan
-
-pod #4
-s/p pacer implant 10/03
-continue Norvasc for radial graft.
-follow Cr- 1.5 today, stable (baseline 1.3)
- gentle diuresis
-current meds (ASA, Plavix, Crestor, Norvasc, Lopressor, Amio, Farxiga, Insulin, Protonix)
-encourage IS, OOB
-discharge planning.
Assessment / Plan
-
-s/p CABG x 3 (In situ ROE to LAD, Ao to left radial to OM, Ao to RSVG to RPDA); Open chest cardiopulmonary resuscitation with emergent placement of temporary ventricular pacing wire for asystole; LAAE [35 mm device] by Dr. Alanis, pod #3
-s/p Successful placement of a Medtronic dual-chamber pacemaker with conduction system pacing (LBBAP) on 10/03/[address] Harevy, pod #4
-intraop MAYA: LVEF preop was 55% although appeared very dyskinetic as he was in a junctional type rhythm. Following surgery his EF appeared to be normal at 60% with no specific regional wall motion abnormalities.
-Severe 3v CAD including 50-60% distal LM
-NSTEMI (peak trop 26.8)
-Complete heart block
-Family history of CAD at the age of 73
-LVEF 45-50%
-No significant valvular disease
-Hypertension
-Hyperlipidemia
-T2DM (hgb A1C 8.0)
-Mild Parkinson's disease/essential tremors, not on chronic medication
-Melanoma
-Non-smoker
-Preop bradycardia, Mobitz 1, CHB
-S/p Right inguinal herniorrhaphy
-S/p Right lithotripsy
-S/p Left upper extremity melanoma resection
-Incidental finding of L thyroid nodule - recommended non-emergent biopsy
-Acute postop blood loss anemia
-Acute postop atelectasis
-Acute postop hypovolemia with subsequent hypervolemia
Subjective
Procedure
-s/p CABG x 3 (In situ ROE to LAD, Ao to left radial to OM, Ao to RSVG to RPDA); Open chest cardiopulmonary resuscitation with emergent placement of temporary ventricular pacing wire for asystole; LAAE [35 mm device] by Dr. Alanis on 10/02/24
-s/p Successful placement of a Medtronic dual-chamber pacemaker with conduction system pacing (LBBAP) on 10/03/[address] Harvey
-
Date of Service: October 06, 2024
Objective Data
-
Lab Results
10/06/24 02:46
10/06/24 02:46
PT 15.3 Sec (11.4-14.6) H 10/02/24 11:34
INR 1.16 10/02/24 11:34
APTT 123.6 Sec (23.4-35.0) H 10/02/24 05:08
Vital Signs
Vital Signs
Temp Pulse Resp BP Pulse Ox
97.6 F 60 20 106/54 97
10/06/24 03:00 10/06/24 04:00 10/06/24 03:00 10/06/24 02:35 10/06/24 03:00
CT Intake/Output/Weight
10/05/24 10/05/24 10/06/24
06:59 18:59 06:59
Intake Total 480 / 735.4 580 / 580
Output Total 750 / 1870
Balance -270 / -1134.6 580 / 580
SaO2: 97
Physical Exam
-
General: AOx3
Cardiovascular: Regular rate & rhythm
Respiratory: Clear
Sternum: Stable
Incision: Clean, Dry and Intact
Extremities: No Edema
--- NOTE | 2024-10-06 04:18 | PTCARENOTE ---
Patient reassessed. Patient now primarily a paced with runs of SR first deg AV block. Remains asymptomatic with HR at 60. AM labs and weight obtained. All other VSS. Call blel within reach.
[2024-10-06] MEDS: TYLENOL 1000 MG PO ×2 (07:19→15:08)
[2024-10-06] MEDS: NOVOLOG FLEXPEN-LOW RESISTANCE SC (08:11)
[2024-10-06 08:13] LABS: Glucose - Point of Care 141 mg/dl (70-99)
[2024-10-06] MEDS: LANTUS 0.14 UNITS SC (08:18)
[2024-10-06] MEDS: BACTROBAN 2% OINTMENT 1 APPLIC NASAL (08:18)
[2024-10-06] MEDS: SENOKOT-S PO ×2 (08:19→08:28)
[2024-10-06] MEDS: PLAVIX 75 MG PO (08:19)
[2024-10-06] MEDS: PACERONE 200 MG PO ×2 (08:19→15:08)
[2024-10-06] MEDS: MAGNESIUM OXIDE 500 MG PO (08:19)
[2024-10-06] MEDS: LOW STRENGTH ASPIRIN 81 MG PO (08:19)
[2024-10-06] MEDS: NORVASC 2.5 MG PO (08:19)
[2024-10-06] MEDS: FARXIGA 10 MG PO (08:19)
[2024-10-06] MEDS: PROTONIX 40 MG PO (08:19)
[2024-10-06] MEDS: NEURONTIN 100 MG PO ×2 (08:19→15:08)
--- NOTE | 2024-10-06 08:39 | W.DCSUMMARY ---
Addendum entered and electronically signed by HALEY Conrad 10/08/24 12:56:
CDI QUERY RESPONSE
Acute on chronic
Addendum entered and electronically signed by HALEY Conrad 10/07/24 12:49:
CDI QUERY RESPONSE
HFimpEF (pre-op 45%>post-op 50%)
Original Note:
Discharge Summary
Discharge Data
Date of Admission: 09/28/24
Date of Discharge: 10/06/24
-
Pending Results: No
Hospital Course
Primary care physician: Anand Mercado
Outpatient equipment operating engineer: Tessy Epstein
Inpatient consultants: [facility], pulmonary strap cutter, diabetes nurse practitioner, diabetes nurse educator
Procedures:
1. CABG, left atrial appendage clip
Primary Diagnosis:
1. NSTEMI, multivessel coronary disease
Secondary Diagnoses:
1. Pre-op MobitzI, Complete heart block
2. Cardiovascular collapse secondary to asystole
3. Hypertension
4. Mild Parkinson's disease/essential tremors, not on chronic medication
5. Diabetes mellitus (A1c 8.0)
6. Hyperlipidemia
7. History of kidney stones with lithotripsy
8. History of right inguinal hernia and repair
9. Incidental finding of left thyroid nodule
10. Acute postoperative hyperkalemia
11. History of left upper extremity melanoma resection
12. Acute postop blood loss anemia
13. CKD 3a (GFR 49)
14. Postoperative hypotension�expected
HPI: 68-year-old male was admitted 09/26/2024 with 2-day history of substernal pressure and ruled in for NSTEMI.
Hospital course: Left heart cath reported triple-vessel coronary disease. On 09/30, patient developed Mobitz type I and then episode of brief complete heart block later in the evening. No transvenous pacer was required preop. Patient was taken to
the OR on 10/02/2024 and underwent CABG x 3 (ROE�LAD, (left) radial/OM, SVG�RPDA, left atrial appendage exclusion #[address] Aron Alanis. While harvesting, patient went asystolic and had cardiovascular collapse requiring brief CPR and
transvenous pacing. Please see operative report for further details. Post procedure MAYA reported an EF of 50% with mild MR/TR. Patient required no intraoperative blood products and returned to CVICU on Levophed, insulin and Precedex. Patient was
extubated at 1355, the day of surgery. Levophed was discontinued at 0300 on postoperative day #1. Patient received 1 dose of Lokelma for potassium level of 5.2. Left pleural chest tube was removed and patient received a Medtronic dual-chamber
pacer with LBBAP capability. Norvasc was initiated for radial graft patency and beta-harry plus prophylactic amiodarone resumed. Patient was evaluated by the diabetic nurse practitioner and transitioned off insulin on postoperative day #2.
Temporary epicardial pacing wires and chest tubes were removed. Patient was diuresed on postoperative day #2 and 3. Creatinine ranged from 1.4�1.5 with baseline of 1.3. Right IJ cordis was removed on postoperative day #3. Postoperative day 4,
patient ambulated in halls without assistance. He completed steps with cardiac rehab. Hemoglobin 10.2, creatinine 1.5, and potassium 4.7 on day of discharge. Patient will require Norvasc for radial graft patency x 1 month. Patient seen by
diabetic nurse educator for insulin instruction. Patient was informed of an incidental left thyroid nodule identified during carotid ultrasound with recommendations for nonemergent biopsy as outpatient. Patient require a follow-up BMP in 1 week to
assess creatinine trend. He will be followed by the transitional nurse team.
Home medication changes:
Norvasc 5 mg decreased to 2.5 mg postoperative due to low blood pressure
Benazepril discontinued due to low blood pressure
Jardiance dose increased from 10 to 25 mg daily
See below for new meds
Discharge Plan
-
Patient Disposition: Home (Routine Discharge)
Discharge Diagnosis/Procedures: CABG x 3, Medtronic Pacemaker implant
Condition: Good
Diet: Low Cholesterol and Low Sodium
Activity: No strenuous activity
Driving Restrictions: No driving for 1 week
Bathing Restrictions: OK to Shower
Blood Work: BMP in 1 week
Other Services: Cardiac Rehab
Specialty Instructions: Weigh Daily- Call MD for wt gain/loss 3 lbs overnight/5 lbs in 1 week
Stand Alone Forms: [facility] - Implanted Device
Referrals:
[facility] [Provider Group] - 10/09/24 1:00 pm (Pacemaker incision check appointment)
[facility] Transitional Care Nurse [Outside] (The Cardiothoracic Transitional Care Nurse will call you to set up a visit in 1-2 days.)
[facility] [Outside]
(Cardiac Rehab Orientation appointment is on Sunday11/03/2024@ 1:00pm.
The Cardiac Rehab gym is located on the first floor of the [facility].)
Shiv Zimmerman MD [Active] - 11/11/24 8:40 am
Anand Mercado DO [Family Provider] -
Aron Alanis MD [Active] - 10/29/24 11:00 am
Prescriptions:
New
clopidogrel 75 mg Tablet
75 mg PO DAILY Qty: 30 2RF
amlodipine 2.5 mg Tablet
2.5 mg PO DAILY Qty: 30 1RF
aspirin 81 mg Tablet,Chewable
81 mg PO DAILY Qty: 0 0RF
rosuvastatin 40 mg Tablet
40 mg PO QPM Qty: 30 2RF
acetaminophen 325 mg Tablet
650 mg PO Q4HPRN PRN (Reason: mild pain,headache,temp >101F ) Qty: 0 0RF
oxycodone 5 mg Tablet
5 mg PO Q4HPRN PRN (Reason: severe pain) Qty: 10 0RF
pantoprazole 40 mg Tablet,Delayed Release (Dr/Ec)
40 mg PO DAILY Qty: 30 2RF
gabapentin 100 mg Capsule
100 mg PO TID Qty: 30 0RF
metformin 1,000 mg Tablet
1,000 mg PO BID@0800,1700 Qty: 60 2RF
Jardiance 25 mg tablet
25 mg PO DAILY Qty: 30 2RF
insulin glargine [Lantus Solostar U-100 Insulin] 100 unit/mL (3 mL) insulin pen
16 unit SC QPM Qty: 15 2RF
metoprolol succinate [Toprol XL] 25 mg tablet extended release 24 hr
25 mg PO DAILY Qty: 30 2RF
(DME) pen needle, diabetic [Cyala 2nd Gen Pen Needle] 32 gauge x 5/32' Needle
Qty: 90 0RF
Rx Instructions:
Pt taking insulin daily
Discontinued
metformin 500 MG tablet
500 mg PO BID
benazepril [Lotensin] 5 MG tablet
5 mg PO DAILY
Jardiance 10 mg Tablet
10 mg PO DAILY
amlodipine 5 mg Tablet
5 mg PO DAILY
Discharge Orders:
Discharge Patient (As Directed); Ordered 10/06/24
Ordered By: Racheal Moraes
Care Plan Goals
Care Plan Goals:
Problem: Readiness for enhanced knowledge related to diagnosis and treatment plan
Goal: Understand your diagnosis and treatment plan needs, including medications if applicable.
Instructions: Know your diagnosis, underlying causes and treatment plan options, including medications if applicable. Consult with your health care team to learn about your diagnosis and treatment plan, including medications if applicable.
Discharge Date and Time
Print Language: JORDANIAN
--- NOTE | 2024-10-06 08:45 | PTCARENOTE ---
Assumed care of patient at 0700. Pt is awake, alert, and oriented. No complaints of pain. Pt ambulating independently. Pt remains SR with first degree AV block with occasional A pacing. HR 70's. BP 103/59 MAP 71. Pt with PPM. Pulse oximetry 98% on
room air. Pt achieving 1500with IS. Pt tolerating PO diet. Voiding without issue. Midsternal incision approximated and INSPECTOR METAL FABRICATING. Right leg incision and right groin incision approximated and CHRISTIN. Left radial site approximated and INSPECTOR METAL FABRICATING. Right upper chest
with post-surgical dressing in place. Pt currently OOB in chair with call matos within reach.
--- NOTE | 2024-10-06 08:48 | PN.DE.MGMTRT ---
Insulin Management
- -
10/06/2024: Diabetes Management Follow up
68 year old male with PMH: HTN, HLD, NIDDM, Mild Parkinson's disease, not on chronic medication, Melanoma
Patient presented to the ED on with substernal chest discomfort relieved with sublingual nitroglycerin. Troponin initially 20.2 and he was taken urgently for cardiac catheterization as high risk NSTEMI which revealed multivessel CAD.
Pt under went CABG x 3-ROE-LAD, AO to left radial to OM, AO to RSVG to RPDA, open chest CPR with emergent placement temporary pacing wires for asystole.
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 He dose not monitor his blood sugars at home. A1C 8.0%, Cr 1.3, eGFR 59.10.
Pt was started on glycemic protocol for optimal glucose control x48 hrs post-operatively.
Pt awake, alert, oriented, sitting up in chair, offers no complaints, very anxious and jittery, but able to discuss diabetes management
Transitioned off insulin infusion on 10/04 to SQ insulin and oral agents. Cr 1.5, baseline 1.3.
Discussed current A1C and emphasized importance of optimal glucose control to promote surgical incision wound healing.
Pt was agreeable to Lantus daily. HS glucose was 177, pt received Lantus 10 units @ HS, FBG 148 V, 146 POC
Will increase Lantus dose to 16 units. Cont oral agents Metformin 1000 mg BID and Farxiga 10mg.
Pt was taking Jardiance 10mg daily at home, increase dose to 25mg daily at discharge.
Diabetes RN Educator will see pt today to provide glucose monitor and insulin instructions. around 1:30 when his comes o the hospital
Meds at discharge: Lantus 16 units Jardiance 25mg daily and Metformin 1000 mg BID
Diabetes History
- -
Type of Diabetes: 2 requiring insulin
Pre-Admission Diabetes Regimen
10/06/24
02:46
Creatinine 1.5 H
Lab Results
Hemoglobin A1c 8.0 % (4.0-5.6) H 09/28/24 08:53
Insulin Pump Settings
IP Diabetes Regimen
10/05/24 10/05/24 10/05/24
12:34 18:23 22:00
Glucose
POC Glucose 219 H 197 H 177 H
10/06/24 10/06/24
02:46 08:10
Glucose 148 H
POC Glucose 141 H
Meal type: Breakfast
Amount consumed: 95%
Patient Education
[2024-10-06] MEDS: NSS IV (10:54)
--- NOTE | 2024-10-06 11:00 | PTCARENOTE ---
Pt ambulating without issue in hallway without issue. Ambulated with cardiac rehab. 2 view x-ray completed.
--- NOTE | 2024-10-06 11:00 | CM ---
dc plans remain home with when medically stable, he is agreeable to a f/u visit from the ct transitional care nurse
[2024-10-06] MEDS: LOPRESSOR 12.5 MG PO (12:01)
[2024-10-06] MEDS: JANUVIA 50 MG PO (12:02)
[2024-10-06] MEDS: NOVOLOG FLEXPEN-LOW RESISTANCE 2 UNITS SC (12:10)
[2024-10-06 12:16] LABS: Glucose - Point of Care 236 mg/dl (70-99)
--- NOTE | 2024-10-06 12:17 | W.PN.CARDCBS ---
Today's Communication / Plan
-
Stable cardiology status for discharge
Impression / Plan
-
Noe is a 68-year-old gentleman with past medical history of hypertension, hyperlipidemia, dls-bfqsmjf-fgjjexmbh type 2 diabetes mellitus, mild Parkinson's disease not on chronic medications, non-smoker, prior hernia surgery, melanoma who
presented to ED 09/28/2024 with off-and-on substernal chest discomfort that started Sunday going into Sunday after using a rowing machine. He has newly started using the rowing machine for aerobic exercise and has used this 4 times over the last 3
weeks. He did his normal rowing on Sunday and later that day started appreciating some substernal chest discomfort that he was not sure was potentially related to gas pain given he also had a large [place] meal around similar timing. He then at
some point also noted very mild right jaw pain which made him concerned that it may be cardiac in nature and therefore he presented to the emergency room for evaluation. He received 2 sublingual nitroglycerin in the emergency room and became chest
pain-free he tells me. He has ongoing ' acid reflux' in his abdominal region which was concerning for the emergency room for ongoing cardiac pain and therefore patient was activated as a high risk NSTEMI. He was given full dose aspirin along with
unfractionated heparin and 2 sublingual nitro's in the emergency room. ECG showed sinus rhythm with Q waves inferiorly and posteriorly with nonspecific ST-T wave changes, not meeting STEMI criteria. Initial troponin I was elevated at 20.
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
PCP: Anand Mercado
Impression:
NSTEMI
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
s/p asystole with cardiovascular collapse requiring open chest cardiopulmonary resuscitation and emergent placement of temp V wire
Status post pacemaker 10/03/2024
ICM, EF 45-50% by echo 09/28/24
Hypertension
Hyperlipidemia
Uzl-iqciivq-piwpfmcqr type 2 diabetes mellitus
Mild Parkinson's disease, not on chronic medication
Melanoma
Non-smoker
Prior hernia repair
Retired
Family history of CAD at the age of 73
Left heart cath 09/28/2024:
Left main: 56% mid to distal disease
LAD: Proximal to mid LAD 7075% stenosis with distal LAD good bypass target, robust gwkx-[id number]-[id number] collaterals
Left circumflex: Mid left circumflex 80 to 85% stenosis. Proximal OM1 diffuse 50 to 60% stenosis. Distal OM good bypass target.
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
ECHO 09/28/24: EF 45 to 50%, hypokinesis of inferior wall and basal inferolateral akinesis, mild septal hypertrophy, stage I diastolic dysfunction, mild MR
Plan:
Stable cardiology status for discharge
Follow-up arranged
Discussed with CT surgery PA
Progress Note - Front End Developer Designer
Subjective
Date of Service: October 06, 2024
No complaints.
Objective
Labs:
10/06/24 02:46
10/06/24 02:46
Labs
Hgb 10.2 g/dL (13.0-18.0) L 10/06/24 02:46
Hct 29.1 % (39.0-52.0) L 10/06/24 02:46
Plt Count 179 10^3/uL (130-400) 10/06/24 02:46
PT 15.3 Sec (11.4-14.6) H 10/02/24 11:34
INR 1.16 10/02/24 11:34
APTT 123.6 Sec (23.4-35.0) H 10/02/24 05:08
Sodium 135 mmol/L (135-145) 10/06/24 02:46
Potassium 4.7 mmol/L (3.5-5.1) 10/06/24 02:46
BUN 54 mg/dl (9-20) H 10/06/24 02:46
Creatinine 1.5 mg/dL (0.7-1.3) H 10/06/24 02:46
Glucose 148 mg/dl (70-99) H 10/06/24 02:46
Vital Signs and I&O:
Vital Signs
Temp Pulse Resp BP Pulse Ox
97.8 F 67 16 103/59 100
10/06/24 08:00 10/06/24 08:14 10/06/24 08:00 10/06/24 08:14 10/06/24 08:14
Vital Signs
Temp Pulse Resp BP Pulse Ox
97.8 F 67 16 103/59 100
10/06/24 08:00 10/06/24 08:14 10/06/24 08:00 10/06/24 08:14 10/06/24 08:14
Intake & Output
10/04/24 10/05/24 10/06/24 10/07/24
06:59 06:59 06:59 06:59
Intake Total 535.1 / 535.1 735.4 / 735.4 580 / 580
Output Total 795 / 795 1870 / 1870
Balance -259.9 / -259.9 -1134.6 / -1134.6 580 / 580
Physical Exam
Physical Exam
General: Well developed, well nourished in NAD.
Neck: Supple, no JVD, HJR, carotids +2 B/L, no bruits bilaterally.
Heart: Non displaced PMI, RRR, no murmurs, No S3, S4, no rubs.
Lungs: Scattered rhonchi
Sternal dressings noted
Extremities: No clubbing, cyanosis or edema bilaterally.
Neuro: Grossly nonfocal, awake, alert and oriented x3.
--- NOTE | 2024-10-06 13:21 | PN.CDI ---
CDI
- -
CDI:
Physician Documentation Request
Admit Date: 09/28/24 07:[address] Surgery,
Clinical Indicators:
Patient admitted with N STEMI; s/p CABG x 3 10/02.
09/28 Cath Report: LVEDP 22; Lasix 40 mg IV x 1 given.
10/04 Cardiology note, 'Heart failure with mildly reduced ejection fraction'
10/04 PN, 'Acute postop hypovolemia with subsequent hypervolemia'
10/04, 10/05 Lasix doses given.
Due to potentially conflicting documentation, could you clarify in the progress notes, the appropriate diagnosis, if significant, that supports the above abnormalities and additional evaluation, monitoring and/or treatment rendered:
Acute HFrEF
Hypervolemia only
Other, please specify
Use of terms such as suspected, likely, concern for, or probable (associated with a specific diagnosis that is being evaluated, monitored, or treated as if it exists) are acceptable and can be coded in the inpatient setting, when documented at the
time of discharge.
Thank you,
KAYLEIGH Lopez RN
CDI Specialist
available via tiger text
Please use your independent medical judgment in providing your response.
--- NOTE | 2024-10-06 16:00 | PTCARENOTE ---
10/06/2024 DIABETES EDUCATION
I met with and Mrs. Harvey to review diabetes management.
I educated on physiology of T2D, T1D, organ damage, managing with medications, monitoring BG, nutrition, activity, sleep and managing stress. I reinforced signs of hyperglycemia, hypoglycemia and hypoglycemia protocol; BS parameters and recommended
HbA1c goals, glucometer and CGM instructions, glucose tracker, medic alert bracelet and outpatient DSME program. Written material provided.
I educated and reviewed using Contour Next glucometer, member acknowledged understanding with a self demonstration of checking BS. Provided him with a Contour Next sample kit. Member has Parkinsons that is mildly noticable, states he exercises and
stretches daily. He also has Reynaud's Disease and would like to consider a CGM. I will call his PCP Dr. Anand Khan to request an order.
Requested order for AccuCheck glucometer, test strips, and lancets upon discharge as per patient states he has [place].
I educated and demonstrated on insulin injection technique, timing, and storage. Discussed long and short acting insulin; onset/peak/duration, Discussed normal target glucose ranges and a monitoring schedule 15 minutes before each meal when
prescribed Novolog, and preprandial AM and/or bedtime as recommended by MD.
Encouraged patient to follow up with his PCP for post d/c appointment and to monitor medication and blood glucose levels. Provided list of endocrinologists if desired, to contact insurance company to verify in network status. R Patient
verbalized understanding.
--- NOTE | 2024-10-06 17:10 | PTCARENOTE ---
Discharge order received. Pt showered without issue. Peripheral IV's and tele monitor removed. Reviewed discharge instructions in length with pt and pt's , questions addressed. Pt stable at discharge. Escorted pt out via wheelchair.
== END 2024-10-06 17:15 | disposition home or self-care (01) | DRG 233 ==
LOC: CVICU 07:15
PROVIDERS: Anesthesiology; Internal Medicine; Internal Medicine Cardiovascular Disease; Nurse Practitioner; Physician Assistant Medical; ADMITTING PHYSICIAN Internal Medicine; ATTENDING PHYSICIAN Thoracic Surgery (Cardiothoracic Vascular Surgery); CONSULT PHYSICIAN Internal Medicine Critical Care Medicine; CONSULT PHYSICIAN Internal Medicine Interventional Cardiology; EMERGENCY PHYSICIAN Student in an Organized Health Care Education/Training Program; FAMILY PHYSICIAN Family Medicine
PROC: B2111ZZ Fluoroscopy of Multiple Coronary Arteries using Low Osmolar Contrast (ICD-10-PCS; 2024-09-28)
PROC: 4A023N7 Measurement of Cardiac Sampling and Pressure, Left Heart, Percutaneous Approach (ICD-10-PCS; 2024-09-28)
PROC: B2151ZZ Fluoroscopy of Left Heart using Low Osmolar Contrast (ICD-10-PCS; 2024-09-28)
PROC: 06BP4ZZ Excision of Right Saphenous Vein, Percutaneous Endoscopic Approach (ICD-10-PCS; 2024-10-02)
PROC: 5A12012 Performance of Cardiac Output, Single, Manual (ICD-10-PCS; 2024-10-02)
PROC: B24BZZ4 Ultrasonography of Heart with Aorta, Transesophageal (ICD-10-PCS; 2024-10-02)
PROC: 02100AW Bypass Coronary Artery, One Artery from Aorta with Autologous Arterial Tissue, Open Approach (ICD-10-PCS; 2024-10-02)
PROC: 02L70CK Occlusion of Left Atrial Appendage with Extraluminal Device, Open Approach (ICD-10-PCS; 2024-10-02)
PROC: 03BC4ZZ Excision of Left Radial Artery, Percutaneous Endoscopic Approach (ICD-10-PCS; 2024-10-02)
PROC: 02HK3JZ Insertion of Pacemaker Lead into Right Ventricle, Percutaneous Approach (ICD-10-PCS; 2024-10-02)
PROC: 5A1221Z Performance of Cardiac Output, Continuous (ICD-10-PCS; 2024-10-02)
PROC: 021009W Bypass Coronary Artery, One Artery from Aorta with Autologous Venous Tissue, Open Approach (ICD-10-PCS; 2024-10-02)
PROC: 5A1223Z Performance of Cardiac Pacing, Continuous (ICD-10-PCS; 2024-10-02)
PROC: 02100Z9 Bypass Coronary Artery, One Artery from Left Internal Mammary, Open Approach (ICD-10-PCS; 2024-10-02)
PROC: 02H63JZ Insertion of Pacemaker Lead into Right Atrium, Percutaneous Approach (ICD-10-PCS; 2024-10-03)
PROC: 0JH606Z Insertion of Pacemaker, Dual Chamber into Chest Subcutaneous Tissue and Fascia, Open Approach (ICD-10-PCS; 2024-10-03)
DX: I21.4 Non-ST elevation (NSTEMI) myocardial infarction (principal); I50.33 Acute on chronic diastolic (congestive) heart failure; R57.0 Cardiogenic shock; I44.2 Atrioventricular block, complete; I13.0 Hypertensive heart and chronic kidney disease with heart failure and stage 1 through stage 4 chronic kidney disease, or unspecified chronic kidney disease; D62 Acute posthemorrhagic anemia; J98.11 Atelectasis; G20.A1 Parkinson's disease without dyskinesia, without mention of fluctuations; I25.10 Atherosclerotic heart disease of native coronary artery without angina pectoris; E78.00 Pure hypercholesterolemia, unspecified; E11.65 Type 2 diabetes mellitus with hyperglycemia; N18.31 Chronic kidney disease, stage 3a; E11.22 Type 2 diabetes mellitus with diabetic chronic kidney disease; E87.5 Hyperkalemia; I95.81 Postprocedural hypotension; E04.1 Nontoxic single thyroid nodule; I49.5 Sick sinus syndrome; E87.70 Fluid overload, unspecified; E86.1 Hypovolemia; I25.5 Ischemic cardiomyopathy; Z79.84 Long term (current) use of oral hypoglycemic drugs; Z79.899 Other long term (current) drug therapy; Z82.49 Family history of ischemic heart disease and other diseases of the circulatory system; Z87.442 Personal history of urinary calculi
CPT/HCPCS: 33208; 71045; 71046; 71250; 80048; 80053; 80061; 80076; 81003; 81015; 82248; 82330; 82565; 82805; 82810; 82947; 82962; 83036; 83735; 84132; 84302; 84484; 84520; 85014; 85018; 85025; 85027; 85049; 85347; 85610; 85730; 86850; 86900; 86901; 86920; 93005; 93306; 93312; 93320; 93325; 93458; 93880; 93923; 93931; 94002; 96374; 99152; 99153; 99285; C1769; C1785; C1892; C1894; C1898; J2916; Q9967

== ENCOUNTER 2024-12-01 10:05 | Outpatient (RCR) | payer OTHER, SELFPAY ==
[2024-11-03 14:45] LABS: Glucose - Point of Care 218 mg/dl (70-99)
[2024-11-03 15:38] LABS: Glucose - Point of Care 146 mg/dl (70-99)
[2024-11-06 10:24] LABS: Glucose - Point of Care 277 mg/dl (70-99)
[2024-11-06 11:11] LABS: Glucose - Point of Care 220 mg/dl (70-99)
[2024-11-10 09:24] LABS: Glucose - Point of Care 167 mg/dl (70-99)
[2024-11-10 10:23] LABS: Glucose - Point of Care 159 mg/dl (70-99)
[2024-11-12 09:20] LABS: Glucose - Point of Care 221 mg/dl (70-99)
[2024-11-12 10:15] LABS: Glucose - Point of Care 218 mg/dl (70-99)
[2024-11-17 09:08] LABS: Glucose - Point of Care 188 mg/dl (70-99)
[2024-11-17 10:05] LABS: Glucose - Point of Care 151 mg/dl (70-99)
[2024-11-19 09:16] LABS: Glucose - Point of Care 127 mg/dl (70-99)
[2024-11-19 10:20] LABS: Glucose - Point of Care 124 mg/dl (70-99)
[2024-11-26 09:09] LABS: Glucose - Point of Care 193 mg/dl (70-99)
[2024-11-26 10:10] LABS: Glucose - Point of Care 148 mg/dl (70-99)
[2024-12-01 09:26] LABS: Glucose - Point of Care 190 mg/dl (70-99)
[2024-12-01 10:19] LABS: Glucose - Point of Care 136 mg/dl (70-99)
== END 2024-12-01 23:59 | disposition home or self-care (01) ==
LOC: CRHB 10:05
PROVIDERS: ATTENDING PHYSICIAN Internal Medicine Cardiovascular Disease; FAMILY PHYSICIAN Family Medicine
DX: I25.10 Atherosclerotic heart disease of native coronary artery without angina pectoris (principal); Z95.1 Presence of aortocoronary bypass graft; E78.5 Hyperlipidemia, unspecified; I10 Essential (primary) hypertension
CPT/HCPCS: 82962; G0422; G0423

== ENCOUNTER → 2024-12-18 07:49 | Outpatient (REF) | payer OTHER, SELFPAY | LOC: HWRAD 07:49 | PROVIDERS: ATTENDING PHYSICIAN Nurse Practitioner Family; FAMILY PHYSICIAN Family Medicine | DX: E04.1 Nontoxic single thyroid nodule (principal) | CPT/HCPCS: 76536 ==

== ENCOUNTER 2024-12-29 10:14 | Outpatient (RCR) | payer OTHER, SELFPAY ==
[2024-12-03 09:18] LABS: Glucose - Point of Care 223 mg/dl (70-99)
[2024-12-03 10:17] LABS: Glucose - Point of Care 137 mg/dl (70-99)
== END 2024-12-29 23:59 | disposition home or self-care (01) ==
LOC: CRHB 10:14
PROVIDERS: ATTENDING PHYSICIAN Internal Medicine Cardiovascular Disease; FAMILY PHYSICIAN Family Medicine
DX: Z95.1 Presence of aortocoronary bypass graft (principal)
CPT/HCPCS: 82962; G0422; G0423

== ENCOUNTER → 2024-12-31 10:25 | Outpatient (REF) | payer OTHER, SELFPAY ==
[2024-12-31 10:40] VITALS: BP 161/87; BP_SYST 59
== END ==
LOC: RADI 10:25
PROVIDERS: ATTENDING PHYSICIAN Nurse Practitioner Family
DX: E04.1 Nontoxic single thyroid nodule (principal)
CPT/HCPCS: 10005; 88173

== ENCOUNTER 2025-01-21 09:41 | Outpatient (RCR) | payer OTHER, SELFPAY | END 2025-01-21 23:59 | disposition home or self-care (01) | LOC: CRHB 09:41 | PROVIDERS: ATTENDING PHYSICIAN Internal Medicine Cardiovascular Disease; FAMILY PHYSICIAN Family Medicine | DX: Z95.1 Presence of aortocoronary bypass graft (principal) | CPT/HCPCS: G0422; G0423 ==

== ENCOUNTER 2025-02-10 10:10 | Outpatient (RCR) | payer OTHER, SELFPAY | END 2025-02-18 16:13 | disposition home or self-care (01) | LOC: CRHB 10:10 | PROVIDERS: ATTENDING PHYSICIAN Internal Medicine Cardiovascular Disease; FAMILY PHYSICIAN Family Medicine | DX: I25.10 Atherosclerotic heart disease of native coronary artery without angina pectoris (principal); Z95.1 Presence of aortocoronary bypass graft | CPT/HCPCS: G0422; G0423 ==